=== PATIENT | female | born 1980 | race Caucasian/White ===

== ENCOUNTER → 2021-01-25 | Outpatient (CLI) | payer SELFPAY ==
[2021-01-25 14:43] LABS: Basophils # (A) 0.12 X 10*3/uL (0.00-0.10); Basophils % (A) 1.3 %; Eosinophils # (A) 0.23 X 10*3/uL (0.04-0.35); Eosinophils % (A) 2.4 %; HCT 39.9 % (37.2-46.3); Lymphocytes # (A) 1.97 X 10*3/uL (0.90-5.00); Lymphocytes % (A) 20.5 %; MCH 31.4 pg (27.0-32.0); MCHC 32.6 g/dL (32.0-37.0); MCV 96.4 fL (80.0-97.0); Mean Platelet Volume 10.1 fL (9.5-12.2); Monocytes # (A) 0.78 X 10*3/uL (0.20-1.00); Monocytes % (A) 8.1 %; Neutrophils # (A) 6.48 X 10*3/uL (1.80-7.70); Neutrophils % (A) 67.5 %; Platelet Count 394 X 10*3/uL (140-440); RBC 4.14 X 10*6/uL (4.10-5.20); RDW 12.6 % (11.5-14.5)
[2021-01-25 15:40] LABS: ALT 18 U/L (8-44); AST 27 U/L (13-35); Albumin/Globulin Ratio 1.64 (1.60-3.17); Alkaline Phosphatase 70 U/L (41-126); Bilirubin, Conjugated <0.20 mg/dL (0.20-0.40); Chol/HDL Ratio 4.04; Cholesterol 210 mg/dL (0-200); Globulin 2.8 g/dL (1.6-3.3); Glucose 96 mg/dL (70-110); Iron 84 ug/dL (50-170); LDL Cholesterol,Calculated 135.4 mg/dL (0.0-131.0); Total Bilirubin 0.3 mg/dL (0.3-1.2); Total Iron Binding Capacity 356 ug/dL (228-460); Total Protein 7.4 g/dL (6.2-8.2)
[2021-01-25 20:37] LABS: Hemoglobin A1C 5.5 % (4.0-6.0)
== END | disposition home or self-care (01) ==
LOC: LABWHC1 08:51
DX: D50.9 Iron deficiency anemia, unspecified (principal); Z79.899 Other long term (current) drug therapy
CPT/HCPCS: 36415; 80061; 80076; 82728; 82947; 83036; 83540; 83550; 84439; 84443; 85025

== ENCOUNTER 2021-11-27 08:19 | Inpatient (IN) | payer OTHER ==
[2021-11-27 08:25] LABS: Glucose,Whole Blood >600 mg/dL (75-99)
[2021-11-27] MEDS ORDERED: SODIUM CHLORIDE 0.9% 1,000 ML IV ONE ×3 (08:34→11:26)
--- NOTE | 2021-11-27 08:38 | ED ---
General Adult HPI - General Chief complaint: Altered Mental Status Stated complaint: altered mental status Time Seen by Provider: 11/27/21 08:20 Source: patient, EMS, RN notes reviewed, old records reviewed Mode of arrival: EMS Limitations: altered mental status - History of Present Illness Initial comments: 41-year-old female presenting for evaluation of altered mental status. Patient was found outside by paramedics after daughter had called. Uncertain how long she was outside her what the exact circumstances were. She is confused but able to answer some simple questions. She denies pain complaints time my evaluation. She denies headache. Patient was noted to have a significantly elevated blood glucose by paramedics and there was no reported history of diabetes at least at this time. - Related Data Home Medications Medication Instructions Recorded Confirmed ALPRAZolam [Xanax] 0.5 mg PO HS 11/27/21 11/27/21 ALPRAZolam [Xanax] 1 mg PO DAILY 11/27/21 11/27/21 ARIPiprazole [Abilify] 10 mg PO DAILY 11/27/21 11/27/21 Escitalopram [Lexapro] 40 mg PO DAILY 11/27/21 11/27/21 lamoTRIgine [LaMICtal] 100 mg PO DAILY 11/27/21 11/27/21 Allergies Allergy/AdvReac Type Severity Reaction Status Date / Time Penicillins Allergy Unknown Verified 11/27/21 10:25 Review of Systems ROS Statement: Those systems with pertinent positive or pertinent negative responses have been documented in the HPI. ROS Other: All systems not noted in ROS Statement are negative. Past Medical History Additional Past Medical History / Comment(s): bipolar, high functioning autism History of Any Multi-Drug Resistant Organisms: Unobtainable Past Surgical History: Unable to Obtain Past Psychological History: Unable to Obtain Smoking Status: Unknown if ever smoked Past Alcohol Use History: Unable to Obtain Past Drug Use History: Unable to Obtain General Exam Limitations: altered mental status General appearance: lethargic, in distress Head exam: Present: atraumatic, normocephalic Eye exam: Present: normal appearance, PERRL ENT exam: Present: mucous membranes dry Neck exam: Present: normal inspection. Absent: tenderness, meningismus Respiratory exam: Present: respiratory distress (Tachypneic with good air entry bilaterally) Cardiovascular Exam: Present: regular rate, normal rhythm GI/Abdominal exam: Present: soft. Absent: distended, tenderness, guarding, rebound Extremities exam: Present: normal inspection, normal capillary refill. Absent: pedal edema Neurological exam: Present: alert. Absent: oriented X3 (Answering simple questions but slow to respond), motor sensory deficit Skin exam: Present: pallor. Absent: warm (Cold to touch) Course Vital Signs 11/27/21 11/27/21 11/27/21 08:21 08:35 08:50 Temperature 93.5 F L Pulse Rate 90 96 92 Respiratory 32 H 40 H 40 H Rate Blood Pressure 87/61 95/61 O2 Sat by Pulse 100 100 98 Oximetry 11/27/21 11/27/21 11/27/21 09:23 10:00 10:27 Temperature Pulse Rate 113 H 109 H 112 H Respiratory 40 H 40 H 32 H Rate Blood Pressure 118/71 106/71 110/71 O2 Sat by Pulse 98 98 98 Oximetry 11/27/21 10:48 Temperature 96.9 F L Pulse Rate 113 H Respiratory 30 H Rate Blood Pressure 120/80 O2 Sat by Pulse 97 Oximetry EKG Findings - EKG Comments: EKG Findings:: Sinus tachycardia rate of 110 SC interval 162, QRS duration 88, QTC 412, PTT was in the precordial leads, no ST segment elevation. Medical Decision Making - Medical Decision Making 41-year-old female presenting with confusion after being found outside. Further history is obtained from the patient's mother and daughter who states she had a vomiting illness throughout the day yesterday. Patient has no prior history of diabetes. Initial sugars greater than 600. Workup is initiated. She's profoundly acidotic on venous gas with a pH of 6.95. She has an undetectable CO2 she is in a accommodation of lactic acidosis and diabetic ketoacidosis with H&H at bedtime and hyperosmolality with a osmolality of 367. IV fluid resuscitation was begun immediately. Laboratory studies will be repeated on a regular basis. She will be continued on insulin drip and will saline infusion. She is admitted to Dr. Carrion as noted was aware of the patient and will be admitted to the ICU, Dr. Tripathi is able to evaluate the patient in the emergency department Chest x-ray and CT brain are pending. - Lab Data Result diagrams: 11/27/21 09:38 11/27/21 09:38 Lab Results 05/10/1611/27/21 11/27/21 Range/Units 08:24 08:34 09:38 WBC 28.4 H (3.8-10.6) k/uL RBC 4.68 (3.80-5.40) m/uL Hgb 14.3 (11.4-16.0) gm/dL Hct 51.1 H (34.0-46.0) % MCV 109.2 H (80.0-100.0) fL MCH 30.7 (25.0-35.0) pg MCHC 28.1 L (31.0-37.0) g/dL RDW 12.3 (11.5-15.5) % Plt Count 268 (150-450) k/uL MPV 10.7 Neutrophils % 86 % Lymphocytes % 8 % Monocytes % 5 % Eosinophils % 0 % Basophils % 1 % Neutrophils # 24.5 H (1.3-7.7) k/uL Lymphocytes # 2.1 (1.0-4.8) k/uL Monocytes # 1.3 H (0-1.0) k/uL Eosinophils # 0.1 (0-0.7) k/uL Basophils # 0.2 (0-0.2) k/uL Hypochromasia Marked Macrocytosis Moderate PT (9.0-12.0) sec INR (<1.2) APTT (22.0-30.0) sec VBG pH 6.95 L* (7.31-7.41) VBG pCO2 12 L* (37-51) mmHg VBG HCO3 2 L* (24-28) mmol/L Sodium (137-145) mmol/L Potassium (3.5-5.1) mmol/L Chloride (98-107) mmol/L Carbon Dioxide (22-30) mmol/L Anion Gap mmol/L BUN (7-17) mg/dL Creatinine (0.52-1.04) mg/dL Est GFR (CKD-EPI)AfAm (>60 ml/min/1.73 sqM) Est GFR (CKD-EPI)NonAf (>60 ml/min/1.73 sqM) Glucose (74-99) mg/dL POC Glucose (mg/dL) >600 H (75-99) mg/dL POC Glu Stapler Machine ID Marcia, Gaston Osmolality (280-301) mosm/kg Plasma Lactic Acid Telly (0.7-2.0) mmol/L Calcium (8.4-10.2) mg/dL Magnesium (1.6-2.3) mg/dL Total Bilirubin (0.2-1.3) mg/dL AST (14-36) U/L ALT (4-34) U/L Alkaline Phosphatase (38-126) U/L Creatine Kinase (30-135) U/L Troponin I (0.000-0.034) ng/mL Total Protein (6.3-8.2) g/dL Albumin (3.5-5.0) g/dL Serum Alcohol mg/dL Acetone, Qual (Negative) 11/27/21 11/27/21 11/27/21 Range/Units 09:38 09:38 09:55 WBC (3.8-10.6) k/uL RBC (3.80-5.40) m/uL Hgb (11.4-16.0) gm/dL Hct (34.0-46.0) % MCV (80.0-100.0) fL MCH (25.0-35.0) pg MCHC (31.0-37.0) g/dL RDW (11.5-15.5) % Plt Count (150-450) k/uL MPV Neutrophils % % Lymphocytes % % Monocytes % % Eosinophils % % Basophils % % Neutrophils # (1.3-7.7) k/uL Lymphocytes # (1.0-4.8) k/uL Monocytes # (0-1.0) k/uL Eosinophils # (0-0.7) k/uL Basophils # (0-0.2) k/uL Hypochromasia Macrocytosis PT 10.8 (9.0-12.0) sec INR 1.0 (<1.2) APTT 23.9 (22.0-30.0) sec VBG pH (7.31-7.41) VBG pCO2 (37-51) mmHg VBG HCO3 (24-28) mmol/L Sodium 136 L (137-145) mmol/L Potassium 5.0 (3.5-5.1) mmol/L Chloride 95 L (98-107) mmol/L Carbon Dioxide <5 L* (22-30) mmol/L Anion Gap mmol/L BUN 26 H (7-17) mg/dL Creatinine 2.77 H (0.52-1.04) mg/dL Est GFR (CKD-EPI)AfAm 24 (>60 ml/min/1.73 sqM) Est GFR (CKD-EPI)NonAf 21 (>60 ml/min/1.73 sqM) Glucose 1131 H* (74-99) mg/dL POC Glucose (mg/dL) (75-99) mg/dL POC Glu Stapler Machine ID Osmolality (280-301) mosm/kg Plasma Lactic Acid Telly 5.8 H* (0.7-2.0) mmol/L Calcium 9.5 (8.4-10.2) mg/dL Magnesium 3.0 H (1.6-2.3) mg/dL Total Bilirubin 0.6 (0.2-1.3) mg/dL AST 28 (14-36) U/L ALT 20 (4-34) U/L Alkaline Phosphatase 143 H (38-126) U/L Creatine Kinase 26 L (30-135) U/L Troponin I (0.000-0.034) ng/mL Total Protein 8.3 H (6.3-8.2) g/dL Albumin 5.0 (3.5-5.0) g/dL Serum Alcohol <10 mg/dL Acetone, Qual Positive (Negative) 11/27/21 11/27/21 Range/Units 09:55 09:55 WBC (3.8-10.6) k/uL RBC (3.80-5.40) m/uL Hgb (11.4-16.0) gm/dL Hct (34.0-46.0) % MCV (80.0-100.0) fL MCH (25.0-35.0) pg MCHC (31.0-37.0) g/dL RDW (11.5-15.5) % Plt Count (150-450) k/uL MPV Neutrophils % % Lymphocytes % % Monocytes % % Eosinophils % % Basophils % % Neutrophils # (1.3-7.7) k/uL Lymphocytes # (1.0-4.8) k/uL Monocytes # (0-1.0) k/uL Eosinophils # (0-0.7) k/uL Basophils # (0-0.2) k/uL Hypochromasia Macrocytosis PT (9.0-12.0) sec INR (<1.2) APTT (22.0-30.0) sec VBG pH (7.31-7.41) VBG pCO2 (37-51) mmHg VBG HCO3 (24-28) mmol/L Sodium (137-145) mmol/L Potassium (3.5-5.1) mmol/L Chloride (98-107) mmol/L Carbon Dioxide (22-30) mmol/L Anion Gap mmol/L BUN (7-17) mg/dL Creatinine (0.52-1.04) mg/dL Est GFR (CKD-EPI)AfAm (>60 ml/min/1.73 sqM) Est GFR (CKD-EPI)NonAf (>60 ml/min/1.73 sqM) Glucose (74-99) mg/dL POC Glucose (mg/dL) (75-99) mg/dL POC Glu Stapler Machine ID Osmolality 367 H* (280-301) mosm/kg Plasma Lactic Acid Telly (0.7-2.0) mmol/L Calcium (8.4-10.2) mg/dL Magnesium (1.6-2.3) mg/dL Total Bilirubin (0.2-1.3) mg/dL AST (14-36) U/L ALT (4-34) U/L Alkaline Phosphatase (38-126) U/L Creatine Kinase (30-135) U/L Troponin I <0.012 (0.000-0.034) ng/mL Total Protein (6.3-8.2) g/dL Albumin (3.5-5.0) g/dL Serum Alcohol mg/dL Acetone, Qual (Negative) Critical Care Time Critical Care Time: Yes Total Critical Care Time: 35 Disposition Clinical Impression: Delirium due to general medical condition, Altered mental status, Hyperosmolar hyperglycemic state (HHS), DKA (diabetic ketoacidosis) Disposition: ADMITTED IP TO THIS HOSP Condition: Serious Is patient prescribed a controlled substance at d/c from ED?: No Time of Disposition: 10:58
[2021-11-27 09:58] LABS: ALT 20 U/L (4-34); AST 28 U/L (14-36); African American GFR (CKD) 24 (>60 ml/min/1.73 sqM); Alcohol <10 mg/dL; Alkaline Phosphatase 143 U/L (38-126); Blood Urea Nitrogen 26 mg/dL (7-17); Calcium 9.5 mg/dL (8.4-10.2); Chloride 95 mmol/L (98-107); Creatine Kinase 26 U/L (30-135); Non-African American GFR(CKD) 21 (>60 ml/min/1.73 sqM); Sodium 136 mmol/L (137-145); Total Bilirubin 0.6 mg/dL (0.2-1.3); Total Protein 8.3 g/dL (6.3-8.2)
[2021-11-27 10:12] LABS: Carbon Dioxide <5 mmol/L (22-30)
[2021-11-27 10:13] LABS: Glucose 1131 mg/dL (74-99)
[2021-11-27 10:14] LABS: VBG PH 6.95 (7.31-7.41)
[2021-11-27 10:27] LABS: Basophils # (A) 0.2 k/uL (0-0.2); Basophils % (A) 1 %; Eosinophils # (A) 0.1 k/uL (0-0.7); Eosinophils % (A) 0 %; HCT 51.1 % (34.0-46.0); HGB 14.3 gm/dL (11.4-16.0); Hypochromasia Marked; Lymphocytes # (A) 2.1 k/uL (1.0-4.8); Lymphocytes % (A) 8 %; MCH 30.7 pg (25.0-35.0); MCHC 28.1 g/dL (31.0-37.0); MCV 109.2 fL (80.0-100.0); Macrocytosis Moderate; Mean Platelet Volume 10.7; Monocytes # (A) 1.3 k/uL (0-1.0); Monocytes % (A) 5 %; Neutrophils # (A) 24.5 k/uL (1.3-7.7); Neutrophils % (A) 86 %; Platelet Count 268 k/uL (150-450); RBC 4.68 m/uL (3.80-5.40); RDW 12.3 % (11.5-15.5); WBC 28.4 k/uL (3.8-10.6)
[2021-11-27] MEDS ORDERED: D5-0.45% NACL WITH KCL 20MEQ/L 1,000 ML IV SCH (10:30)
[2021-11-27] MEDS: INSULIN REGULAR 100 UNIT in SODIUM CHLORIDE 0.9% 100 ML IV SCH ×3 (10:42→22:00)
[2021-11-27] MEDS: SODIUM CHLORIDE 0.9% 1,000 ML IV SCH ×4 (10:44→23:40)
[2021-11-27 10:52] LABS: Glucose,Whole Blood >600 mg/dL (75-99)
[2021-11-27 10:54] LABS: ABG Oxygen Saturation 97.3 % (94-97); ABG PO2 138 mmHg (83-108); Allen Test Performed? Yes
[2021-11-27 10:54] LABS: Partial Thromboplastin Time 23.9 sec (22.0-30.0); Prothrombin Time 10.8 sec (9.0-12.0)
[2021-11-27 10:56] LABS: ABG PCO2 <15 mmHg (35-45); ABG PH 6.93 (7.35-7.45)
--- NOTE | 2021-11-27 11:37 | CT ---
EXAMINATION TYPE: CT brain wo con DATE OF EXAM: 11/27/2021 COMPARISON: None HISTORY: Altered mental status. CT DLP: 1159.4 mGycm. Automated Exposure Control for Dose Reduction was Utilized. TECHNIQUE: CT scan of the head is performed without contrast. FINDINGS: There is limited exam due to artifact. Findings are suspicious for a area of low attenuat ion involving the right temporal lobe. No obvious acute hemorrhage or mass effect. No midline shift. Calvarium intact. Orbits are symmetric. Cerebellar tonsils low-lying in position. Sella turcica has a normal appearance . Sinuses are clear. Asymmetric fullness to the right cavernous sinus. Recommend follow-up MRI. IMPRESSION: 1. Exam is limited due to artifact however, there is a suggestion of an area of low attenuation invol ving the right temporal lobe. This may be artifactual although early ischemia or other etiologies in the differential diagnosis. Recommend MRI of the brain. Correlate for any history of seizure.
[2021-11-27] MEDS: HEPARIN SODIUM,PORCINE/PF 5,000 UNIT/0.5 ML SYRINGE SQ SCH ×2 (11:42→20:20)
[2021-11-27] MEDS: PANTOPRAZOLE 40 MG/10 ML VIAL IVP SCH (11:42)
[2021-11-27 11:52] LABS: Glucose,Whole Blood >600 mg/dL (75-99)
--- NOTE | 2021-11-27 11:53 | XR ---
EXAMINATION TYPE: XR chest 1V portable DATE OF EXAM: 11/27/2021 COMPARISON: NONE HISTORY: Altered mental status TECHNIQUE: Single frontal view of the chest is obtained. FINDINGS: There is patchy density present at the left costophrenic angle level possibly right, pleur al effusion, or pneumothorax seen. The cardiac silhouette size is within normal limits. There are o verlying leads. The osseous structures are intact. IMPRESSION: Correlate for pneumonia, follow-up recommended
--- NOTE | 2021-11-27 12:00 | P.CNPUL ---
History of Present Illness Consult date: 11/27/21 Requesting physician: Meghna Eugene Reason for consult: other (Acute diabetic ketoacidosis) Chief complaint: Altered mental status and vomiting History of present illness: This is a 41-year-old female with history of bipolar disorder, no previous documented history of diabetes. No previous medical illnesses except for bipolar disorder and generalized anxiety disorder, history of depression, geoff abreu was found on the ground by her daughter and paramedics were called. Upon arrival, the patient was on the ground, and confused. Patient could only answer very simple questions. And she has been complaining of vomiting for one day. No other symptoms. It is not clear how long has the patient was down on the ground. Patient was brought into the ER, she was noted to be confused, altered mental status, her initial workup revealed a blood sugar as high as 1131, patient was acidotic, she had a significantly elevated anion gap, she was metabolically acidotic, and she had positive ketones. Lactic acid was 5.8. ABG showed a pO2 of 138 pCO2 of less than 15 pH of 6.93 and bicarb was less than 5. CBC showed leukocytosis with WBC of 28.4. Hemoglobin 14.3. CT of the brain showed an area of low attenuation involving the temporal lobe/right, and the radiologist couldn't tell whether this is artifactual or suggestive of ischemic change. Hence he recommended MRI. Question and history of seizure, but the clinical history does not suggest any seizure history. According to her mom and to her daughter at bedside. As a matter of fact according to her family members, patient has never been diagnosed with diabetes the patient herself is a very poor historian. And she is fairly confused. Review of Systems ROS unobtainable: due to mental status Past Medical History Additional Past Medical History / Comment(s): bipolar, high functioning autism History of Any Multi-Drug Resistant Organisms: Unobtainable Past Surgical History: Unable to Obtain Past Psychological History: Unable to Obtain Smoking Status: Unknown if ever smoked Past Alcohol Use History: Unable to Obtain Past Drug Use History: Unable to Obtain Medications and Allergies Home Medications Medication Instructions Recorded Confirmed Type ALPRAZolam [Xanax] 0.5 mg PO HS 11/27/21 11/27/21 History ALPRAZolam [Xanax] 1 mg PO DAILY 11/27/21 11/27/21 History ARIPiprazole [Abilify] 10 mg PO DAILY 11/27/21 11/27/21 History Escitalopram [Lexapro] 40 mg PO DAILY 11/27/21 11/27/21 History lamoTRIgine [LaMICtal] 100 mg PO DAILY 11/27/21 11/27/21 History Allergies Allergy/AdvReac Type Severity Reaction Status Date / Time Penicillins Allergy Unknown Verified 11/27/21 10:25 Physical Exam Vitals: Vital Signs Temp Pulse Resp BP Pulse Ox 11/27/21 10:48 96.9 F L 113 H 30 H 120/80 97 11/27/21 10:27 112 H 32 H 110/71 98 11/27/21 10:00 109 H 40 H 106/71 98 11/27/21 09:23 113 H 40 H 118/71 98 11/27/21 08:50 92 40 H 95/61 98 11/27/21 08:35 96 40 H 100 11/27/21 08:21 93.5 F L 90 32 H 87/61 100 Intake and Output 11/26/21 11/27/21 11/27/21 22:59 06:59 14:59 Other: Weight 63.503 kg General appearance: Revealed a 41-year-old female, lethargic, confused, not in respiratory distress. Head exam: Atraumatic, normocephalic. Eye exam: PERRLA, EOMI, nonicteric, dry mucous membranes. ENT exam: Dry mucous membranes otherwise negative. Neck exam: Supple no neck masses no JVD no stridor. Respiratory exam: Symmetrical chest expansion clear throughout no crackles or rhonchi or wheezes Cardiovascular Exam: Normal S1 and S2, no S3 gallop. GI/Abdominal exam: Soft nontender no megaly no rebound no guarding. Extremities exam: No clubbing edema or cyanosis. Neurological exam: Arousable, answers very simple questions, confused, otherwise no gross focal deficit. Skin exam: Dry skin, cold to touch. Results - Laboratory Findings CBC and BMP: 11/27/21 09:38 11/27/21 09:38 ABG ABG pH 6.93 (7.35-7.45) L* 11/27/21 10:51 ABG pCO2 <15 mmHg (35-45) L* 11/27/21 10:51 ABG pO2 138 mmHg (83-108) H 11/27/21 10:51 ABG O2 Saturation 97.3 % (94-97) H 11/27/21 10:51 PT/INR, D-dimer PT 10.8 sec (9.0-12.0) 11/27/21 09:55 INR 1.0 (<1.2) 11/27/21 09:55 Abnormal lab findings: Abnormal Labs 11/27/21 11/27/21 11/27/21 08:24 08:34 09:38 WBC 28.4 H Hct 51.1 H MCV 109.2 H MCHC 28.1 L Neutrophils # 24.5 H Monocytes # 1.3 H ABG pH ABG pCO2 ABG pO2 ABG O2 Saturation VBG pH 6.95 L* VBG pCO2 12 L* VBG HCO3 2 L* Sodium Chloride Carbon Dioxide BUN Creatinine Glucose POC Glucose (mg/dL) >600 H Osmolality Plasma Lactic Acid Telly Magnesium Alkaline Phosphatase Creatine Kinase Total Protein 11/27/21 11/27/21 11/27/21 09:38 09:38 09:55 WBC Hct MCV MCHC Neutrophils # Monocytes # ABG pH ABG pCO2 ABG pO2 ABG O2 Saturation VBG pH VBG pCO2 VBG HCO3 Sodium 136 L Chloride 95 L Carbon Dioxide <5 L* BUN 26 H Creatinine 2.77 H Glucose 1131 H* POC Glucose (mg/dL) Osmolality 367 H* Plasma Lactic Acid Telly 5.8 H* Magnesium 3.0 H Alkaline Phosphatase 143 H Creatine Kinase 26 L Total Protein 8.3 H 11/27/21 11/27/21 10:41 10:51 WBC Hct MCV MCHC Neutrophils # Monocytes # ABG pH 6.93 L* ABG pCO2 <15 L* ABG pO2 138 H ABG O2 Saturation 97.3 H VBG pH VBG pCO2 VBG HCO3 Sodium Chloride Carbon Dioxide BUN Creatinine Glucose POC Glucose (mg/dL) >600 H Osmolality Plasma Lactic Acid Telly Magnesium Alkaline Phosphatase Creatine Kinase Total Protein - Diagnostic Findings Chest x-ray: image reviewed (Chest x-ray is suspicious for left lower lobe infiltrate/atelectasis) Additional studies: CT brain as noted earlier in HPI. Assessment and Plan Assessment: Impression: New onset diabetes with acute diabetic ketoacidosis Left lower lobe pneumonia, possible aspiration considering her clinical history. Abnormal CT of the brain, questionable artifact versus ischemic infarct in the right parietal lobe. Hence I'm recommending neurological evaluation. History of bipolar disorder. Anion gap metabolic acidosis secondary to acute DKA. Acute kidney injury secondary to DKA, suspect pre-renal azotemia. Left lower lobe pneumonia, community-acquired or could be related to aspiration. Leukocytosis secondary to above Recommendation: Admit the patient to the ICU. Continue treatment of DKA as per protocol. Close monitoring of her electrolytes and specially potassium as it may need significant replacement as we correct her DKA. Continue IV fluids and insulin drip. GI and DVT prophylaxis. Empiric antibiotics for presumptive left lower lobe pneumonia Neurological consultation for abnormal CT of the brain. Discussed her clinical situation with the family at bedside including mother and daughter. We will continue to follow. Time with Patient: Greater than 30
[2021-11-27 12:11] LABS: Glucose,Whole Blood >600 mg/dL (75-99)
[2021-11-27 12:46] LABS: Glucose,Whole Blood >600 mg/dL (75-99)
--- NOTE | 2021-11-27 13:19 | P.HPIM ---
History of Present Illness 41-year-old female came in altered mental status patient is unresponsive at this time unable to get any history from the patient patient that was found by the daughter in the driveway unresponsive. Patient is found to have highly elevated blood sugars of 11,000 with an anion gap of around 36. Patient is not a diabetic. Patient usually can drive although patient does have some hemorrhoidal issues including ADHD. Patient is subsequently admitted to ICU. Patient has lactic acid of around 5.8 chest x-ray was read as possibly of pneumonia because of which patient was started on Rocephin and maybe some aspiration. Unable to look at the X-ray images at this time, CT of the brain showed an area of low attenuation involving the temporal lobe on the right side probably artifact. REVIEW OF SYSTEMS: Unable to obtain due to her clinical condition PHYSICAL EXAMINATION: GENERAL: Drowsy CPAP response to painful stimuli not in any acute distress. Well developed, well nourished. HEENT: Pupils are round and equally reacting to light. EOMI. No scleral icterus. No conjunctival pallor. Normocephalic, atraumatic. No pharyngeal erythema. No thyromegaly. CARDIOVASCULAR: S1 and S2 present. No murmurs, rubs, or gallops. PULMONARY: Chest is clear to auscultation, no wheezing or crackles. ABDOMEN: Soft, nontender, nondistended, normoactive bowel sounds. No palpable organomegaly. MUSCULOSKELETAL: No joint swelling or deformity. EXTREMITIES: No cyanosis, clubbing, or pedal edema. NEUROLOGICAL: Unable to assess due to her clinical condition SKIN: No rashes. Assessment and plan -Altered mental status. Once encephalopathy secondary to highly elevated blood sugars. -New-onset type 2 diabetes mellitus with the diabetic ketoacidosis/hyperosmolar state patient is on 200 mL of normal saline and patient is on IV insulin which will be continued close monitoring of electrolytes. Patient is presently on DKA protocol -Findings of the artifact versus ischemic infarct. -Bipolar disorder -Anion gap metabolic acidosis secondary to DKA lactic acidosis and lactic acidosis secondary to severe dehydration next and have an acute renal failure related azotemia secondary to dehydration from a hyperosmolar state and hyperglycemic state. -Possibly of left lower lobe pneumonia may be aspiration continue with her pre sent antibiotics -Leukocytosis secondary to diabetic ketoacidosis as well as pneumonia. DVT prophylaxis: Subcutaneous heparin Past Medical History Additional Past Medical History / Comment(s): Recently complained of eyesight problem. History of Any Multi-Drug Resistant Organisms: None Reported Past Surgical History: Section, Orthopedic Surgery Additional Past Surgical History / Comment(s): L wrist ganglion cystectomy. Past Anesthesia/Blood Transfusion Reactions: No Reported Reaction Smoking Status: Current every day smoker - Past Family History Father Family Medical History: Vascular Disorder Additional Family Medical History / Comment(s): AAA, has pacemaker. Paternal greatgrandmother had diabetes. Mother Family Medical History: Cancer, Thyroid Disorder Additional Family Medical History / Comment(s): Grave's disease, breast cancer twice. Maternal grandmother had diabetes later in life. Medications and Allergies Home Medications Medication Instructions Recorded Confirmed Type ALPRAZolam [Xanax] 0.5 mg PO HS 11/27/21 11/27/21 History ALPRAZolam [Xanax] 1 mg PO DAILY 11/27/21 11/27/21 History ARIPiprazole [Abilify] 10 mg PO DAILY 11/27/21 11/27/21 History Escitalopram [Lexapro] 40 mg PO DAILY 11/27/21 11/27/21 History lamoTRIgine [LaMICtal] 100 mg PO DAILY 11/27/21 11/27/21 History Allergies Allergy/AdvReac Type Severity Reaction Status Date / Time Penicillins Allergy Unknown Verified 11/27/21 10:25 Physical Exam Vitals: Vital Signs Temp Pulse Resp BP Pulse Ox 11/27/21 12:11 125 H 42 H 124/84 97 11/27/21 11:00 131 H 28 H 126/65 98 11/27/21 10:48 96.9 F L 113 H 30 H 120/80 97 11/27/21 10:27 112 H 32 H 110/71 98 11/27/21 10:00 109 H 40 H 106/71 98 11/27/21 09:23 113 H 40 H 118/71 98 11/27/21 08:50 92 40 H 95/61 98 11/27/21 08:35 96 40 H 100 11/27/21 08:21 93.5 F L 90 32 H 87/61 100 Intake and Output 11/26/21 11/27/21 11/27/21 22:59 06:59 14:59 Intake Total 13.256 Balance 13.256 Intake: Intake, IV Titration 13.256 Amount Insulin Regular 100 unit 13.256 In Sodium Chloride 0.9% 100 ml @ 0.1 UNITS/KG/HR 6.414 mls/hr IV .[id number] [facility] Rx#:[id number] Other: Weight 63.503 kg Results CBC & Chem 7: 11/27/21 09:38 11/27/21 09:38 Labs: Abnormal Lab Results - Last 24 Hours (Table) 11/27/21 11/27/21 11/27/21 Range/Units 08:24 08:34 09:38 WBC 28.4 H (3.8-10.6) k/uL Hct 51.1 H (34.0-46.0) % MCV 109.2 H (80.0-100.0) fL MCHC 28.1 L (31.0-37.0) g/dL Neutrophils # 24.5 H (1.3-7.7) k/uL Monocytes # 1.3 H (0-1.0) k/uL ABG pH (7.35-7.45) ABG pCO2 (35-45) mmHg ABG pO2 (83-108) mmHg ABG O2 Saturation (94-97) % VBG pH 6.95 L* (7.31-7.41) VBG pCO2 12 L* (37-51) mmHg VBG HCO3 2 L* (24-28) mmol/L Sodium (137-145) mmol/L Chloride (98-107) mmol/L Carbon Dioxide (22-30) mmol/L BUN (7-17) mg/dL Creatinine (0.52-1.04) mg/dL Glucose (74-99) mg/dL POC Glucose (mg/dL) >600 H (75-99) mg/dL Osmolality (280-301) mosm/kg Plasma Lactic Acid Telly (0.7-2.0) mmol/L Magnesium (1.6-2.3) mg/dL Alkaline Phosphatase (38-126) U/L Creatine Kinase (30-135) U/L Total Protein (6.3-8.2) g/dL 11/27/21 11/27/21 11/27/21 Range/Units 09:38 09:38 09:55 WBC (3.8-10.6) k/uL Hct (34.0-46.0) % MCV (80.0-100.0) fL MCHC (31.0-37.0) g/dL Neutrophils # (1.3-7.7) k/uL Monocytes # (0-1.0) k/uL ABG pH (7.35-7.45) ABG pCO2 (35-45) mmHg ABG pO2 (83-108) mmHg ABG O2 Saturation (94-97) % VBG pH (7.31-7.41) VBG pCO2 (37-51) mmHg VBG HCO3 (24-28) mmol/L Sodium 136 L (137-145) mmol/L Chloride 95 L (98-107) mmol/L Carbon Dioxide <5 L* (22-30) mmol/L BUN 26 H (7-17) mg/dL Creatinine 2.77 H (0.52-1.04) mg/dL Glucose 1131 H* (74-99) mg/dL POC Glucose (mg/dL) (75-99) mg/dL Osmolality 367 H* (280-301) mosm/kg Plasma Lactic Acid Telly 5.8 H* (0.7-2.0) mmol/L Magnesium 3.0 H (1.6-2.3) mg/dL Alkaline Phosphatase 143 H (38-126) U/L Creatine Kinase 26 L (30-135) U/L Total Protein 8.3 H (6.3-8.2) g/dL 11/27/21 11/27/21 11/27/21 Range/Units 10:41 10:51 11:51 WBC (3.8-10.6) k/uL Hct (34.0-46.0) % MCV (80.0-100.0) fL MCHC (31.0-37.0) g/dL Neutrophils # (1.3-7.7) k/uL Monocytes # (0-1.0) k/uL ABG pH 6.93 L* (7.35-7.45) ABG pCO2 <15 L* (35-45) mmHg ABG pO2 138 H (83-108) mmHg ABG O2 Saturation 97.3 H (94-97) % VBG pH (7.31-7.41) VBG pCO2 (37-51) mmHg VBG HCO3 (24-28) mmol/L Sodium (137-145) mmol/L Chloride (98-107) mmol/L Carbon Dioxide (22-30) mmol/L BUN (7-17) mg/dL Creatinine (0.52-1.04) mg/dL Glucose (74-99) mg/dL POC Glucose (mg/dL) >600 H >600 H (75-99) mg/dL Osmolality (280-301) mosm/kg Plasma Lactic Acid Telly (0.7-2.0) mmol/L Magnesium (1.6-2.3) mg/dL Alkaline Phosphatase (38-126) U/L Creatine Kinase (30-135) U/L Total Protein (6.3-8.2) g/dL 11/27/21 11/27/21 Range/Units 12:09 12:44 WBC (3.8-10.6) k/uL Hct (34.0-46.0) % MCV (80.0-100.0) fL MCHC (31.0-37.0) g/dL Neutrophils # (1.3-7.7) k/uL Monocytes # (0-1.0) k/uL ABG pH (7.35-7.45) ABG pCO2 (35-45) mmHg ABG pO2 (83-108) mmHg ABG O2 Saturation (94-97) % VBG pH (7.31-7.41) VBG pCO2 (37-51) mmHg VBG HCO3 (24-28) mmol/L Sodium (137-145) mmol/L Chloride (98-107) mmol/L Carbon Dioxide (22-30) mmol/L BUN (7-17) mg/dL Creatinine (0.52-1.04) mg/dL Glucose (74-99) mg/dL POC Glucose (mg/dL) >600 H >600 H (75-99) mg/dL Osmolality (280-301) mosm/kg Plasma Lactic Acid Telly (0.7-2.0) mmol/L Magnesium (1.6-2.3) mg/dL Alkaline Phosphatase (38-126) U/L Creatine Kinase (30-135) U/L Total Protein (6.3-8.2) g/dL Thrombosis Risk Factor Assmnt - Choose All That Apply Any of the Below Risk Factors Present?: Yes Each Factor Represents 1 point: Medical pt on bed rest Other Risk Factors: Yes Each Risk Factor Represents 2 Points: Patient confined to bed Other congenital or acquired thrombophilia - If yes, enter type in comment: No Thrombosis Risk Factor Assessment Total Risk Factor Score: 3 Thrombosis Risk Factor Assessment Level: Moderate Risk
[2021-11-27 13:22] LABS: African American GFR (CKD) 31 (>60 ml/min/1.73 sqM); Blood Urea Nitrogen 25 mg/dL (7-17); Calcium 10.3 mg/dL (8.4-10.2); Chloride 113 mmol/L (98-107); Non-African American GFR(CKD) 27 (>60 ml/min/1.73 sqM); Phosphorus 3.8 mg/dL (2.5-4.5); Potassium 5.1 mmol/L (3.5-5.1); Sodium 148 mmol/L (137-145)
[2021-11-27 13:24] LABS: Carbon Dioxide <5 mmol/L (22-30)
[2021-11-27 13:38] LABS: Glucose,Whole Blood >600 mg/dL (75-99)
[2021-11-27 15:08] LABS: Glucose,Whole Blood 494 mg/dL (75-99)
[2021-11-27] MEDS: AZITHROMYCIN 500 MG in SODIUM CHLORIDE 0.9% 250 ML IVPB SCH (15:12)
[2021-11-27 15:59] LABS: Glucose,Whole Blood 527 mg/dL (75-99)
[2021-11-27 16:48] LABS: Amorphous Sediment,Urine Rare /hpf; Appearance,Urine Cloudy (Clear); Bacteria,Urine Occasional /hpf; Bilirubin,Urine Negative (Negative); Blood,Urine Moderate (Negative); Cellular Casts,Urine 6 /lpf (0); Color,Urine Light Yellow; Glucose,Urine (UA) 4+ (Negative); Granular Casts,Urine 16 /lpf (0); Hyaline Casts,Urine 1 /lpf (0-2); Leukocyte Esterase,Urine Negative (Negative); Mucus,Urine Rare /hpf; Nitrite,Urine Negative (Negative); PH, Urine 5.5 (5.0-8.0); Protein,Urine 1+ (Negative); RBC,Urine 3 /hpf (0-5); Specific Gravity,Urine 1.016 (1.001-1.035); Squamous Epithelial Cell,Urine 1 /hpf (0-4); Urobilinogen,Urine <2.0 mg/dL (<2.0); WBC,Urine 8 /hpf (0-5)
[2021-11-27 16:50] LABS: African American GFR (CKD) 35 (>60 ml/min/1.73 sqM); Blood Urea Nitrogen 27 mg/dL (7-17); Calcium 9.3 mg/dL (8.4-10.2); Chloride 117 mmol/L (98-107); Glucose 497 mg/dL (74-99); Non-African American GFR(CKD) 30 (>60 ml/min/1.73 sqM); Phosphorus 1.6 mg/dL (2.5-4.5); Potassium 3.8 mmol/L (3.5-5.1); Sodium 147 mmol/L (137-145)
[2021-11-27 16:52] LABS: Carbon Dioxide <5 mmol/L (22-30)
--- NOTE | 2021-11-27 16:53 | P.CNNES ---
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 Patient's mother was present at this time, who states that patient was having nausea vomiting continuously throughout the day yesterday. Last known well was 8:30 PM last time when she was in usual state of health although she was vomiting. This morning patient was found laying outside on the ground, at 7:20 AM. Unsure for how long she was laying outside. According to EMS flowsheet, when they arrived, found patient laying on the couch , altered and lethargic the GCS of 13. Daughter on location stated that her mother always transferred her to school. This morning when she couldn't find her mother she looked outside and saw her laying in the driveway. She noticed her mother was confused and slow to respond. She was able to get the patient to her feet and had to assist her to walk around inside. She does not know how long was she outside. No seizure history. When EMS evaluated, patient would open her eyes to some questions but did not know what is going on or what day it was. There was no facial droop and the patient was moving her extremities freely. The patient's extremities were "depression she was pale. Glucose was 405. Patient's daughter mentioned that patient was nauseated and vomited all day yesterday. EKG shows sinus tachycardia on the monitor. Patient was given a fluid bolus and oxygen was started at 3 later per minute. Patient became more alert and opening her eyes more frequently. She was still confused. Patient's blood pressure was 104/61 pulse rate 170 and respirations 16, saturation 97%. CT head revealed exam limited due to artifact however there is suggestion of an area of low attenuation involving the right temporal lobe. This may be artifactual although early ischemia or other etiologies in the differential diagnosis. Recommend MRI of the brain. I personally reviewed computed tomography scan of the head, and agree with the patient appears probably artifactual. EKG shows sinus tachycardia. Chest x-ray showed correlation for pneumonia, follow-up recommended. Patient's blood tests shows WBC 28.4 hemoglobin 14.3 elevated MCV 109.2, platelets 268. PT/PTT normal. VBG with pH 6.95, pCO2 12 and at C3 to. Sodium 136 potassium 5.0, BUN 26 creatinine 2.77. Glucose was 1131. Osmolality was elevated at 367/301. Lactic acid was 5.8. Hepatic panel normal. CPK normal. Troponin negative. Serum acetone was positive. Blood alcohol level negative. Patient's ABG showed pH of 6.93, pCO2 less than 15, pO2 138 saturation 97%. Patient had a previous EEG performed on 01/11/2015 for "rule out absence Seizures", Which Was Normal. Calcium 10.3. At present patient's mother has noticed that when she speaks, she is slurring her words. Patient has smoked 1 pack per day for 20 years. Denies any alcohol. No hypertension, no previous history of diabetes. Review of Systems Patient's mother states that she had no fever. She did test Covid home testing, that was negative yesterday. Patient has bipolar disorder under control. Also has high functioning autistic disorder that was diagnosed at age 29. ROS unobtainable: due to mental status Past Medical History Additional Past Medical History / Comment(s): Recently complained of eyesight problem. History of Any Multi-Drug Resistant Organisms: None Reported Past Surgical History: Section, Orthopedic Surgery Additional Past Surgical History / Comment(s): L wrist ganglion cystectomy. Past Anesthesia/Blood Transfusion Reactions: No Reported Reaction Smoking Status: Current every day smoker - Past Family History Father Family Medical History: Vascular Disorder Additional Family Medical History / Comment(s): AAA, has pacemaker. Paternal greatgrandmother had diabetes. Mother Family Medical History: Cancer, Thyroid Disorder Additional Family Medical History / Comment(s): Grave's disease, breast cancer twice. Maternal grandmother had diabetes later in life. Medications and Allergies Home Medications Medication Instructions Recorded Confirmed Type ALPRAZolam [Xanax] 0.5 mg PO HS 11/27/21 11/27/21 History ALPRAZolam [Xanax] 1 mg PO DAILY 11/27/21 11/27/21 History ARIPiprazole [Abilify] 10 mg PO DAILY 11/27/21 11/27/21 History Escitalopram [Lexapro] 40 mg PO DAILY 11/27/21 11/27/21 History lamoTRIgine [LaMICtal] 100 mg PO DAILY 11/27/21 11/27/21 History Allergies Allergy/AdvReac Type Severity Reaction Status Date / Time Penicillins Allergy Unknown Verified 11/27/21 10:25 Physical Examination - Vital Signs Vital Signs: Vital Signs Temp Pulse Resp BP Pulse Ox 11/27/21 13:00 97.6 F 133 H 25 H 125/106 98 11/27/21 12:11 125 H 42 H 124/84 97 11/27/21 11:00 131 H 28 H 126/65 98 11/27/21 10:48 96.9 F L 113 H 30 H 120/80 97 11/27/21 10:27 112 H 32 H 110/71 98 11/27/21 10:00 109 H 40 H 106/71 98 11/27/21 09:23 113 H 40 H 118/71 98 11/27/21 08:50 92 40 H 95/61 98 11/27/21 08:35 96 40 H 100 11/27/21 08:21 93.5 F L 90 32 H 87/61 100 Intake and Output 11/26/21 11/27/21 11/27/21 22:59 06:59 14:59 Intake Total 19.555 Balance 19.555 Intake: Intake, IV Titration 19.555 Amount Insulin Regular 100 unit 19.555 In Sodium Chloride 0.9% 100 ml @ 0.1 UNITS/KG/HR 6.414 mls/hr IV .[id number] [facility] Rx#:[id number] Other: Weight 63.503 kg Patient is a middle aged female, who is obviously encephalopathic, laying in the bed. Patient is minimally opening her eyes to calling her name. She then closes it right away. When asked about headache patient states "yes". Then states "not really". When she was asked again if she is headache, she nodded yes. She could not rate the headache on scale of 1-10. Limited speech was clear. Attention, concentration is severely limited and f und of knowledge cannot be assessed because of mentation. On cranial examination, pupils are equal, round and reacting to light, visual huntley could not be tested. Her extraocular muscles are intact with no nystagmus. Face is symmetric, she did not protrude her tongue. Lower cranial nerves could not be tested because of mental status. On muscle strength testing, patient dinkey engine firer/fireman is equal about 4+ bilaterally. She would not hold her arms up and would drop it down right away onto the bed. Yolanda ent began her feet to painful stimuli equally. She does move her legs spontaneously equally per nurse and mother's report. No obvious focal weakness. Deep tendon reflexes are 1 in the upper limbs, 2+ at the knees, 2 at ankles and plantars downgoing bilaterally. Sensory to touch cannot be assessed because of mentation. Sensory to painful similar was equal responses bilaterally in the feet. Cerebellar function cannot be tested because of mental status. Tone and bulk of muscles normal. Gait not tested. On general examination, there is no carotid bruit or murmur, S1-S2 audible. Abdomen is soft nontender. No organomegaly, bowel sounds present. Chest is clear. Peripheral pulses are present. No edema. Results - Laboratory Findings CBC and BMP: 11/27/21 09:38 11/27/21 13:06 Abnormal Lab Findings: Abnormal Labs 11/27/21 11/27/21 11/27/21 08:24 08:34 09:38 WBC 28.4 H Hct 51.1 H MCV 109.2 H MCHC 28.1 L Neutrophils # 24.5 H Monocytes # 1.3 H ABG pH ABG pCO2 ABG pO2 ABG O2 Saturation VBG pH 6.95 L* VBG pCO2 12 L* VBG HCO3 2 L* Sodium Chloride Carbon Dioxide BUN Creatinine Glucose POC Glucose (mg/dL) >600 H Osmolality Plasma Lactic Acid Telly Calcium Magnesium Alkaline Phosphatase Creatine Kinase Total Protein 11/27/21 11/27/21 11/27/21 09:38 09:38 09:55 WBC Hct MCV MCHC Neutrophils # Monocytes # ABG pH ABG pCO2 ABG pO2 ABG O2 Saturation VBG pH VBG pCO2 VBG HCO3 Sodium 136 L Chloride 95 L Carbon Dioxide <5 L* BUN 26 H Creatinine 2.77 H Glucose 1131 H* POC Glucose (mg/dL) Osmolality 367 H* Plasma Lactic Acid Telly 5.8 H* Calcium Magnesium 3.0 H Alkaline Phosphatase 143 H Creatine Kinase 26 L Total Protein 8.3 H 11/27/21 11/27/21 11/27/21 10:41 10:51 11:51 WBC Hct MCV MCHC Neutrophils # Monocytes # ABG pH 6.93 L* ABG pCO2 <15 L* ABG pO2 138 H ABG O2 Saturation 97.3 H VBG pH VBG pCO2 VBG HCO3 Sodium Chloride Carbon Dioxide BUN Creatinine Glucose POC Glucose (mg/dL) >600 H >600 H Osmolality Plasma Lactic Acid Telly Calcium Magnesium Alkaline Phosphatase Creatine Kinase Total Protein 11/27/21 11/27/21 11/27/21 12:09 12:44 13:06 WBC Hct MCV MCHC Neutrophils # Monocytes # ABG pH ABG pCO2 ABG pO2 ABG O2 Saturation VBG pH VBG pCO2 VBG HCO3 Sodium 148 H Chloride 113 H Carbon Dioxide <5 L* BUN 25 H Creatinine 2.24 H Glucose POC Glucose (mg/dL) >600 H >600 H Osmolality Plasma Lactic Acid Telly Calcium 10.3 H Magnesium Alkaline Phosphatase Creatine Kinase Total Protein 11/27/21 13:36 WBC Hct MCV MCHC Neutrophils # Monocytes # ABG pH ABG pCO2 ABG pO2 ABG O2 Saturation VBG pH VBG pCO2 VBG HCO3 Sodium Chloride Carbon Dioxide BUN Creatinine Glucose POC Glucose (mg/dL) >600 H Osmolality Plasma Lactic Acid Telly Calcium Magnesium Alkaline Phosphatase Creatine Kinase Total Protein Assessment and Plan Assessment: * Altered mental status, likely due to toxic metabolic encephalopathy. * Probable nonketotic hyperosmolar state versus DKA * Hypothermia on presentation (due to found laying down on the ground for unknown period of time). Now temperature is normal. * Acidosis, due to above * New-onset diabetes * Moderate renal insufficiency, uncertain new or old. Perhaps due to dehydration. * High functioning autistic disorder * Macrocytosis, rule out B12, folate deficiency. * Bipolar disorder Plan: * Patient's computed tomography scan of the head revealed questionable abnormality involving the right temporal lobe. It does look artifactual. However we will check MRI of the brain. * EEG to rule out any epileptiform activity. * Medical management as per IM/critical care. * Hemoglobin A1c. B12, folate levels. * Neurology will follow. Thank you for the consult.
[2021-11-27 17:01] LABS: Amphetamine Screen,Urine Not Detected (NotDetected); Barbiturate Screen,Urine Not Detected (NotDetected); Benzodiazepines Screen,Urine Detected (NotDetected); Cocaine Screen,Urine Not Detected (NotDetected); Methadone Screen, Urine Not Detected (NotDetected); Opiate Screen,Urine Not Detected (NotDetected); Oxycodone Screen, Urine Not Detected (NotDetected); Phencyclidine Screen,Urine Not Detected (NotDetected); Tricyclic Antidepressant,Urine Not Detected (NotDetected); Urn Cannabinoid Scrn Detected (NotDetected)
[2021-11-27 17:07] LABS: Glucose,Whole Blood 425 mg/dL (75-99)
[2021-11-27 17:09] LABS: Ketones,Urine 4+ (Negative)
[2021-11-27] MEDS ORDERED: Phosphorus Replacement Protoco 1 EACH MISC MISCELLANE PRN (17:41)
[2021-11-27] MEDS ORDERED: NALOXONE 0.4 MG/ML 1 ML VIAL IV PRN (17:45)
[2021-11-27 18:12] LABS: Glucose,Whole Blood 376 mg/dL (75-99)
[2021-11-27] MEDS: POTASSIUM PHOSPHATE 10 MMOL in SODIUM CHLORIDE 0.9% 250 ML IV SCH ×3 (18:22→22:06)
[2021-11-27 19:03] LABS: Glucose,Whole Blood 346 mg/dL (75-99)
[2021-11-27 20:17] LABS: Glucose,Whole Blood 291 mg/dL (75-99)
[2021-11-27] MEDS: D5-0.45% NACL WITH KCL 20MEQ/L 1,000 ML IV SCH ×3 (20:19→23:02)
[2021-11-27 21:09] LABS: Glucose,Whole Blood 288 mg/dL (75-99)
[2021-11-27 22:03] LABS: Glucose,Whole Blood 291 mg/dL (75-99)
[2021-11-27 22:35] LABS: Calcium 9.3 mg/dL (8.4-10.2); Phosphorus 1.1 mg/dL (2.5-4.5); Potassium 3.6 mmol/L (3.5-5.1)
[2021-11-27 23:02] LABS: Glucose,Whole Blood 243 mg/dL (75-99)
[2021-11-28 00:04] LABS: Glucose,Whole Blood 208 mg/dL (75-99)
[2021-11-28 01:01] LABS: Glucose,Whole Blood 190 mg/dL (75-99)
[2021-11-28] MEDS: INSULIN REGULAR 100 UNIT in SODIUM CHLORIDE 0.9% 100 ML IV SCH (01:10)
[2021-11-28 01:49] LABS: Calcium 9.1 mg/dL (8.4-10.2); Potassium 3.3 mmol/L (3.5-5.1)
[2021-11-28] MEDS ORDERED: Potassium Replacement Protocol 1 EACH MISC MISCELLANE PRN (01:52)
[2021-11-28 02:01] LABS: Glucose,Whole Blood 171 mg/dL (75-99)
[2021-11-28] MEDS: POTASSIUM CHLORIDE 10 MEQ in WATER FOR INJECTION 1 100ML.BAG IVPB SCH ×4 (02:29→08:17)
[2021-11-28] MEDS: D5-0.45% NACL WITH KCL 20MEQ/L 1,000 ML IV SCH ×3 (03:00→09:38)
[2021-11-28 03:05] LABS: Glucose,Whole Blood 114 mg/dL (75-99)
[2021-11-28 03:57] LABS: Glucose,Whole Blood 88 mg/dL (75-99)
[2021-11-28 04:38] LABS: Glucose,Whole Blood 91 mg/dL (75-99)
[2021-11-28 05:46] LABS: Glucose,Whole Blood 141 mg/dL (75-99)
[2021-11-28] MEDS: SODIUM CHLORIDE 0.9% 1,000 ML IV SCH ×2 (06:14→09:27)
[2021-11-28 06:49] LABS: Basophils % (A) 0 %; Eosinophils # (A) 0.1 k/uL (0-0.7); Eosinophils % (A) 1 %; HCT 36.6 % (34.0-46.0); HGB 11.6 gm/dL (11.4-16.0); Lymphocytes # (A) 0.9 k/uL (1.0-4.8); Lymphocytes % (A) 4 %; MCH 30.1 pg (25.0-35.0); MCHC 31.8 g/dL (31.0-37.0); Mean Platelet Volume 9.7; Monocytes # (A) 1.1 k/uL (0-1.0); Monocytes % (A) 4 %; Neutrophils # (A) 22.1 k/uL (1.3-7.7); Neutrophils % (A) 89 %; Platelet Count 305 k/uL (150-450); RBC 3.86 m/uL (3.80-5.40); RDW 12.4 % (11.5-15.5); WBC 24.7 k/uL (3.8-10.6)
[2021-11-28 06:53] LABS: Glucose,Whole Blood 169 mg/dL (75-99)
[2021-11-28 07:04] LABS: MCV 94.8 fL (80.0-100.0)
[2021-11-28 07:11] LABS: African American GFR (CKD) 48 (>60 ml/min/1.73 sqM); Anion Gap 12 mmol/L; Blood Urea Nitrogen 29 mg/dL (7-17); Calcium 9.1 mg/dL (8.4-10.2); Carbon Dioxide 12 mmol/L (22-30); Chloride 126 mmol/L (98-107); Glucose 127 mg/dL (74-99); Non-African American GFR(CKD) 42 (>60 ml/min/1.73 sqM); Phosphorus 1.2 mg/dL (2.5-4.5); Sodium 150 mmol/L (137-145)
[2021-11-28 07:59] LABS: Glucose,Whole Blood 129 mg/dL (75-99)
[2021-11-28] MEDS: PANTOPRAZOLE 40 MG/10 ML VIAL IVP SCH (08:28)
[2021-11-28] MEDS: HEPARIN SODIUM,PORCINE/PF 5,000 UNIT/0.5 ML SYRINGE SQ SCH ×2 (08:28→21:00)
--- NOTE | 2021-11-28 08:57 | XR ---
EXAMINATION TYPE: XR chest 1V DATE OF EXAM: 11/28/2021 COMPARISON: 11/27/2021 HISTORY: Altered mental status TECHNIQUE: Single frontal view of the chest is obtained. FINDINGS: Bilateral lower lobe infiltrate and small effusion. Heart size stable. No pneumothorax. Bi apical pleural thickening. Heart size stable. IMPRESSION: Bilateral infiltrate and small effusion stable correlate for pneumonia.
[2021-11-28] MEDS: AZITHROMYCIN 500 MG in SODIUM CHLORIDE 0.9% 250 ML IVPB SCH (09:16)
[2021-11-28 09:19] LABS: Glucose,Whole Blood 146 mg/dL (75-99)
--- NOTE | 2021-11-28 09:53 | P.PN ---
Subjective Progress Note Date: 11/28/21 Principal diagnosis: New onset diabetes mellitus This is a 41-year-old female with history of bipolar disorder, no previous documented history of diabetes. No previous medical illnesses except for bipolar disorder and generalized anxiety disorder, history of depression, patient was found on the ground by her daughter and paramedics were called. Upon arrival, the patient was on the ground, and confused. Patient could only answer very simple questions. And she has been complaining of vomiting for one day. No other symptoms. It is not clear how long has the patient was down on the ground. Patient was brought into the ER, she was noted to be confused, altered mental status, her initial workup revealed a blood sugar as high as 1131, patient was acidotic, she had a significantly elevated anion gap, she was metabolically acidotic, and she had positive ketones. Lactic acid was 5.8. ABG showed a pO2 of 138 pCO2 of less than 15 pH of 6.93 and bicarb was less than 5. CBC showed leukocytosis with WBC of 28.4. Hemoglobin 14.3. CT of the brain showed an area of low attenuation involving the temporal lobe/right, and the radiologist couldn't tell whether this is artifactual or suggestive of ischemic change. Hence he recommended MRI. Question and history of seizure, but the clinical history does not suggest any seizure history. According to her mom and to her daughter at bedside. As a matter of fact according to her family members, patient has never been diagnosed with diabetes the patient herself is a very poor historian. And she is fairly confused. The patient is seen today 11/28/2021 in follow-up in the intensive care unit. She is more awake and alert today. She is slow to respond but answering questions appropriately. She is maintaining good O2 saturations in the 90s on room air. Chest x-ray continues to show bilateral infiltrates and small effusions. She remains on ceftriaxone and azithromycin. Her blood glucose levels have improved. She is on D5 and half-normal saline with 20 mEq of potassium chloride at 150 MLS per hour. Insulin drip at 2.1 units per hour. Denies any nausea or vomiting currently. Remaining in normal sinus rhythm. White count 24.7. Hemoglobin 11.6. Sodium 150. Potassium 4.0. Chloride 126. Bicarb 12. Anion gap 12. BUN 29. Creatinine 1.55. Glucose 127. Objective - Vital Signs Vital signs: Vital Signs Temp 97.8 F 11/28/21 08:00 Pulse 80 11/28/21 09:00 Resp 24 11/28/21 09:00 BP 117/71 11/28/21 09:00 Pulse Ox 98 11/28/21 09:00 Intake & Output 11/27/21 11/28/21 11/28/21 18:59 06:59 18:59 Intake Total 6474.284 0793.615 629.293 Output Total 1320 515 125 Balance 643.873 2053.615 504.293 Weight 63.503 kg 72.3 kg Intake: IV 1760 2610 620 Azithromycin 500 mg In 250 250 Sodium Chloride 0.9% 250 ml @ 250 mls/hr IVPB DAILY [facility] Rx#:[id number] D5-0.45% NaCl with KCl 1650 300 20Meq/l 1,000 ml @ 150 mls/hr IV .[id number] [facility] Rx# :[id number] Potassium Chloride 10 meq 300 In Water For Injection 1 100ml.bag @ 100 mls/hr IVPB Q1HR [facility] Rx#: [id number] Potassium Phosphate 10 250 mmol In Sodium Chloride 0 .9% 250 ml @ 125 mls/hr IV Q2H [facility] Rx#:[id number] Sodium Chloride 0.9% 1, 1400 400 000 ml @ 200 mls/hr IV . Q5H [facility] Rx#:[id number] Sodium Chloride 0.9% 1000 60 10 20 ml @ 10 mls/hr IV [id number] 1 gm In 50 50 Sodium Chloride 0.9% 50 ml @ 100 mls/hr IVPB Q24HR [facility] Rx#:[id number] Intake, IV Titration 71.087 130.615 9.293 Amount Insulin Regular 100 unit 71.087 130.615 9.293 In Sodium Chloride 0.9% 100 ml @ 0.1 UNITS/KG/HR 6.414 mls/hr IV .[id number] [facility] Rx#:[id number] Output: Urine 1320 515 125 Other: Voiding Method Indwelling Catheter Indwelling Catheter - Exam GENERAL EXAM: Alert, slow to respond but appropriate 41-year-old female patient, on room air, comfortable in no apparent distress. HEAD: Normocephalic. EYES: Normal reaction of pupils, equal size. NOSE: Clear with pink turbinates. THROAT: No erythema or exudates. NECK: No masses, no JVD. CHEST: No chest wall deformity. LUNGS: Equal air entry with basilar crackles left greater than right. CVS: S1 and S2 normal with no audible murmur, regular rhythm. ABDOMEN: No hepatosplenomegaly, normal bowel sounds, no guarding or rigidity. SPINE: No scoliosis or deformity SKIN: No rashes CENTRAL NERVOUS SYSTEM: No focal deficits, tone is normal in all 4 extremities. EXTREMITIES: There is no peripheral edema. No clubbing, no cyanosis. Peripheral pulses are intact. - Labs CBC & Chem 7: 11/28/21 05:39 11/28/21 05:39 Labs: Abnormal Lab Results - Last 24 Hours (Table) 11/27/21 11/27/21 11/27/21 Range/Units 08:34 09:38 09:38 WBC 28.4 H (3.8-10.6) k/uL Hct 51.1 H (34.0-46.0) % MCV 109.2 H (80.0-100.0) fL MCHC 28.1 L (31.0-37.0) g/dL Neutrophils # 24.5 H (1.3-7.7) k/uL Lymphocytes # (1.0-4.8) k/uL Monocytes # 1.3 H (0-1.0) k/uL ABG pH (7.35-7.45) ABG pCO2 (35-45) mmHg ABG pO2 (83-108) mmHg ABG O2 Saturation (94-97) % VBG pH 6.95 L* (7.31-7.41) VBG pCO2 12 L* (37-51) mmHg VBG HCO3 2 L* (24-28) mmol/L Sodium 136 L (137-145) mmol/L Potassium (3.5-5.1) mmol/L Chloride 95 L (98-107) mmol/L Carbon Dioxide <5 L* (22-30) mmol/L BUN 26 H (7-17) mg/dL Creatinine 2.77 H (0.52-1.04) mg/dL Glucose 1131 H* (74-99) mg/dL POC Glucose (mg/dL) (75-99) mg/dL Hemoglobin A1c (0.0-6.0) % Osmolality (280-301) mosm/kg Plasma Lactic Acid Telly (0.7-2.0) mmol/L Calcium (8.4-10.2) mg/dL Phosphorus (2.5-4.5) mg/dL Magnesium 3.0 H (1.6-2.3) mg/dL Alkaline Phosphatase 143 H (38-126) U/L Creatine Kinase 26 L (30-135) U/L Total Protein 8.3 H (6.3-8.2) g/dL Vitamin B12 (200.0-944.0) pg/mL Urine Appearance (Clear) Urine Protein (Negative) Urine Glucose (UA) (Negative) Urine Ketones (Negative) Urine Blood (Negative) Urine WBC (0-5) /hpf Amorphous Sediment (None) /hpf Urine Bacteria (None) /hpf Urine Mucus (None) /hpf U Benzodiazepines Scrn (NotDetected) U Marijuana (THC) Screen (NotDetected) 11/27/21 11/27/21 11/27/21 Range/Units 09:38 09:55 10:41 WBC (3.8-10.6) k/uL Hct (34.0-46.0) % MCV (80.0-100.0) fL MCHC (31.0-37.0) g/dL Neutrophils # (1.3-7.7) k/uL Lymphocytes # (1.0-4.8) k/uL Monocytes # (0-1.0) k/uL ABG pH (7.35-7.45) ABG pCO2 (35-45) mmHg ABG pO2 (83-108) mmHg ABG O2 Saturation (94-97) % VBG pH (7.31-7.41) VBG pCO2 (37-51) mmHg VBG HCO3 (24-28) mmol/L Sodium (137-145) mmol/L Potassium (3.5-5.1) mmol/L Chloride (98-107) mmol/L Carbon Dioxide (22-30) mmol/L BUN (7-17) mg/dL Creatinine (0.52-1.04) mg/dL Glucose (74-99) mg/dL POC Glucose (mg/dL) >600 H (75-99) mg/dL Hemoglobin A1c (0.0-6.0) % Osmolality 367 H* (280-301) mosm/kg Plasma Lactic Acid Telly 5.8 H* (0.7-2.0) mmol/L Calcium (8.4-10.2) mg/dL Phosphorus (2.5-4.5) mg/dL Magnesium (1.6-2.3) mg/dL Alkaline Phosphatase (38-126) U/L Creatine Kinase (30-135) U/L Total Protein (6.3-8.2) g/dL Vitamin B12 (200.0-944.0) pg/mL Urine Appearance (Clear) Urine Protein (Negative) Urine Glucose (UA) (Negative) Urine Ketones (Negative) Urine Blood (Negative) Urine WBC (0-5) /hpf Amorphous Sediment (None) /hpf Urine Bacteria (None) /hpf Urine Mucus (None) /hpf U Benzodiazepines Scrn (NotDetected) U Marijuana (THC) Screen (NotDetected) 11/27/21 11/27/21 11/27/21 Range/Units 10:51 11:51 12:09 WBC (3.8-10.6) k/uL Hct (34.0-46.0) % MCV (80.0-100.0) fL MCHC (31.0-37.0) g/dL Neutrophils # (1.3-7.7) k/uL Lymphocytes # (1.0-4.8) k/uL Monocytes # (0-1.0) k/uL ABG pH 6.93 L* (7.35-7.45) ABG pCO2 <15 L* (35-45) mmHg ABG pO2 138 H (83-108) mmHg ABG O2 Saturation 97.3 H (94-97) % VBG pH (7.31-7.41) VBG pCO2 (37-51) mmHg VBG HCO3 (24-28) mmol/L Sodium (137-145) mmol/L Potassium (3.5-5.1) mmol/L Chloride (98-107) mmol/L Carbon Dioxide (22-30) mmol/L BUN (7-17) mg/dL Creatinine (0.52-1.04) mg/dL Glucose (74-99) mg/dL POC Glucose (mg/dL) >600 H >600 H (75-99) mg/dL Hemoglobin A1c (0.0-6.0) % Osmolality (280-301) mosm/kg Plasma Lactic Acid Telly (0.7-2.0) mmol/L Calcium (8.4-10.2) mg/dL Phosphorus (2.5-4.5) mg/dL Magnesium (1.6-2.3) mg/dL Alkaline Phosphatase (38-126) U/L Creatine Kinase (30-135) U/L Total Protein (6.3-8.2) g/dL Vitamin B12 (200.0-944.0) pg/mL Urine Appearance (Clear) Urine Protein (Negative) Urine Glucose (UA) (Negative) Urine Ketones (Negative) Urine Blood (Negative) Urine WBC (0-5) /hpf Amorphous Sediment (None) /hpf Urine Bacteria (None) /hpf Urine Mucus (None) /hpf U Benzodiazepines Scrn (NotDetected) U Marijuana (THC) Screen (NotDetected) 11/27/21 11/27/21 11/27/21 Range/Units 12:44 13:06 13:36 WBC (3.8-10.6) k/uL Hct (34.0-46.0) % MCV (80.0-100.0) fL MCHC (31.0-37.0) g/dL Neutrophils # (1.3-7.7) k/uL Lymphocytes # (1.0-4.8) k/uL Monocytes # (0-1.0) k/uL ABG pH (7.35-7.45) ABG pCO2 (35-45) mmHg ABG pO2 (83-108) mmHg ABG O2 Saturation (94-97) % VBG pH (7.31-7.41) VBG pCO2 (37-51) mmHg VBG HCO3 (24-28) mmol/L Sodium 148 H (137-145) mmol/L Potassium (3.5-5.1) mmol/L Chloride 113 H (98-107) mmol/L Carbon Dioxide <5 L* (22-30) mmol/L BUN 25 H (7-17) mg/dL Creatinine 2.24 H (0.52-1.04) mg/dL Glucose (74-99) mg/dL POC Glucose (mg/dL) >600 H >600 H (75-99) mg/dL Hemoglobin A1c (0.0-6.0) % Osmolality (280-301) mosm/kg Plasma Lactic Acid Telly (0.7-2.0) mmol/L Calcium 10.3 H (8.4-10.2) mg/dL Phosphorus (2.5-4.5) mg/dL Magnesium (1.6-2.3) mg/dL Alkaline Phosphatase (38-126) U/L Creatine Kinase (30-135) U/L Total Protein (6.3-8.2) g/dL Vitamin B12 (200.0-944.0) pg/mL Urine Appearance (Clear) Urine Protein (Negative) Urine Glucose (UA) (Negative) Urine Ketones (Negative) Urine Blood (Negative) Urine WBC (0-5) /hpf Amorphous Sediment (None) /hpf Urine Bacteria (None) /hpf Urine Mucus (None) /hpf U Benzodiazepines Scrn (NotDetected) U Marijuana (THC) Screen (NotDetected) 11/27/21 11/27/21 11/27/21 Range/Units 14:00 15:06 15:56 WBC (3.8-10.6) k/uL Hct (34.0-46.0) % MCV (80.0-100.0) fL MCHC (31.0-37.0) g/dL Neutrophils # (1.3-7.7) k/uL Lymphocytes # (1.0-4.8) k/uL Monocytes # (0-1.0) k/uL ABG pH (7.35-7.45) ABG pCO2 (35-45) mmHg ABG pO2 (83-108) mmHg ABG O2 Saturation (94-97) % VBG pH (7.31-7.41) VBG pCO2 (37-51) mmHg VBG HCO3 (24-28) mmol/L Sodium (137-145) mmol/L Potassium (3.5-5.1) mmol/L Chloride (98-107) mmol/L Carbon Dioxide (22-30) mmol/L BUN (7-17) mg/dL Creatinine (0.52-1.04) mg/dL Glucose (74-99) mg/dL POC Glucose (mg/dL) 494 H 527 H (75-99) mg/dL Hemoglobin A1c (0.0-6.0) % Osmolality (280-301) mosm/kg Plasma Lactic Acid Telly 2.6 H* (0.7-2.0) mmol/L Calcium (8.4-10.2) mg/dL Phosphorus (2.5-4.5) mg/dL Magnesium (1.6-2.3) mg/dL Alkaline Phosphatase (38-126) U/L Creatine Kinase (30-135) U/L Total Protein (6.3-8.2) g/dL Vitamin B12 (200.0-944.0) pg/mL Urine Appearance (Clear) Urine Protein (Negative) Urine Glucose (UA) (Negative) Urine Ketones (Negative) Urine Blood (Negative) Urine WBC (0-5) /hpf Amorphous Sediment (None) /hpf Urine Bacteria (None) /hpf Urine Mucus (None) /hpf U Benzodiazepines Scrn (NotDetected) U Marijuana (THC) Screen (NotDetected) 11/27/21 11/27/21 11/27/21 Range/Units 16:08 16:08 16:24 WBC (3.8-10.6) k/uL Hct (34.0-46.0) % MCV (80.0-100.0) fL MCHC (31.0-37.0) g/dL Neutrophils # (1.3-7.7) k/uL Lymphocytes # (1.0-4.8) k/uL Monocytes # (0-1.0) k/uL ABG pH (7.35-7.45) ABG pCO2 (35-45) mmHg ABG pO2 (83-108) mmHg ABG O2 Saturation (94-97) % VBG pH (7.31-7.41) VBG pCO2 (37-51) mmHg VBG HCO3 (24-28) mmol/L Sodium 147 H (137-145) mmol/L Potassium (3.5-5.1) mmol/L Chloride 117 H (98-107) mmol/L Carbon Dioxide <5 L* (22-30) mmol/L BUN 27 H (7-17) mg/dL Creatinine 2.02 H (0.52-1.04) mg/dL Glucose 497 H (74-99) mg/dL POC Glucose (mg/dL) (75-99) mg/dL Hemoglobin A1c 13.7 H (0.0-6.0) % Osmolality (280-301) mosm/kg Plasma Lactic Acid Telly (0.7-2.0) mmol/L Calcium (8.4-10.2) mg/dL Phosphorus 1.6 L (2.5-4.5) mg/dL Magnesium (1.6-2.3) mg/dL Alkaline Phosphatase (38-126) U/L Creatine Kinase (30-135) U/L Total Protein (6.3-8.2) g/dL Vitamin B12 >2000.0 H (200.0-944.0) pg/mL Urine Appearance (Clear) Urine Protein (Negative) Urine Glucose (UA) (Negative) Urine Ketones (Negative) Urine Blood (Negative) Urine WBC (0-5) /hpf Amorphous Sediment (None) /hpf Urine Bacteria (None) /hpf Urine Mucus (None) /hpf U Benzodiazepines Scrn (NotDetected) U Marijuana (THC) Screen (NotDetected) 11/27/21 11/27/21 11/27/21 Range/Units 16:24 16:29 17:04 WBC (3.8-10.6) k/uL Hct (34.0-46.0) % MCV (80.0-100.0) fL MCHC (31.0-37.0) g/dL Neutrophils # (1.3-7.7) k/uL Lymphocytes # (1.0-4.8) k/uL Monocytes # (0-1.0) k/uL ABG pH (7.35-7.45) ABG pCO2 (35-45) mmHg ABG pO2 (83-108) mmHg ABG O2 Saturation (94-97) % VBG pH (7.31-7.41) VBG pCO2 (37-51) mmHg VBG HCO3 (24-28) mmol/L Sodium (137-145) mmol/L Potassium (3.5-5.1) mmol/L Chloride (98-107) mmol/L Carbon Dioxide (22-30) mmol/L BUN (7-17) mg/dL Creatinine (0.52-1.04) mg/dL Glucose (74-99) mg/dL POC Glucose (mg/dL) 425 H (75-99) mg/dL Hemoglobin A1c (0.0-6.0) % Osmolality (280-301) mosm/kg Plasma Lactic Acid Telly 2.3 H* (0.7-2.0) mmol/L Calcium (8.4-10.2) mg/dL Phosphorus (2.5-4.5) mg/dL Magnesium (1.6-2.3) mg/dL Alkaline Phosphatase (38-126) U/L Creatine Kinase (30-135) U/L Total Protein (6.3-8.2) g/dL Vitamin B12 (200.0-944.0) pg/mL Urine Appearance Cloudy H (Clear) Urine Protein 1+ H (Negative) Urine Glucose (UA) 4+ H (Negative) Urine Ketones 4+ H (Negative) Urine Blood Moderate H (Negative) Urine WBC 8 H (0-5) /hpf Amorphous Sediment Rare H (None) /hpf Urine Bacteria Occasional H (None) /hpf Urine Mucus Rare H (None) /hpf U Benzodiazepines Scrn Detected H (NotDetected) U Marijuana (THC) Screen Detected H (NotDetected) 11/27/21 11/27/21 11/27/21 Range/Units 18:10 19:00 20:15 WBC (3.8-10.6) k/uL Hct (34.0-46.0) % MCV (80.0-100.0) fL MCHC (31.0-37.0) g/dL Neutrophils # (1.3-7.7) k/uL Lymphocytes # (1.0-4.8) k/uL Monocytes # (0-1.0) k/uL ABG pH (7.35-7.45) ABG pCO2 (35-45) mmHg ABG pO2 (83-108) mmHg ABG O2 Saturation (94-97) % VBG pH (7.31-7.41) VBG pCO2 (37-51) mmHg VBG HCO3 (24-28) mmol/L Sodium (137-145) mmol/L Potassium (3.5-5.1) mmol/L Chloride (98-107) mmol/L Carbon Dioxide (22-30) mmol/L BUN (7-17) mg/dL Creatinine (0.52-1.04) mg/dL Glucose (74-99) mg/dL POC Glucose (mg/dL) 376 H 346 H 291 H (75-99) mg/dL Hemoglobin A1c (0.0-6.0) % Osmolality (280-301) mosm/kg Plasma Lactic Acid Telly (0.7-2.0) mmol/L Calcium (8.4-10.2) mg/dL Phosphorus (2.5-4.5) mg/dL Magnesium (1.6-2.3) mg/dL Alkaline Phosphatase (38-126) U/L Creatine Kinase (30-135) U/L Total Protein (6.3-8.2) g/dL Vitamin B12 (200.0-944.0) pg/mL Urine Appearance (Clear) Urine Protein (Negative) Urine Glucose (UA) (Negative) Urine Ketones (Negative) Urine Blood (Negative) Urine WBC (0-5) /hpf Amorphous Sediment (None) /hpf Urine Bacteria (None) /hpf Urine Mucus (None) /hpf U Benzodiazepines Scrn (NotDetected) U Marijuana (THC) Screen (NotDetected) 11/27/21 11/27/21 11/27/21 Range/Units 20:56 21:07 22:01 WBC (3.8-10.6) k/uL Hct (34.0-46.0) % MCV (80.0-100.0) fL MCHC (31.0-37.0) g/dL Neutrophils # (1.3-7.7) k/uL Lymphocytes # (1.0-4.8) k/uL Monocytes # (0-1.0) k/uL ABG pH (7.35-7.45) ABG pCO2 (35-45) mmHg ABG pO2 (83-108) mmHg ABG O2 Saturation (94-97) % VBG pH (7.31-7.41) VBG pCO2 (37-51) mmHg VBG HCO3 (24-28) mmol/L Sodium 147 H (137-145) mmol/L Potassium (3.5-5.1) mmol/L Chloride 122 H (98-107) mmol/L Carbon Dioxide 12 L (22-30) mmol/L BUN 29 H (7-17) mg/dL Creatinine 1.56 H (0.52-1.04) mg/dL Glucose 255 H (74-99) mg/dL POC Glucose (mg/dL) 288 H 291 H (75-99) mg/dL Hemoglobin A1c (0.0-6.0) % Osmolality (280-301) mosm/kg Plasma Lactic Acid Telly (0.7-2.0) mmol/L Calcium (8.4-10.2) mg/dL Phosphorus 1.1 L (2.5-4.5) mg/dL Magnesium (1.6-2.3) mg/dL Alkaline Phosphatase (38-126) U/L Creatine Kinase (30-135) U/L Total Protein (6.3-8.2) g/dL Vitamin B12 (200.0-944.0) pg/mL Urine Appearance (Clear) Urine Protein (Negative) Urine Glucose (UA) (Negative) Urine Ketones (Negative) Urine Blood (Negative) Urine WBC (0-5) /hpf Amorphous Sediment (None) /hpf Urine Bacteria (None) /hpf Urine Mucus (None) /hpf U Benzodiazepines Scrn (NotDetected) U Marijuana (THC) Screen (NotDetected) 11/27/21 11/28/21 11/28/21 Range/Units 23:01 00:02 01:00 WBC (3.8-10.6) k/uL Hct (34.0-46.0) % MCV (80.0-100.0) fL MCHC (31.0-37.0) g/dL Neutrophils # (1.3-7.7) k/uL Lymphocytes # (1.0-4.8) k/uL Monocytes # (0-1.0) k/uL ABG pH (7.35-7.45) ABG pCO2 (35-45) mmHg ABG pO2 (83-108) mmHg ABG O2 Saturation (94-97) % VBG pH (7.31-7.41) VBG pCO2 (37-51) mmHg VBG HCO3 (24-28) mmol/L Sodium (137-145) mmol/L Potassium (3.5-5.1) mmol/L Chloride (98-107) mmol/L Carbon Dioxide (22-30) mmol/L BUN (7-17) mg/dL Creatinine (0.52-1.04) mg/dL Glucose (74-99) mg/dL POC Glucose (mg/dL) 243 H 208 H 190 H (75-99) mg/dL Hemoglobin A1c (0.0-6.0) % Osmolality (280-301) mosm/kg Plasma Lactic Acid Telly (0.7-2.0) mmol/L Calcium (8.4-10.2) mg/dL Phosphorus (2.5-4.5) mg/dL Magnesium (1.6-2.3) mg/dL Alkaline Phosphatase (38-126) U/L Creatine Kinase (30-135) U/L Total Protein (6.3-8.2) g/dL Vitamin B12 (200.0-944.0) pg/mL Urine Appearance (Clear) Urine Protein (Negative) Urine Glucose (UA) (Negative) Urine Ketones (Negative) Urine Blood (Negative) Urine WBC (0-5) /hpf Amorphous Sediment (None) /hpf Urine Bacteria (None) /hpf Urine Mucus (None) /hpf U Benzodiazepines Scrn (NotDetected) U Marijuana (THC) Screen (NotDetected) 11/28/21 11/28/21 11/28/21 Range/Units 01:09 01:59 03:03 WBC (3.8-10.6) k/uL Hct (34.0-46.0) % MCV (80.0-100.0) fL MCHC (31.0-37.0) g/dL Neutrophils # (1.3-7.7) k/uL Lymphocytes # (1.0-4.8) k/uL Monocytes # (0-1.0) k/uL ABG pH (7.35-7.45) ABG pCO2 (35-45) mmHg ABG pO2 (83-108) mmHg ABG O2 Saturation (94-97) % VBG pH (7.31-7.41) VBG pCO2 (37-51) mmHg VBG HCO3 (24-28) mmol/L Sodium 147 H (137-145) mmol/L Potassium 3.3 L (3.5-5.1) mmol/L Chloride 124 H (98-107) mmol/L Carbon Dioxide 16 L (22-30) mmol/L BUN 30 H (7-17) mg/dL Creatinine 1.55 H (0.52-1.04) mg/dL Glucose 181 H (74-99) mg/dL POC Glucose (mg/dL) 171 H 114 H (75-99) mg/dL Hemoglobin A1c (0.0-6.0) % Osmolality (280-301) mosm/kg Plasma Lactic Acid Telly (0.7-2.0) mmol/L Calcium (8.4-10.2) mg/dL Phosphorus (2.5-4.5) mg/dL Magnesium (1.6-2.3) mg/dL Alkaline Phosphatase (38-126) U/L Creatine Kinase (30-135) U/L Total Protein (6.3-8.2) g/dL Vitamin B12 (200.0-944.0) pg/mL Urine Appearance (Clear) Urine Protein (Negative) Urine Glucose (UA) (Negative) Urine Ketones (Negative) Urine Blood (Negative) Urine WBC (0-5) /hpf Amorphous Sediment (None) /hpf Urine Bacteria (None) /hpf Urine Mucus (None) /hpf U Benzodiazepines Scrn (NotDetected) U Marijuana (THC) Screen (NotDetected) 11/28/21 11/28/21 11/28/21 Range/Units 05:39 05:39 05:44 WBC 24.7 H (3.8-10.6) k/uL Hct (34.0-46.0) % MCV (80.0-100.0) fL MCHC (31.0-37.0) g/dL Neutrophils # 22.1 H (1.3-7.7) k/uL Lymphocytes # 0.9 L (1.0-4.8) k/uL Monocytes # 1.1 H (0-1.0) k/uL ABG pH (7.35-7.45) ABG pCO2 (35-45) mmHg ABG pO2 (83-108) mmHg ABG O2 Saturation (94-97) % VBG pH (7.31-7.41) VBG pCO2 (37-51) mmHg VBG HCO3 (24-28) mmol/L Sodium 150 H (137-145) mmol/L Potassium (3.5-5.1) mmol/L Chloride 126 H (98-107) mmol/L Carbon Dioxide 12 L (22-30) mmol/L BUN 29 H (7-17) mg/dL Creatinine 1.55 H (0.52-1.04) mg/dL Glucose 127 H (74-99) mg/dL POC Glucose (mg/dL) 141 H (75-99) mg/dL Hemoglobin A1c (0.0-6.0) % Osmolality (280-301) mosm/kg Plasma Lactic Acid Telly (0.7-2.0) mmol/L Calcium (8.4-10.2) mg/dL Phosphorus 1.2 L (2.5-4.5) mg/dL Magnesium (1.6-2.3) mg/dL Alkaline Phosphatase (38-126) U/L Creatine Kinase (30-135) U/L Total Protein (6.3-8.2) g/dL Vitamin B12 (200.0-944.0) pg/mL Urine Appearance (Clear) Urine Protein (Negative) Urine Glucose (UA) (Negative) Urine Ketones (Negative) Urine Blood (Negative) Urine WBC (0-5) /hpf Amorphous Sediment (None) /hpf Urine Bacteria (None) /hpf Urine Mucus (None) /hpf U Benzodiazepines Scrn (NotDetected) U Marijuana (THC) Screen (NotDetected) 11/28/21 11/28/21 11/28/21 Range/Units 06:51 07:58 09:18 WBC (3.8-10.6) k/uL Hct (34.0-46.0) % MCV (80.0-100.0) fL MCHC (31.0-37.0) g/dL Neutrophils # (1.3-7.7) k/uL Lymphocytes # (1.0-4.8) k/uL Monocytes # (0-1.0) k/uL ABG pH (7.35-7.45) ABG pCO2 (35-45) mmHg ABG pO2 (83-108) mmHg ABG O2 Saturation (94-97) % VBG pH (7.31-7.41) VBG pCO2 (37-51) mmHg VBG HCO3 (24-28) mmol/L Sodium (137-145) mmol/L Potassium (3.5-5.1) mmol/L Chloride (98-107) mmol/L Carbon Dioxide (22-30) mmol/L BUN (7-17) mg/dL Creatinine (0.52-1.04) mg/dL Glucose (74-99) mg/dL POC Glucose (mg/dL) 169 H 129 H 146 H (75-99) mg/dL Hemoglobin A1c (0.0-6.0) % Osmolality (280-301) mosm/kg Plasma Lactic Acid Telly (0.7-2.0) mmol/L Calcium (8.4-10.2) mg/dL Phosphorus (2.5-4.5) mg/dL Magnesium (1.6-2.3) mg/dL Alkaline Phosphatase (38-126) U/L Creatine Kinase (30-135) U/L Total Protein (6.3-8.2) g/dL Vitamin B12 (200.0-944.0) pg/mL Urine Appearance (Clear) Urine Protein (Negative) Urine Glucose (UA) (Negative) Urine Ketones (Negative) Urine Blood (Negative) Urine WBC (0-5) /hpf Amorphous Sediment (None) /hpf Urine Bacteria (None) /hpf Urine Mucus (None) /hpf U Benzodiazepines Scrn (NotDetected) U Marijuana (THC) Screen (NotDetected) Assessment and Plan Assessment: 1 New onset diabetes with acute diabetic ketoacidosis. Recovered 2 Left lower lobe pneumonia, possible aspiration considering her clinical history. [address] of the brain, questionable artifact versus ischemic infarct in the right parietal lobe. 4 History of bipolar disorder. 5 Anion gap metabolic acidosis secondary to acute DKA. 6 Acute kidney injury secondary to DKA, suspect pre-renal azotemia. 7 Leukocytosis secondary to pneumonia Plan: The patient was seen and evaluated Improved mentally today compared to yesterday Glucose levels have improved Continue with the DKA protocol Advanced to clear liquid diet today Continue to monitor her closely here in the ICU We will continue to follow I have personally seen and examined the patient, performed the documentation and the assessment and plan as written. Number of minutes spent on the visit: 10.
[2021-11-28 10:24] LABS: Calcium 9.1 mg/dL (8.4-10.2)
[2021-11-28] MEDS: POTASSIUM PHOSPHATE 10 MMOL in SODIUM CHLORIDE 0.9% 250 ML IV SCH ×3 (10:24→17:37)
[2021-11-28 10:26] LABS: Potassium 5.5 mmol/L (3.5-5.1)
[2021-11-28] MEDS: SODIUM CHLORIDE 0.45% 1,000 ML IV SCH (11:05)
[2021-11-28 11:12] LABS: Chol/HDL Ratio 4.81 Ratio; LDL Cholesterol,Calculated 119.5 mg/dL (0.0-131.0)
[2021-11-28] MEDS: ONDANSETRON 4 MG/2 ML VIAL IVP PRN ×2 (11:12→16:51)
[2021-11-28 12:54] LABS: Glucose,Whole Blood 234 mg/dL (75-99)
[2021-11-28] MEDS: INSULIN ASPART (NovoLOG) 100 UNIT/ML VIAL SQ SCH ×3 (12:55→21:00)
--- NOTE | 2021-11-28 14:39 | EEG ---
ELECTROENCEPHALOGRAM REPORT DATE OF SERVICE: 11/28/2021. PREAMBLE: This is a 41-year-old female with altered mental status. EEG FINDINGS: This is a 21-channel digital EEG recorded with video competent, utilizing 10/20 international system with referential and bipolar montages. Background consists of moderately well developed but not very well regulated mixed frequencies of 6 hertz theta intermixed with moderate to high amplitude of 1 to 2 hertz delta activity seen in bihemispheric region. Background does not seem to be reactive to eye opening or closing. Hyperventilation and photic stimulation were not performed. Different stages of sleep were not seen. No focal or generalized epileptiform activity was seen. IMPRESSION: This is an abnormal EEG due to background slowing of moderate degree. This is suggestive of generalized cerebral dysfunction as can be seen with toxic metabolic encephalopathy or related to diffuse structural brain abnormality. Clinical correlation is recommended. No epileptiform activity was seen. MMODL / IJN: [id number] / MTDD
--- NOTE | 2021-11-28 14:48 | MR ---
EXAMINATION TYPE: MR brain wo con DATE OF EXAM: 11/28/2021 2:12 PM COMPARISON: CT brain of 11/27/2021 and prior MRI of the brain 03/13/2015 HISTORY: AMS, slurred speech, abnormal CT head Multiplanar and multispin-echo imaging of the brain was performed . The ventricles, basal cisterns and sulci overlying the cerebral convexities are within normal limits. There is no evidence for midline shift or mass effect. Acute intracranial hemorrhage or extra-axial collection is not evident. The brain parenchyma reveals no abnormal increased signal. No acute edema is identified. The paranasal sinuses and mastoid air cells are well-aerated. IMPRESSION: Unremarkable MRI of the brain.
[2021-11-28 16:46] LABS: Glucose,Whole Blood 296 mg/dL (75-99)
[2021-11-28 20:28] LABS: Glucose,Whole Blood 265 mg/dL (75-99)
--- NOTE | 2021-11-28 20:45 | P.PN ---
Subjective 41-year-old female came in altered mental status patient is unresponsive at this time unable to get any history from the patient patient that was found by the daughter in the driveway unresponsive. Patient is found to have highly elevated blood sugars of 11,000 with an anion gap of around 36. Patient is not a diabetic. Patient usually can drive although patient does have some hemorrhoidal issues including ADHD. Patient is subsequently admitted to ICU. Patient has lactic acid of around 5.8 chest x-ray was read as possibly of pneumonia because of which patient was started on Rocephin and maybe some aspiration. Unable to look at the X-ray images at this time, CT of the brain showed an area of low attenuation involving the temporal lobe on the right side probably artifact. Subjective: Resume the care of the patient today 11/28/2021 Patient remains in the ICU confused. Father at bedside. She is awake and alert, she does not follow most of the simple commands. She could not tell the place except partially but she is disoriented to person and time. She looks encephalopathic. However there is no localization or asymmetry. She moves extremities equally. Cranial nerves are grossly intact. She's been followed closely by neurology service. EEG today she is negative for epileptiform discharges showing severe toxic encephalopathy. MRI of the brain is negative. Chest x-ray showing bilateral pneumonia and patient currently covered with Zithromax and ceftriaxone and follow-up by pulmonary service closely. Her DKA is improving and switched to insulin sliding scale and diabetic diet Objective - Vital Signs Vital signs: Vital Signs Temp 97.8 F 11/28/21 08:00 Pulse 77 11/28/21 11:00 Resp 25 H 11/28/21 11:00 BP 121/64 11/28/21 11:00 Pulse Ox 98 11/28/21 11:00 Intake & Output 11/27/21 11/28/21 11/28/21 18:59 06:59 18:59 Intake Total 7929.576 2965.615 632.693 Output Total 1320 515 125 Balance 571.268 4166.615 507.693 Weight 63.503 kg 72.3 kg Intake: IV 1760 2610 620 Azithromycin 500 mg In 250 250 Sodium Chloride 0.9% 250 ml @ 250 mls/hr IVPB DAILY [facility] Rx#:[id number] D5-0.45% NaCl with KCl 1650 300 20Meq/l 1,000 ml @ 150 mls/hr IV .Q6H40M [facility] Rx# :[id number] Potassium Chloride 10 meq 300 In Water For Injection 1 100ml.bag @ 100 mls/hr IVPB Q1HR [facility] Rx#: [id number] Potassium Phosphate 10 250 mmol In Sodium Chloride 0 .9% 250 ml @ 125 mls/hr IV Q2H [facility] Rx#:[id number] Sodium Chloride 0.9% 1, 1400 400 000 ml @ 200 mls/hr IV . Q5H [facility] Rx#:[id number] Sodium Chloride 0.9% 1000 60 10 20 ml @ 10 mls/hr IV cefTRIAXone 1 gm In 50 50 Sodium Chloride 0.9% 50 ml @ 100 mls/hr IVPB Q24HR [facility] Rx#:[id number] Intake, IV Titration 71.087 130.615 12.693 Amount Insulin Regular 100 unit 71.087 130.615 12.693 In Sodium Chloride 0.9% 100 ml @ 0.1 UNITS/KG/HR 6.414 mls/hr IV .[id number] [facility] Rx#:[id number] Output: Urine 1320 515 125 Other: Voiding Method Indwelling Catheter Indwelling Catheter - Exam -GENERAL: The patient is alert and oriented x [address], not in any acute distress. Well developed, well nourished. HEENT: Pupils are round and equally reacting to light. EOMI. No scleral icterus. No conjunctival pallor. Normocephalic, atraumatic. No pharyngeal erythema. No thyromegaly. CARDIOVASCULAR: S1 and S2 present. No murmurs, rubs, or gallops. PULMONARY: Chest is clear to auscultation, no wheezing or crackles. ABDOMEN: Soft, nontender, nondistended, normoactive bowel sounds. No palpable organomegaly. MUSCULOSKELETAL: No joint swelling or deformity. EXTREMITIES: No cyanosis, clubbing, or pedal edema. NEUROLOGICAL: Gross neurological examination did not reveal any focal deficits. SKIN: No rashes. no petechiae. - Labs CBC & Chem 7: 11/28/21 05:39 11/28/21 14:56 Labs: Abnormal Lab Results - Last 24 Hours (Table) 11/27/21 11/27/21 11/27/21 Range/Units 11:51 12:09 12:44 WBC (3.8-10.6) k/uL Neutrophils # (1.3-7.7) k/uL Lymphocytes # (1.0-4.8) k/uL Monocytes # (0-1.0) k/uL Sodium (137-145) mmol/L Potassium (3.5-5.1) mmol/L Chloride (98-107) mmol/L Carbon Dioxide (22-30) mmol/L BUN (7-17) mg/dL Creatinine (0.52-1.04) mg/dL Glucose (74-99) mg/dL POC Glucose (mg/dL) >600 H >600 H >600 H (75-99) mg/dL Hemoglobin A1c (0.0-6.0) % Plasma Lactic Acid Telly (0.7-2.0) mmol/L Calcium (8.4-10.2) mg/dL Phosphorus (2.5-4.5) mg/dL HDL Cholesterol (40.00-60.00) mg/dL Vitamin B12 (200.0-944.0) pg/mL Urine Appearance (Clear) Urine Protein (Negative) Urine Glucose (UA) (Negative) Urine Ketones (Negative) Urine Blood (Negative) Urine WBC (0-5) /hpf Amorphous Sediment (None) /hpf Urine Bacteria (None) /hpf Urine Mucus (None) /hpf U Benzodiazepines Scrn (NotDetected) U Marijuana (THC) Screen (NotDetected) 11/27/21 11/27/21 11/27/21 Range/Units 13:06 13:36 14:00 WBC (3.8-10.6) k/uL Neutrophils # (1.3-7.7) k/uL Lymphocytes # (1.0-4.8) k/uL Monocytes # (0-1.0) k/uL Sodium 148 H (137-145) mmol/L Potassium (3.5-5.1) mmol/L Chloride 113 H (98-107) mmol/L Carbon Dioxide <5 L* (22-30) mmol/L BUN 25 H (7-17) mg/dL Creatinine 2.24 H (0.52-1.04) mg/dL Glucose (74-99) mg/dL POC Glucose (mg/dL) >600 H (75-99) mg/dL Hemoglobin A1c (0.0-6.0) % Plasma Lactic Acid Telly 2.6 H* (0.7-2.0) mmol/L Calcium 10.3 H (8.4-10.2) mg/dL Phosphorus (2.5-4.5) mg/dL HDL Cholesterol (40.00-60.00) mg/dL Vitamin B12 (200.0-944.0) pg/mL Urine Appearance (Clear) Urine Protein (Negative) Urine Glucose (UA) (Negative) Urine Ketones (Negative) Urine Blood (Negative) Urine WBC (0-5) /hpf Amorphous Sediment (None) /hpf Urine Bacteria (None) /hpf Urine Mucus (None) /hpf U Benzodiazepines Scrn (NotDetected) U Marijuana (THC) Screen (NotDetected) 11/27/21 11/27/21 11/27/21 Range/Units 15:06 15:56 16:08 WBC (3.8-10.6) k/uL Neutrophils # (1.3-7.7) k/uL Lymphocytes # (1.0-4.8) k/uL Monocytes # (0-1.0) k/uL Sodium (137-145) mmol/L Potassium (3.5-5.1) mmol/L Chloride (98-107) mmol/L Carbon Dioxide (22-30) mmol/L BUN (7-17) mg/dL Creatinine (0.52-1.04) mg/dL Glucose (74-99) mg/dL POC Glucose (mg/dL) 494 H 527 H (75-99) mg/dL Hemoglobin A1c 13.7 H (0.0-6.0) % Plasma Lactic Acid Telly (0.7-2.0) mmol/L Calcium (8.4-10.2) mg/dL Phosphorus (2.5-4.5) mg/dL HDL Cholesterol (40.00-60.00) mg/dL Vitamin B12 (200.0-944.0) pg/mL Urine Appearance (Clear) Urine Protein (Negative) Urine Glucose (UA) (Negative) Urine Ketones (Negative) Urine Blood (Negative) Urine WBC (0-5) /hpf Amorphous Sediment (None) /hpf Urine Bacteria (None) /hpf Urine Mucus (None) /hpf U Benzodiazepines Scrn (NotDetected) U Marijuana (THC) Screen (NotDetected) 11/27/21 11/27/21 11/27/21 Range/Units 16:08 16:24 16:24 WBC (3.8-10.6) k/uL Neutrophils # (1.3-7.7) k/uL Lymphocytes # (1.0-4.8) k/uL Monocytes # (0-1.0) k/uL Sodium 147 H (137-145) mmol/L Potassium (3.5-5.1) mmol/L Chloride 117 H (98-107) mmol/L Carbon Dioxide <5 L* (22-30) mmol/L BUN 27 H (7-17) mg/dL Creatinine 2.02 H (0.52-1.04) mg/dL Glucose 497 H (74-99) mg/dL POC Glucose (mg/dL) (75-99) mg/dL Hemoglobin A1c (0.0-6.0) % Plasma Lactic Acid Telly 2.3 H* (0.7-2.0) mmol/L Calcium (8.4-10.2) mg/dL Phosphorus 1.6 L (2.5-4.5) mg/dL HDL Cholesterol (40.00-60.00) mg/dL Vitamin B12 >2000.0 H (200.0-944.0) pg/mL Urine Appearance (Clear) Urine Protein (Negative) Urine Glucose (UA) (Negative) Urine Ketones (Negative) Urine Blood (Negative) Urine WBC (0-5) /hpf Amorphous Sediment (None) /hpf Urine Bacteria (None) /hpf Urine Mucus (None) /hpf U Benzodiazepines Scrn (NotDetected) U Marijuana (THC) Screen (NotDetected) 11/27/21 11/27/21 11/27/21 Range/Units 16:29 17:04 18:10 WBC (3.8-10.6) k/uL Neutrophils # (1.3-7.7) k/uL Lymphocytes # (1.0-4.8) k/uL Monocytes # (0-1.0) k/uL Sodium (137-145) mmol/L Potassium (3.5-5.1) mmol/L Chloride (98-107) mmol/L Carbon Dioxide (22-30) mmol/L BUN (7-17) mg/dL Creatinine (0.52-1.04) mg/dL Glucose (74-99) mg/dL POC Glucose (mg/dL) 425 H 376 H (75-99) mg/dL Hemoglobin A1c (0.0-6.0) % Plasma Lactic Acid Telly (0.7-2.0) mmol/L Calcium (8.4-10.2) mg/dL Phosphorus (2.5-4.5) mg/dL HDL Cholesterol (40.00-60.00) mg/dL Vitamin B12 (200.0-944.0) pg/mL Urine Appearance Cloudy H (Clear) Urine Protein 1+ H (Negative) Urine Glucose (UA) 4+ H (Negative) Urine Ketones 4+ H (Negative) Urine Blood Moderate H (Negative) Urine WBC 8 H (0-5) /hpf Amorphous Sediment Rare H (None) /hpf Urine Bacteria Occasional H (None) /hpf Urine Mucus Rare H (None) /hpf U Benzodiazepines Scrn Detected H (NotDetected) U Marijuana (THC) Screen Detected H (NotDetected) 11/27/21 11/27/21 11/27/21 Range/Units 19:00 20:15 20:56 WBC (3.8-10.6) k/uL Neutrophils # (1.3-7.7) k/uL Lymphocytes # (1.0-4.8) k/uL Monocytes # (0-1.0) k/uL Sodium 147 H (137-145) mmol/L Potassium (3.5-5.1) mmol/L Chloride 122 H (98-107) mmol/L Carbon Dioxide 12 L (22-30) mmol/L BUN 29 H (7-17) mg/dL Creatinine 1.56 H (0.52-1.04) mg/dL Glucose 255 H (74-99) mg/dL POC Glucose (mg/dL) 346 H 291 H (75-99) mg/dL Hemoglobin A1c (0.0-6.0) % Plasma Lactic Acid Telly (0.7-2.0) mmol/L Calcium (8.4-10.2) mg/dL Phosphorus 1.1 L (2.5-4.5) mg/dL HDL Cholesterol (40.00-60.00) mg/dL Vitamin B12 (200.0-944.0) pg/mL Urine Appearance (Clear) Urine Protein (Negative) Urine Glucose (UA) (Negative) Urine Ketones (Negative) Urine Blood (Negative) Urine WBC (0-5) /hpf Amorphous Sediment (None) /hpf Urine Bacteria (None) /hpf Urine Mucus (None) /hpf U Benzodiazepines Scrn (NotDetected) U Marijuana (THC) Screen (NotDetected) 11/27/21 11/27/21 11/27/21 Range/Units 21:07 22:01 23:01 WBC (3.8-10.6) k/uL Neutrophils # (1.3-7.7) k/uL Lymphocytes # (1.0-4.8) k/uL Monocytes # (0-1.0) k/uL Sodium (137-145) mmol/L Potassium (3.5-5.1) mmol/L Chloride (98-107) mmol/L Carbon Dioxide (22-30) mmol/L BUN (7-17) mg/dL Creatinine (0.52-1.04) mg/dL Glucose (74-99) mg/dL POC Glucose (mg/dL) 288 H 291 H 243 H (75-99) mg/dL Hemoglobin A1c (0.0-6.0) % Plasma Lactic Acid Telly (0.7-2.0) mmol/L Calcium (8.4-10.2) mg/dL Phosphorus (2.5-4.5) mg/dL HDL Cholesterol (40.00-60.00) mg/dL Vitamin B12 (200.0-944.0) pg/mL Urine Appearance (Clear) Urine Protein (Negative) Urine Glucose (UA) (Negative) Urine Ketones (Negative) Urine Blood (Negative) Urine WBC (0-5) /hpf Amorphous Sediment (None) /hpf Urine Bacteria (None) /hpf Urine Mucus (None) /hpf U Benzodiazepines Scrn (NotDetected) U Marijuana (THC) Screen (NotDetected) 11/28/21 11/28/21 11/28/21 Range/Units 00:02 01:00 01:09 WBC (3.8-10.6) k/uL Neutrophils # (1.3-7.7) k/uL Lymphocytes # (1.0-4.8) k/uL Monocytes # (0-1.0) k/uL Sodium 147 H (137-145) mmol/L Potassium 3.3 L (3.5-5.1) mmol/L Chloride 124 H (98-107) mmol/L Carbon Dioxide 16 L (22-30) mmol/L BUN 30 H (7-17) mg/dL Creatinine 1.55 H (0.52-1.04) mg/dL Glucose 181 H (74-99) mg/dL POC Glucose (mg/dL) 208 H 190 H (75-99) mg/dL Hemoglobin A1c (0.0-6.0) % Plasma Lactic Acid Telly (0.7-2.0) mmol/L Calcium (8.4-10.2) mg/dL Phosphorus (2.5-4.5) mg/dL HDL Cholesterol (40.00-60.00) mg/dL Vitamin B12 (200.0-944.0) pg/mL Urine Appearance (Clear) Urine Protein (Negative) Urine Glucose (UA) (Negative) Urine Ketones (Negative) Urine Blood (Negative) Urine WBC (0-5) /hpf Amorphous Sediment (None) /hpf Urine Bacteria (None) /hpf Urine Mucus (None) /hpf U Benzodiazepines Scrn (NotDetected) U Marijuana (THC) Screen (NotDetected) 11/28/21 11/28/21 11/28/21 Range/Units 01:59 03:03 05:39 WBC 24.7 H (3.8-10.6) k/uL Neutrophils # 22.1 H (1.3-7.7) k/uL Lymphocytes # 0.9 L (1.0-4.8) k/uL Monocytes # 1.1 H (0-1.0) k/uL Sodium (137-145) mmol/L Potassium (3.5-5.1) mmol/L Chloride (98-107) mmol/L Carbon Dioxide (22-30) mmol/L BUN (7-17) mg/dL Creatinine (0.52-1.04) mg/dL Glucose (74-99) mg/dL POC Glucose (mg/dL) 171 H 114 H (75-99) mg/dL Hemoglobin A1c (0.0-6.0) % Plasma Lactic Acid Telly (0.7-2.0) mmol/L Calcium (8.4-10.2) mg/dL Phosphorus (2.5-4.5) mg/dL HDL Cholesterol (40.00-60.00) mg/dL Vitamin B12 (200.0-944.0) pg/mL Urine Appearance (Clear) Urine Protein (Negative) Urine Glucose (UA) (Negative) Urine Ketones (Negative) Urine Blood (Negative) Urine WBC (0-5) /hpf Amorphous Sediment (None) /hpf Urine Bacteria (None) /hpf Urine Mucus (None) /hpf U Benzodiazepines Scrn (NotDetected) U Marijuana (THC) Screen (NotDetected) 11/28/21 11/28/21 11/28/21 Range/Units 05:39 05:44 06:51 WBC (3.8-10.6) k/uL Neutrophils # (1.3-7.7) k/uL Lymphocytes # (1.0-4.8) k/uL Monocytes # (0-1.0) k/uL Sodium 150 H (137-145) mmol/L Potassium (3.5-5.1) mmol/L Chloride 126 H (98-107) mmol/L Carbon Dioxide 12 L (22-30) mmol/L BUN 29 H (7-17) mg/dL Creatinine 1.55 H (0.52-1.04) mg/dL Glucose 127 H (74-99) mg/dL POC Glucose (mg/dL) 141 H 169 H (75-99) mg/dL Hemoglobin A1c (0.0-6.0) % Plasma Lactic Acid Telly (0.7-2.0) mmol/L Calcium (8.4-10.2) mg/dL Phosphorus 1.2 L (2.5-4.5) mg/dL HDL Cholesterol 38.50 L (40.00-60.00) mg/dL Vitamin B12 (200.0-944.0) pg/mL Urine Appearance (Clear) Urine Protein (Negative) Urine Glucose (UA) (Negative) Urine Ketones (Negative) Urine Blood (Negative) Urine WBC (0-5) /hpf Amorphous Sediment (None) /hpf Urine Bacteria (None) /hpf Urine Mucus (None) /hpf U Benzodiazepines Scrn (NotDetected) U Marijuana (THC) Screen (NotDetected) 11/28/21 11/28/2122 Range/Units 07:58 09:18 09:51 WBC (3.8-10.6) k/uL Neutrophils # (1.3-7.7) k/uL Lymphocytes # (1.0-4.8) k/uL Monocytes # (0-1.0) k/uL Sodium 148 H (137-145) mmol/L Potassium 5.5 H (3.5-5.1) mmol/L Chloride 126 H (98-107) mmol/L Carbon Dioxide 13 L (22-30) mmol/L BUN 28 H (7-17) mg/dL Creatinine 1.58 H (0.52-1.04) mg/dL Glucose 145 H (74-99) mg/dL POC Glucose (mg/dL) 129 H 146 H (75-99) mg/dL Hemoglobin A1c (0.0-6.0) % Plasma Lactic Acid Telly (0.7-2.0) mmol/L Calcium (8.4-10.2) mg/dL Phosphorus (2.5-4.5) mg/dL HDL Cholesterol (40.00-60.00) mg/dL Vitamin B12 (200.0-944.0) pg/mL Urine Appearance (Clear) Urine Protein (Negative) Urine Glucose (UA) (Negative) Urine Ketones (Negative) Urine Blood (Negative) Urine WBC (0-5) /hpf Amorphous Sediment (None) /hpf Urine Bacteria (None) /hpf Urine Mucus (None) /hpf U Benzodiazepines Scrn (NotDetected) U Marijuana (THC) Screen (NotDetected) Assessment and Plan Assessment: - Altered mental status. Secondary to toxic/metabolic encephalopathy. Neurologist office on the case - New-onset type 2 diabetes mellitus with the diabetic ketoacidosis/resolved. Continue with insulin sliding scale and diabetic diet - Bilateral pneumonia, community-acquired. Continue with ceftriaxone and Zithromax. Pulmonary consult. - ARPIT on CKD. Creatinine improving - History of bipolar, follow-up as an outpatient ion next and have an acute renal failure related azotemia secondary to dehy dration from a hyperosmolar state and hyperglycemic state. DVT prophylaxis: Subcutaneous heparin GI prophylaxis: Protonix Prognosis guarded
[2021-11-28 21:13] LABS: Phosphorus 3.1 mg/dL (2.5-4.5); Potassium 4.1 mmol/L (3.5-5.1)
[2021-11-29] MEDS: SODIUM CHLORIDE 0.45% 1,000 ML IV SCH ×2 (01:34→08:13)
[2021-11-29 01:40] LABS: Glucose,Whole Blood 337 mg/dL (75-99)
[2021-11-29] MEDS: INSULIN ASPART (NovoLOG) 100 UNIT/ML VIAL SQ SCH ×5 (01:42→21:42)
[2021-11-29 06:30] LABS: Glucose,Whole Blood 225 mg/dL (75-99)
[2021-11-29] MEDS: ONDANSETRON 4 MG/2 ML VIAL IVP PRN (07:15)
[2021-11-29] MEDS: AZITHROMYCIN 500 MG in SODIUM CHLORIDE 0.9% 250 ML IVPB SCH (08:12)
[2021-11-29] MEDS: HEPARIN SODIUM,PORCINE/PF 5,000 UNIT/0.5 ML SYRINGE SQ SCH ×2 (08:13→21:42)
[2021-11-29] MEDS: PANTOPRAZOLE 40 MG/10 ML VIAL IVP SCH (08:13)
[2021-11-29 08:17] LABS: Basophils % (A) 0 %; Eosinophils % (A) 0 %; HCT 36.5 % (34.0-46.0); HGB 11.2 gm/dL (11.4-16.0); Lymphocytes # (A) 1.5 k/uL (1.0-4.8); Lymphocytes % (A) 9 %; MCH 30.1 pg (25.0-35.0); MCHC 30.8 g/dL (31.0-37.0); MCV 97.9 fL (80.0-100.0); Mean Platelet Volume 9.7; Monocytes # (A) 0.6 k/uL (0-1.0); Monocytes % (A) 4 %; Neutrophils # (A) 14.2 k/uL (1.3-7.7); Neutrophils % (A) 86 %; Platelet Count 265 k/uL (150-450); RBC 3.73 m/uL (3.80-5.40); RDW 12.9 % (11.5-15.5); WBC 16.6 k/uL (3.8-10.6)
[2021-11-29 08:31] LABS: Calcium 9.1 mg/dL (8.4-10.2); Phosphorus 3.8 mg/dL (2.5-4.5); Potassium 3.6 mmol/L (3.5-5.1)
[2021-11-29] MEDS ORDERED: DEXTROSE 5% IN WATER 1,000 ML IV ONE (08:41)
--- NOTE | 2021-11-29 08:49 | P.PN ---
Subjective Progress Note Date: 11/28/21 Patient was seen for a follow-up. Patient's mother was also present today. Patient is fully alert and awake. Patient's mother believes that she is slightly forgetful, sometimes stops speaking middle of the sentence. I think it is still related to mild residual encephalopathy. Hopefully it will improve with time. Patient smiling, very appropriate. Objective - Vital Signs Vital signs: Vital Signs Temp 98.6 F 11/29/21 08:00 Pulse 73 11/29/21 08:00 Resp 18 11/29/21 08:00 BP 126/66 11/29/21 08:00 Pulse Ox 97 11/29/21 08:00 Intake & Output 11/28/21 11/29/21 11/29/21 18:59 06:59 18:59 Intake Total 2124.326 975 375 Output Total 865 935 Balance 1259.326 40 375 Weight 72.3 kg 75.6 kg Intake: IV 1270 300 Azithromycin 500 mg In 250 250 Sodium Chloride 0.9% 250 ml @ 250 mls/hr IVPB DAILY [facility] Rx#:[id number] D5-0.45% NaCl with KCl 450 20Meq/l 1,000 ml @ 150 mls/hr IV .Q6H40M [facility] Rx# :[id number] Potassium Phosphate 10 500 mmol In Sodium Chloride 0 .9% 250 ml @ 125 mls/hr IV Q2H [facility] Rx#:[id number] Sodium Chloride 0.9% 1000 20 ml @ 10 mls/hr IV cefTRIAXone 1 gm In 50 50 Sodium Chloride 0.9% 50 ml @ 100 mls/hr IVPB Q24HR [facility] Rx#:[id number] Intake, IV Titration 614.326 975 75 Amount Insulin Regular 100 unit 14.326 In Sodium Chloride 0.9% 100 ml @ 0.1 UNITS/KG/HR 6.414 mls/hr IV .[id number] [facility] Rx#:[id number] Sodium Chloride 0.45% 1, 600 975 75 000 ml @ 75 mls/hr IV . [id number] [facility] Rx#:[id number] Oral 240 Output: Urine 815 935 Emesis 50 Other: Voiding Method Indwelling Catheter Indwelling Catheter - Exam Patient is alert and awake. Speech and language functions are normal. Patient can name and repeat. She is fully oriented, knows it is May and the year is 2021 and that she is in [facility]. Speech and leg which functions are normal. Visual huntley are full, face is symmetric and tongue protrudes the midline. Muscle strength appears fairly normal. No ataxia. - Labs CBC & Chem 7: 11/29/21 06:54 11/29/21 06:54 Labs: Abnormal Lab Results - Last 24 Hours (Table) 11/28/21 11/28/21 11/28/21 Range/Units 05:39 09:18 09:51 WBC (3.8-10.6) k/uL RBC (3.80-5.40) m/uL Hgb (11.4-16.0) gm/dL MCHC (31.0-37.0) g/dL Neutrophils # (1.3-7.7) k/uL Sodium 148 H (137-145) mmol/L Potassium 5.5 H (3.5-5.1) mmol/L Chloride 126 H (98-107) mmol/L Carbon Dioxide 13 L (22-30) mmol/L BUN 28 H (7-17) mg/dL Creatinine 1.58 H (0.52-1.04) mg/dL Glucose 145 H (74-99) mg/dL POC Glucose (mg/dL) 146 H (75-99) mg/dL HDL Cholesterol 38.50 L (40.00-60.00) mg/dL 11/28/21 11/28/21 11/28/21 Range/Units 12:52 16:44 20:26 WBC (3.8-10.6) k/uL RBC (3.80-5.40) m/uL Hgb (11.4-16.0) gm/dL MCHC (31.0-37.0) g/dL Neutrophils # (1.3-7.7) k/uL Sodium (137-145) mmol/L Potassium (3.5-5.1) mmol/L Chloride (98-107) mmol/L Carbon Dioxide (22-30) mmol/L BUN (7-17) mg/dL Creatinine (0.52-1.04) mg/dL Glucose (74-99) mg/dL POC Glucose (mg/dL) 234 H 296 H 265 H (75-99) mg/dL HDL Cholesterol (40.00-60.00) mg/dL 11/28/21 11/29/21 11/29/21 Range/Units 20:37 01:38 06:28 WBC (3.8-10.6) k/uL RBC (3.80-5.40) m/uL Hgb (11.4-16.0) gm/dL MCHC (31.0-37.0) g/dL Neutrophils # (1.3-7.7) k/uL Sodium 146 H (137-145) mmol/L Potassium (3.5-5.1) mmol/L Chloride 122 H (98-107) mmol/L Carbon Dioxide 13 L (22-30) mmol/L BUN 22 H (7-17) mg/dL Creatinine 1.51 H (0.52-1.04) mg/dL Glucose 249 H (74-99) mg/dL POC Glucose (mg/dL) 337 H 225 H (75-99) mg/dL HDL Cholesterol (40.00-60.00) mg/dL 11/29/21 11/29/21 Range/Units 06:54 06:54 WBC 16.6 H (3.8-10.6) k/uL RBC 3.73 L (3.80-5.40) m/uL Hgb 11.2 L (11.4-16.0) gm/dL MCHC 30.8 L (31.0-37.0) g/dL Neutrophils # 14.2 H (1.3-7.7) k/uL Sodium 150 H (137-145) mmol/L Potassium (3.5-5.1) mmol/L Chloride 123 H (98-107) mmol/L Carbon Dioxide 12 L (22-30) mmol/L BUN 19 H (7-17) mg/dL Creatinine 1.40 H (0.52-1.04) mg/dL Glucose 213 H (74-99) mg/dL POC Glucose (mg/dL) (75-99) mg/dL HDL Cholesterol (40.00-60.00) mg/dL Microbiology - Last 24 Hours (Table) 11/27/21 14:00 Blood Culture - Preliminary Blood No Growth after 24 hours 11/27/21 14:18 Blood Culture - Preliminary Blood No Growth after 24 hours Assessment and Plan Assessment: * Altered mental status, likely due to toxic metabolic encephalopathy. * Probable nonketotic hyperosmolar * Hypothermia on presentation (due to found laying down on the ground for unknown period of time). Now temperature is normal. * Acidosis, due to above * New-onset diabetes * Moderate renal insufficiency, uncertain new or old. Perhaps due to dehydration. * High functioning autistic disorder * Macrocytosis, rule out B12, folate deficiency. * Bipolar disorder Plan: * MRI of the brain without contrast is normal. No acute process. I personally reviewed MRI and agree with the findings. No acute process. * EEG revealed background slowing of at least moderate degree. This is suggestive of generalized cerebral dysfunction as can be seen with toxic metabolic encephalopathy or due to diffuse structural brain abnormality. Clinical correlation recommended. No epileptiform activity was seen. * Medical management as per IM/critical care. Renal functions improving. * Hemoglobin A1c 13.7. IM to address diabetes management. * B12 >2000, folate 18.10. * Lipid panel with cholesterol 185, LDL 119, HDL 38, triglycerides 135. Lipids are fairly well controlled. * Patient's mentation has remarkably improved. No other neurological workup indicated. Neurology will follow sporadically.
[2021-11-29] MEDS ORDERED: INSULIN DETEMIR (LEVEMIR) 100 UNIT/ML SYR SQ SCH (09:00)
[2021-11-29] MEDS: POTASSIUM CHLORIDE 10 MEQ in WATER FOR INJECTION 1 100ML.BAG IVPB SCH ×2 (09:05→12:14)
[2021-11-29 10:22] LABS: Albumin 3.1 g/dL (3.5-5.0); Total Bilirubin 0.5 mg/dL (0.2-1.3); Total Protein 6.1 g/dL (6.3-8.2)
--- NOTE | 2021-11-29 10:26 | P.PN ---
Subjective Progress Note Date: 11/29/21 Principal diagnosis: Acute diabetic ketoacidosis and left lower lobe pneumonia with acute toxic metabolic encephalopathy This is a 41-year-old female with history of bipolar disorder, no previous documented history of diabetes. No previous medical illnesses except for bipolar disorder and generalized anxiety disorder, history of depression, patient was found on the ground by her daughter and paramedics were called. Upon arrival, the patient was on the ground, and confused. Patient could only answer very simple questions. And she has been complaining of vomiting for one day. No other symptoms. It is not clear how long has the patient was down on the ground. Patient was brought into the ER, she was noted to be confused, altered mental status, her initial workup revealed a blood sugar as high as 1131, patient was acidotic, she had a significantly elevated anion gap, she was metabolically acidotic, and she had positive ketones. Lactic acid was 5.8. ABG showed a pO2 of 138 pCO2 of less than 15 pH of 6.93 and bicarb was less than 5. CBC showed leukocytosis with WBC of 28.4. Hemoglobin 14.3. CT of the brain showed an area of low attenuation involving the temporal lobe/right, and the radiologist couldn't tell whether this is artifactual or suggestive of ischemic change. Hence he recommended MRI. Question and history of seizure, but the clinical history does not suggest any seizure history. According to her mom and to her daughter at bedside. As a matter of fact according to her family members, patient has never been diagnosed with diabetes the patient herself is a very poor historian. And she is fairly confused. The patient is seen today 11/28/2021 in follow-up in the intensive care unit. She is more awake and alert today. She is slow to respond but answering questions appropriately. She is maintaining good O2 saturations in the 90s on room air. Chest x-ray continues to show bilateral infiltrates and small effusions. She remains on ceftriaxone and azithromycin. Her blood glucose levels have improved. She is on D5 and half-normal saline with 20 mEq of potassium chloride at 150 MLS per hour. Insulin drip at 2.1 units per hour. Denies any nausea or vomiting currently. Remaining in normal sinus rhythm. White count 24.7. Hemoglobin 11.6. Sodium 150. Potassium 4.0. Chloride 126. Bicarb 12. Anion gap 12. BUN 29. Creatinine 1.55. Glucose 127. Patient was reevaluated today on 11/29/2021, patient is doing much better, she is on room air, she is hemodynamically stable, still a bit slow and weak, sodium remains elevated at 150, her IV fluid was changed to D5W today. She is off the insulin drip, and she is now on sliding scale. She is also receiving Levemir insulin once daily. WBC count remains a bit elevated at 16.6 hemoglobin is 11.2 electrolytes are noted with sodium of 150 chloride is 123 bicarb is 12 and anion gap of 15. BUN is 19 and creatinine is down to 1.40, blood sugar is 213 today. It was 249 yesterday Objective - Vital Signs Vital signs: Vital Signs Temp 98.6 F 11/29/21 08:00 Pulse 85 11/29/21 09:00 Resp 16 11/29/21 09:00 BP 127/72 11/29/21 09:00 Pulse Ox 97 11/29/21 08:00 Intake & Output 11/28/21 11/29/21 11/29/21 18:59 06:59 18:59 Intake Total 2124.326 975 625 Output Total 865 935 Balance 1259.326 40 625 Weight 72.3 kg 75.6 kg Intake: IV 1270 300 Azithromycin 500 mg In 250 250 Sodium Chloride 0.9% 250 ml @ 250 mls/hr IVPB DAILY [facility] Rx#:[id number] D5-0.45% NaCl with KCl 450 20Meq/l 1,000 ml @ 150 mls/hr IV .[id number] [facility] Rx# :[id number] Potassium Phosphate 10 500 mmol In Sodium Chloride 0 .9% 250 ml @ 125 mls/hr IV Q2H [facility] Rx#:[id number] Sodium Chloride 0.9% 1000 20 ml @ 10 mls/hr IV cefTRIAXone 1 gm In 50 50 Sodium Chloride 0.9% 50 ml @ 100 mls/hr IVPB Q24HR [facility] Rx#:[id number] Intake, IV Titration 614.326 975 325 Amount Dextrose 5% in Water 1, 150 000 ml @ 75 mls/hr IV . [id number] [facility] Rx#:[id number] Insulin Regular 100 unit 14.326 In Sodium Chloride 0.9% 100 ml @ 0.1 UNITS/KG/HR 6.414 mls/hr IV .[id number] [facility] Rx#:[id number] Potassium Chloride 10 meq 100 In Water For Injection 1 100ml.bag @ 100 mls/hr IVPB Q1H [facility] Rx#: [id number] Sodium Chloride 0.45% 1, 600 975 75 000 ml @ 75 mls/hr IV . [id number] [facility] Rx#:[id number] Oral 240 Output: Urine 815 935 Emesis 50 Other: Voiding Method Indwelling Catheter Indwelling Catheter - Exam General appearance: Revealed a 41-year-old female, in no form of respiratory distress, remains slow and slightly confused. But improved compared to the last 2 days. Head exam: Atraumatic, normocephalic. Eye exam: PERRLA, EOMI, nonicteric, dry mucous membranes. ENT exam: Dry mucous membranes otherwise negative. Neck exam: Supple no neck masses no JVD no stridor. Respiratory exam: Symmetrical chest expansion clear throughout no crackles or rhonchi or wheezes Cardiovascular Exam: Normal S1 and S2, no S3 gallop. GI/Abdominal exam: Soft nontender no megaly no rebound no guarding. Extremities exam: No clubbing edema or cyanosis. Neurological exam: Awake, minimal confusion is noted, slightly sloping Skin exam: No rashes. - Labs CBC & Chem 7: 11/29/21 06:54 11/29/21 06:54 Labs: Abnormal Lab Results - Last 24 Hours (Table) 11/28/21 11/28/21 11/28/21 Range/Units 05:39 09:51 12:52 WBC (3.8-10.6) k/uL RBC (3.80-5.40) m/uL Hgb (11.4-16.0) gm/dL MCHC (31.0-37.0) g/dL Neutrophils # (1.3-7.7) k/uL Sodium 148 H (137-145) mmol/L Potassium 5.5 H (3.5-5.1) mmol/L Chloride 126 H (98-107) mmol/L Carbon Dioxide 13 L (22-30) mmol/L BUN 28 H (7-17) mg/dL Creatinine 1.58 H (0.52-1.04) mg/dL Glucose 145 H (74-99) mg/dL POC Glucose (mg/dL) 234 H (75-99) mg/dL HDL Cholesterol 38.50 L (40.00-60.00) mg/dL 11/28/21 11/28/21 11/28/21 Range/Units 16:44 20:26 20:37 WBC (3.8-10.6) k/uL RBC (3.80-5.40) m/uL Hgb (11.4-16.0) gm/dL MCHC (31.0-37.0) g/dL Neutrophils # (1.3-7.7) k/uL Sodium 146 H (137-145) mmol/L Potassium (3.5-5.1) mmol/L Chloride 122 H (98-107) mmol/L Carbon Dioxide 13 L (22-30) mmol/L BUN 22 H (7-17) mg/dL Creatinine 1.51 H (0.52-1.04) mg/dL Glucose 249 H (74-99) mg/dL POC Glucose (mg/dL) 296 H 265 H (75-99) mg/dL HDL Cholesterol (40.00-60.00) mg/dL 11/29/21 11/29/21 11/29/21 Range/Units 01:38 06:28 06:54 WBC 16.6 H (3.8-10.6) k/uL RBC 3.73 L (3.80-5.40) m/uL Hgb 11.2 L (11.4-16.0) gm/dL MCHC 30.8 L (31.0-37.0) g/dL Neutrophils # 14.2 H (1.3-7.7) k/uL Sodium (137-145) mmol/L Potassium (3.5-5.1) mmol/L Chloride (98-107) mmol/L Carbon Dioxide (22-30) mmol/L BUN (7-17) mg/dL Creatinine (0.52-1.04) mg/dL Glucose (74-99) mg/dL POC Glucose (mg/dL) 337 H 225 H (75-99) mg/dL HDL Cholesterol (40.00-60.00) mg/dL 11/29/21 Range/Units 06:54 WBC (3.8-10.6) k/uL RBC (3.80-5.40) m/uL Hgb (11.4-16.0) gm/dL MCHC (31.0-37.0) g/dL Neutrophils # (1.3-7.7) k/uL Sodium 150 H (137-145) mmol/L Potassium (3.5-5.1) mmol/L Chloride 123 H (98-107) mmol/L Carbon Dioxide 12 L (22-30) mmol/L BUN 19 H (7-17) mg/dL Creatinine 1.40 H (0.52-1.04) mg/dL Glucose 213 H (74-99) mg/dL POC Glucose (mg/dL) (75-99) mg/dL HDL Cholesterol (40.00-60.00) mg/dL Microbiology - Last 24 Hours (Table) 11/27/21 14:00 Blood Culture - Preliminary Blood No Growth after 24 hours 11/27/21 14:18 Blood Culture - Preliminary Blood No Growth after 24 hours Assessment and Plan Assessment: Impression: New onset diabetes with acute diabetic ketoacidosis Left lower lobe pneumonia, likely community-acquired. Possible aspiration. Abnormal CT of the brain, questionable artifact versus ischemic infarct in the right parietal lobe. MRI is unremarkable. History of bipolar disorder. Will ask psychiatry to evaluate and address her psychiatric medications Anion gap metabolic acidosis secondary to acute DKA. Improved. Acute kidney injury secondary to DKA, suspect pre-renal azotemia. Improving with hydration since admission. Left lower lobe pneumonia, community-acquired or could be related to aspiration. Leukocytosis secondary to above Acute toxic metabolic encephalopathy Recommendation: Transfer patient out of the ICU to a regular medical floor. Agree with sliding scale coverage. Continue IV fluid at D5W today. And correct her hypernatremia. Patient apparently has free water deficit. GI and DVT prophylaxis. Continue antibiotics for left lower lobe pneumonia We will continue to follow. Time with Patient: Less than 30
--- NOTE | 2021-11-29 11:36 | CDI ---
Documentation Clarification Form Date: 11/29/2021 11:24:34 AM From: Quynh Obrien CCS, CCDS Admit Date: 11/27/2021 10:17:00 AM Patient Name: Eduardo Jones Visit Number: [id number] Discharge Date: ATTENTION: The Clinical Documentation Specialists (CDI) and [facility] Coding Staff appreciate your assistance in clarifying documentation. Please respond to the clarification below the line at the bottom and electronically sign. The CDI & [facility] Coding staff will review the response and follow-up if needed. Please note: Queries are made part of the Legal Health Record. If you have any questions, please contact the author of this message via ITS. Dr. Kaleb Santacruz. Sheet: ARPIT on CKD is documented in the Attending Physician Progress Note on 11/28 without further specificity or staging of CKD. Additional clarification regarding the stage of CKD is requested. History/Risk Factors per the 11/27 ED Note: Bipolar, High functioning Autism. Clinical Indicators: Presented to the ED on 11/27 via EMS with Altered mental status, found outside by her daughter who called paramedics. Patient had significantly elevated blood glucose with no reported history of Diabetes. Admit with Delirium due to general medical condition, Altered mental status, Hyperosmolar Hyperglycemic state, DKA. LAB: BUN: 11/27: 26, 25, 27, 29. 11/28: 30, 29, 28, 22. 11/29: 19 Creatinine: 11/27: 2.77, 2.24, 2.02, 1.56. 11/28: 1.55, 1.55, 1.58, 1.51. 11/29: 1.40 GFR: 11/27: 21, 27, 30, 41. 11/27: 42, 41, 43. 11/29: 47 No Historical GFR recorded. Treatment 11/27: Admit to ICU, Blood cultures, O2 2Lnc, IV Na Cl 1,000 mls @ 999 mls/hr q1H x3; IV Insulin 100 units 101 mls @ 6.414 mls/hr q15H, Heparin 5,000 units sq q12H, IV Protonix 40 mg Daily, IV Rocephin n50 mls @ 100 mls/hr q24H, IV Azithromycin 250 mls @ 250 mls/hr Daily, IV Kcl/Dextrose/Na Cl 1,000 mls @ 150 mls/hr q6H Nephrology is not consulted. Please clarify the stage of the CKD, if known: [ ] CKD Stage 3 (GFR 30-59) [ ] CKD Stage 3a (GFR 45-59) [ ] CKD Stage 3b (GFR 30-44) [ ] CKD Stage 4 (GFR 15-29) [ ] CKD ruled out [ ] Other, please specify [ ] Unable to determine (Template Last revised: August 2020) acute kidney injury , improving ,needs follow up to see if any chronic kidney disease MTDD
[2021-11-29 11:59] LABS: Glucose,Whole Blood 229 mg/dL (75-99)
[2021-11-29] MEDS ORDERED: lamoTRIgine 100 MG TAB PO STA (13:24)
--- NOTE | 2021-11-29 13:35 | P.CN ---
Psychiatric Consult - . Consult date: 11/29/21 Consult:: 11/29/21 13:34 IDENTIFYING DATA: This patient is a , unemployed, 41-year-old female with significant history of bipolar disorder and autism spectrum disorder who presented to the hospital on 11/27/2021 for altered mental status. HISTORY OF PRESENT ILLNESS: The patient presented to the hospital 11/27/2021, biting to the hospital by paramedics after being found in an altered state. Patient was noted to have significantly elevated blood glucose by paramedics despite the patient having no significant history of diabetes. Initial sugars were noted to be greater than 600. The patient was subsequently admitted to the ICU for management of diabetic ketoacidosis. Psychiatry has been consulted for evaluation and management of the patient's psychiatric medications. Currently present at the patient's bedside is her mother Quynh. The patient is agreeable to having her mother present during the psychiatric interview. Currently, the patient is not reporting any significant issues regarding her mood. She is not reporting any suicidal or homicidal ideation, intention, and/or plan. She is not reporting any significant symptoms of depression or any manic or hypomanic symptoms. She reports at baseline she has some difficulty with sleep however is not reporting that it has been pathologic. She does state that she has been having an increased appetite over the past few days prior to this episode of hyperglycemia. The patient does request that she have some of her medications decreased as she felt like she was experiencing some side effects of blurry vision and sedation with how much psychotropic medication she has been taking. In regards to psychotic symptoms, the patient is not reporting any auditory or visual hallucinations. She is denying any paranoia or other delusions. The patient reports that she has been adherent with her medications and follows up with Dr. Larsen in the outpatient setting. She reports no acute stressors or issues at home. PAST PSYCHIATRIC HISTORY: Patient has a history of bipolar disorder and high functioning autism. The patient's home medication regimen includes Lexapro 40 mg by mouth daily, Lamictal 100 mg by mouth daily, Abilify 10 mg by mouth daily, and Xanax 1 mg in the morning and 0.5 mg at bedtime. Patient denies any previous psychiatric hospitalizations. Patient is open with Dr. Larsen. Patient denies any history of suicide attempts in the past. PAST MEDICAL HISTORY: Additional Past Medical History / Comment(s): Recently complained of eyesight problem. History of Any Multi-Drug Resistant Organisms: None Reported Past Surgical History: Section, Orthopedic Surgery Additional Past Surgical History / Comment(s): L wrist ganglion cystectomy. Past Anesthesia/Blood Transfusion Reactions: No Reported Reaction Smoking Status: Current every day smoker ALLERGIES: Penicillin CHEMICAL DEPENDENCY HISTORY: Patient reports that she smokes one pack per day of tobacco. She states that she smokes approximately 2 g per day of marijuana. She denies any illicit drug use. She reports no alcohol use. FAMILY PSYCHIATRIC/SUBSTANCE USE HISTORY: No reported family psychiatric history. SOCIAL HISTORY: Patient was born and raised in [place], [place]. She currently lives with her daughter Marcus who is 15 years old. She is . She reports no history of legal issues. She reports no history, baptism affiliation, or any history of incarceration. MENTAL STATUS EXAM: General Appearance: Patient appears to be stated age is alert, pleasant, and cooperative. Patient appears to have fair hygiene and grooming wearing hospital gown with fair eye contact. Behavior: Patient is calmly lying in bed without any agitated behavior. Speech: Patient's speech is fluent and nonpressured. Mood/Affect: Patient reports their mood is "feeling better", affect is congruent and somewhat constricted. Suicidality/Homicidality: Patient denies having any suicidal or homicidal ideation intent or plan. Perceptions: Patient denies any visual hallucinations and denies any auditory hallucinations Though content/process: There is no evidence of any delusional thought content and thought process is linear and goal-directed. Memory and concentration: AOX3, grossly intact for the purposes of this session. Can spell "WORLD" backwards Judgment and insight: Fair IMPRESSIONS: New-onset diabetes with acute diabetic ketoacidosis Bipolar disorder Autism spectrum disorder Cannabis use Nicotine dependence PLAN: -Continue your medical management. -Patient counselled on substance use and abuse. Recommended abstaining from nicotine and cannabis. -At this time patient DOES NOT meet criteria for inpatient psychiatric admission. Currently, the patient is not presenting with any imminent risk of harm to self or others. She has not engaged in any prior attempts at suicide. She has numerous protective factors including supportive family and to deter children. -Would recommend the following medication changes/additions: We will restart her home medications with Lexapro 20 mg daily as 40 mg is above the FDA recommended dose for depression. We will continue Lamictal 100 mg by mouth daily for bipolar disorder We will continue Xanax 0.5 mg by mouth twice a day when necessary for anxiety Recommend continuing to hold Abilify as this medication has known side effect of hyperglycemia and may have contributed as well as to binge eating. -Recommend outpatient follow-up with her psychiatric provider. -Psychiatry will sign off at this point, please contact with any questions. 11/29/21 13:34
[2021-11-29] MEDS: ALPRAZolam 0.5 MG TAB PO PRN (16:06)
[2021-11-29 16:13] LABS: Glucose,Whole Blood 298 mg/dL (75-99)
[2021-11-29 20:56] LABS: Glucose,Whole Blood 291 mg/dL (75-99)
--- NOTE | 2021-11-29 22:38 | P.PN ---
Subjective 41-year-old female came in altered mental status patient is unresponsive at this time unable to get any history from the patient patient that was found by the daughter in the driveway unresponsive. Patient is found to have highly elevated blood sugars of 11,000 with an anion gap of around 36. Patient is not a diabetic. Patient usually can drive although patient does have some hemorrhoidal issues including ADHD. Patient is subsequently admitted to ICU. Patient has lactic acid of around 5.8 chest x-ray was read as possibly of pneumonia because of which patient was started on Rocephin and maybe some aspiration. Unable to look at the X-ray images at this time, CT of the brain showed an area of low attenuation involving the temporal lobe on the right side probably artifact. Subjective: Resume the care of the patient today 11/28/2021 Patient remains in the ICU confused. Father at bedside. She is awake and alert, she does not follow most of the simple commands. She could not tell the place except partially but she is disoriented to person and time. She looks encephalopathic. However there is no localization or asymmetry. She moves extremities equally. Cranial nerves are grossly intact. She's been followed closely by neurology service. EEG today she is negative for epileptiform discharges showing severe toxic encephalopathy. MRI of the brain is negative. Chest x-ray showing bilateral pneumonia and patient currently covered with Zithromax and ceftriaxone and follow-up by pulmonary service closely. Her DKA is improving and switched to insulin sliding scale and diabetic diet 11/29/2021 Patient today is more awake and, she is oriented today to time, place and person. She denies significant coughing or dyspnea. No chest pain. She is hemodynamically stable. Sodium today increased to 150, creatinine at baseline at 1.4. She remains on Zithromax and ceftriaxone for pneumonia. Her DKA resolved and switched to insulin sliding scale. Also she started on Levemir 8 units from tomorrow but also she is on D5 W because of her hypernatremia. Patient encouraged to eat and drink more. Psychiatric team will evaluate the patient for her bipolar disease. Objective - Vital Signs Vital signs: Vital Signs Temp 98.6 F 11/29/21 08:00 Pulse 85 11/29/21 09:00 Resp 16 11/29/21 09:00 BP 127/72 11/29/21 09:00 Pulse Ox 97 11/29/21 08:00 Intake & Output 11/28/21 11/29/21 11/29/21 18:59 06:59 18:59 Intake Total 2124.326 975 625 Output Total 865 935 Balance 1259.326 40 625 Weight 72.3 kg 75.6 kg Intake: IV 1270 300 Azithromycin 500 mg In 250 250 Sodium Chloride 0.9% 250 ml @ 250 mls/hr IVPB DAILY [facility] Rx#:[id number] D5-0.45% NaCl with KCl 450 20Meq/l 1,000 ml @ 150 mls/hr IV .[id number] [facility] Rx# :[id number] Potassium Phosphate 10 500 mmol In Sodium Chloride 0 .9% 250 ml @ 125 mls/hr IV Q2H [facility] Rx#:[id number] Sodium Chloride 0.9% 1000 20 ml @ 10 mls/hr IV cefTRIAXone 1 gm In 50 50 Sodium Chloride 0.9% 50 ml @ 100 mls/hr IVPB Q24HR [facility] Rx#:[id number] Intake, IV Titration 614.326 975 325 Amount Dextrose 5% in Water 1, 150 000 ml @ 75 mls/hr IV . [id number] [facility] Rx#:[id number] Insulin Regular 100 unit 14.326 In Sodium Chloride 0.9% 100 ml @ 0.1 UNITS/KG/HR 6.414 mls/hr IV .[id number] [facility] Rx#:[id number] Potassium Chloride 10 meq 100 In Water For Injection 1 100ml.bag @ 100 mls/hr IVPB Q1H [facility] Rx#: [id number] Sodium Chloride 0.45% 1, 600 975 75 000 ml @ 75 mls/hr IV . [id number] [facility] Rx#:[id number] Oral 240 Output: Urine 815 935 Emesis 50 Other: Voiding Method Indwelling Catheter Indwelling Catheter - Exam -GENERAL: The patient is alert and oriented x 3 , not in any acute distress. Well developed, well nourished. HEENT: Pupils are round and equally reacting to light. EOMI. No scleral icterus. No conjunctival pallor. Normocephalic, atraumatic. No pharyngeal erythema. No thyromegaly. CARDIOVASCULAR: S1 and S2 present. No murmurs, rubs, or gallops. PULMONARY: Chest is clear to auscultation, no wheezing or crackles. ABDOMEN: Soft, nontender, nondistended, normoactive bowel sounds. No palpable organomegaly. MUSCULOSKELETAL: No joint swelling or deformity. EXTREMITIES: No cyanosis, clubbing, or pedal edema. NEUROLOGICAL: Gross neurological examination did not reveal any focal deficits. SKIN: No rashes. no petechiae. - Labs CBC & Chem 7: 11/29/21 06:54 11/29/21 06:54 Labs: Abnormal Lab Results - Last 24 Hours (Table) 11/28/21 11/28/21 11/28/21 Range/Units 05:39 12:52 16:44 WBC (3.8-10.6) k/uL RBC (3.80-5.40) m/uL Hgb (11.4-16.0) gm/dL MCHC (31.0-37.0) g/dL Neutrophils # (1.3-7.7) k/uL Sodium (137-145) mmol/L Chloride (98-107) mmol/L Carbon Dioxide (22-30) mmol/L BUN (7-17) mg/dL Creatinine (0.52-1.04) mg/dL Glucose (74-99) mg/dL POC Glucose (mg/dL) 234 H 296 H (75-99) mg/dL Hemoglobin A1c (0.0-6.0) % Total Protein (6.3-8.2) g/dL Albumin (3.5-5.0) g/dL HDL Cholesterol 38.50 L (40.00-60.00) mg/dL 11/28/21 11/28/21 11/29/21 Range/Units 20:26 20:37 01:38 WBC (3.8-10.6) k/uL RBC (3.80-5.40) m/uL Hgb (11.4-16.0) gm/dL MCHC (31.0-37.0) g/dL Neutrophils # (1.3-7.7) k/uL Sodium 146 H (137-145) mmol/L Chloride 122 H (98-107) mmol/L Carbon Dioxide 13 L (22-30) mmol/L BUN 22 H (7-17) mg/dL Creatinine 1.51 H (0.52-1.04) mg/dL Glucose 249 H (74-99) mg/dL POC Glucose (mg/dL) 265 H 337 H (75-99) mg/dL Hemoglobin A1c (0.0-6.0) % Total Protein (6.3-8.2) g/dL Albumin (3.5-5.0) g/dL HDL Cholesterol (40.00-60.00) mg/dL 11/29/21 11/29/21 11/29/21 Range/Units 06:28 06:54 06:54 WBC 16.6 H (3.8-10.6) k/uL RBC 3.73 L (3.80-5.40) m/uL Hgb 11.2 L (11.4-16.0) gm/dL MCHC 30.8 L (31.0-37.0) g/dL Neutrophils # 14.2 H (1.3-7.7) k/uL Sodium (137-145) mmol/L Chloride (98-107) mmol/L Carbon Dioxide (22-30) mmol/L BUN (7-17) mg/dL Creatinine (0.52-1.04) mg/dL Glucose (74-99) mg/dL POC Glucose (mg/dL) 225 H (75-99) mg/dL Hemoglobin A1c 13.8 H (0.0-6.0) % Total Protein (6.3-8.2) g/dL Albumin (3.5-5.0) g/dL HDL Cholesterol (40.00-60.00) mg/dL 11/29/21 Range/Units 06:54 WBC (3.8-10.6) k/uL RBC (3.80-5.40) m/uL Hgb (11.4-16.0) gm/dL MCHC (31.0-37.0) g/dL Neutrophils # (1.3-7.7) k/uL Sodium 150 H (137-145) mmol/L Chloride 123 H (98-107) mmol/L Carbon Dioxide 12 L (22-30) mmol/L BUN 19 H (7-17) mg/dL Creatinine 1.40 H (0.52-1.04) mg/dL Glucose 213 H (74-99) mg/dL POC Glucose (mg/dL) (75-99) mg/dL Hemoglobin A1c (0.0-6.0) % Total Protein 6.1 L (6.3-8.2) g/dL Albumin 3.1 L (3.5-5.0) g/dL HDL Cholesterol (40.00-60.00) mg/dL Microbiology - Last 24 Hours (Table) 11/27/21 14:00 Blood Culture - Preliminary Blood No Growth after 24 hours 11/27/21 14:18 Blood Culture - Preliminary Blood No Growth after 24 hours Assessment and Plan Assessment: - Altered mental status. Secondary to toxic/metabolic encephalopathy. Neurologist service on the case. Improved significantly - New-onset type 2 diabetes mellitus with the diabetic ketoacidosis/resolved. Continue with insulin sliding scale and diabetic diet. Also started on the femur and 2 minutes but please note patient also on D5W at 75 mL/h - Hypernatremia, started on D5W. Follow-up sodium level - Bilateral pneumonia, community-acquired. Continue with ceftriaxone and Zithromax. Pulmonary consult. - ARPIT on CKD. Creatinine improving - History of bipolar, psychiatry consult DVT prophylaxis: Subcutaneous heparin GI prophylaxis: Protonix Prognosis fair
--- NOTE | 2021-11-29 23:06 | P.PN ---
Subjective Progress Note Date: 11/29/21 Patient was seen for a follow-up. Patient's mother was also present today. Patient is fully alert and awake. Patient's mother believes that she is almost back to baseline. Objective - Vital Signs Vital signs: Vital Signs Temp 97.9 F 11/29/21 16:00 Pulse 68 11/29/21 16:00 Resp 18 11/29/21 16:00 BP 126/76 11/29/21 16:00 Pulse Ox 95 11/29/21 16:00 Intake & Output 11/28/21 11/29/21 11/29/21 18:59 06:59 18:59 Intake Total 2124.833 779 2361 Output Total 865 935 0 Balance 1259.455 40 8680 Weight 72.3 kg 75.6 kg Intake: IV 1270 300 Azithromycin 500 mg In 250 250 Sodium Chloride 0.9% 250 ml @ 250 mls/hr IVPB DAILY [facility] Rx#:[id number] D5-0.45% NaCl with KCl 450 20Meq/l 1,000 ml @ 150 mls/hr IV .[id number] [facility] Rx# :[id number] Potassium Phosphate 10 500 mmol In Sodium Chloride 0 .9% 250 ml @ 125 mls/hr IV Q2H [facility] Rx#:[id number] Sodium Chloride 0.9% 1000 20 ml @ 10 mls/hr IV cefTRIAXone 1 gm In 50 50 Sodium Chloride 0.9% 50 ml @ 100 mls/hr IVPB Q24HR [facility] Rx#:[id number] Intake, IV Titration 614.703 567 3948 Amount Dextrose 5% in Water 1, 750 000 ml @ 75 mls/hr IV . [id number] [facility] Rx#:[id number] Insulin Regular 100 unit 14.326 In Sodium Chloride 0.9% 100 ml @ 0.1 UNITS/KG/HR 6.414 mls/hr IV .[id number] [facility] Rx#:[id number] Potassium Chloride 10 meq 200 In Water For Injection 1 100ml.bag @ 100 mls/hr IVPB Q1H [facility] Rx#: [id number] Sodium Chloride 0.45% 1, 600 975 75 000 ml @ 75 mls/hr IV . [id number] [facility] Rx#:[id number] Oral 240 240 Output: Urine 815 935 Post Void Residual 0 Emesis 50 Other: Voiding Method Indwelling Catheter Indwelling Catheter Toilet # Voids 1 - Exam Patient is alert and awake. Speech and language functions are normal. Patient can name and repeat. She is fully oriented, knows it is November and the year is 2021 and that she is in [facility]. Speech and l language functions are normal. Visual huntley are full, face is symmetric and tongue protrudes the midline. Muscle strength appears fairly normal. No ataxia. - Labs CBC & Chem 7: 11/29/21 06:54 11/29/21 06:54 Labs: Abnormal Lab Results - Last 24 Hours (Table) 11/28/21 11/28/21 11/29/21 Range/Units 20:26 20:37 01:38 WBC (3.8-10.6) k/uL RBC (3.80-5.40) m/uL Hgb (11.4-16.0) gm/dL MCHC (31.0-37.0) g/dL Neutrophils # (1.3-7.7) k/uL Sodium 146 H (137-145) mmol/L Chloride 122 H (98-107) mmol/L Carbon Dioxide 13 L (22-30) mmol/L BUN 22 H (7-17) mg/dL Creatinine 1.51 H (0.52-1.04) mg/dL Glucose 249 H (74-99) mg/dL POC Glucose (mg/dL) 265 H 337 H (75-99) mg/dL Hemoglobin A1c (0.0-6.0) % Total Protein (6.3-8.2) g/dL Albumin (3.5-5.0) g/dL 11/29/21 11/29/21 11/29/21 Range/Units 06:28 06:54 06:54 WBC 16.6 H (3.8-10.6) k/uL RBC 3.73 L (3.80-5.40) m/uL Hgb 11.2 L (11.4-16.0) gm/dL MCHC 30.8 L (31.0-37.0) g/dL Neutrophils # 14.2 H (1.3-7.7) k/uL Sodium (137-145) mmol/L Chloride (98-107) mmol/L Carbon Dioxide (22-30) mmol/L BUN (7-17) mg/dL Creatinine (0.52-1.04) mg/dL Glucose (74-99) mg/dL POC Glucose (mg/dL) 225 H (75-99) mg/dL Hemoglobin A1c 13.8 H (0.0-6.0) % Total Protein (6.3-8.2) g/dL Albumin (3.5-5.0) g/dL 11/29/21 11/29/21 11/29/21 Range/Units 06:54 11:57 16:11 WBC (3.8-10.6) k/uL RBC (3.80-5.40) m/uL Hgb (11.4-16.0) gm/dL MCHC (31.0-37.0) g/dL Neutrophils # (1.3-7.7) k/uL Sodium 150 H (137-145) mmol/L Chloride 123 H (98-107) mmol/L Carbon Dioxide 12 L (22-30) mmol/L BUN 19 H (7-17) mg/dL Creatinine 1.40 H (0.52-1.04) mg/dL Glucose 213 H (74-99) mg/dL POC Glucose (mg/dL) 229 H 298 H (75-99) mg/dL Hemoglobin A1c (0.0-6.0) % Total Protein 6.1 L (6.3-8.2) g/dL Albumin 3.1 L (3.5-5.0) g/dL Microbiology - Last 24 Hours (Table) 11/27/21 14:00 Blood Culture - Preliminary Blood No Growth after 48 hours 11/27/21 14:18 Blood Culture - Preliminary Blood No Growth after 48 hours Assessment and Plan Assessment: * Altered mental status, likely due to toxic metabolic encephalopathy. * Probable nonketotic hyperosmolar state versus DKA. * Hypothermia on presentation (due to found laying down on the ground for unknown period of time). Now temperature is normal. * Acidosis, due to above * New-onset diabetes * Moderate renal insufficiency, uncertain new or old. Perhaps due to dehydration. * High functioning autistic disorder * Macrocytosis, no evidence of B12 or folate deficiency. * Bipolar disorder Plan: * MRI of the brain without contrast is normal. No acute process. I personally reviewed MRI and agree with the findings. No acute process. * EEG revealed background slowing of at least moderate degree. This is suggestive of generalized cerebral dysfunction as can be seen with toxic metabolic encephalopathy or due to diffuse structural brain abnormality. Clinical correlation recommended. No epileptiform activity was seen. * Medical management as per IM/critical care. Renal functions improving. * Hemoglobin A1c 13.7. IM to address diabetes management. * B12 >2000, folate 18.10. * Lipid panel with cholesterol 185, LDL 119, HDL 38, triglycerides 135. Lipids are fairly well controlled. * Patient's mentation is almost back to baseline. No other neurological workup indicated. Neurology will follow sporadically.
[2021-11-30 02:24] LABS: Glucose,Whole Blood 296 mg/dL (75-99)
[2021-11-30] MEDS: INSULIN ASPART (NovoLOG) 100 UNIT/ML VIAL SQ SCH ×5 (02:30→21:42)
[2021-11-30] MEDS ORDERED: INSULIN DETEMIR (LEVEMIR) 100 UNIT/ML SYR SQ SCH (07:00)
[2021-11-30 07:06] LABS: Glucose,Whole Blood 222 mg/dL (75-99)
[2021-11-30] MEDS: PANTOPRAZOLE 40 MG/10 ML VIAL IVP SCH (07:41)
[2021-11-30] MEDS: HEPARIN SODIUM,PORCINE/PF 5,000 UNIT/0.5 ML SYRINGE SQ SCH ×2 (08:30→21:42)
[2021-11-30] MEDS: ESCITALOPRAM 20 MG TAB PO SCH (08:31)
[2021-11-30] MEDS: lamoTRIgine 100 MG TAB PO SCH (08:31)
[2021-11-30] MEDS: ALPRAZolam 0.5 MG TAB PO PRN ×2 (08:44→21:42)
[2021-11-30 10:58] LABS: Basophils % (A) 0 %; Eosinophils # (A) 0.1 k/uL (0-0.7); Eosinophils % (A) 1 %; HCT 31.8 % (34.0-46.0); HGB 10.5 gm/dL (11.4-16.0); Lymphocytes # (A) 1.3 k/uL (1.0-4.8); Lymphocytes % (A) 11 %; MCH 31.2 pg (25.0-35.0); MCHC 33.1 g/dL (31.0-37.0); MCV 94.4 fL (80.0-100.0); Mean Platelet Volume 10.4; Monocytes # (A) 0.3 k/uL (0-1.0); Monocytes % (A) 3 %; Neutrophils # (A) 9.8 k/uL (1.3-7.7); Neutrophils % (A) 84 %; Platelet Count 241 k/uL (150-450); RBC 3.37 m/uL (3.80-5.40); RDW 13.4 % (11.5-15.5); WBC 11.6 k/uL (3.8-10.6)
[2021-11-30 11:13] LABS: Glucose,Whole Blood 246 mg/dL (75-99)
[2021-11-30 11:30] LABS: African American GFR (CKD) 76 (>60 ml/min/1.73 sqM); Anion Gap 9 mmol/L; Blood Urea Nitrogen 14 mg/dL (7-17); Calcium 8.8 mg/dL (8.4-10.2); Carbon Dioxide 20 mmol/L (22-30); Chloride 116 mmol/L (98-107); Glucose 267 mg/dL (74-99); Non-African American GFR(CKD) 66 (>60 ml/min/1.73 sqM); Potassium 3.2 mmol/L (3.5-5.1); Sodium 145 mmol/L (137-145)
[2021-11-30 11:38] VITALS: BMI 24.6
[2021-11-30] MEDS: POTASSIUM CHLORIDE ER 20 MEQ TAB.ER PO SCH ×2 (12:11→13:28)
--- NOTE | 2021-11-30 14:32 | P.PN ---
Subjective Progress Note Date: 11/30/21 Principal diagnosis: Left lower lobe pneumonia, acute diabetic ketoacidosis This is a 41-year-old female with history of bipolar disorder, no previous documented history of diabetes. No previous medical illnesses except for bipolar disorder and generalized anxiety disorder, history of depression, patient was found on the ground by her daughter and paramedics were called. Upo n arrival, the patient was on the ground, and confused. Patient could only answer very simple questions. And she has been complaining of vomiting for one day. No other symptoms. It is not clear how long has the patient was down on the ground. Patient was brought into the ER, she was noted to be confused, altered mental status, her initial workup revealed a blood sugar as high as 1131, patient was acidotic, she had a significantly elevated anion gap, she was metabolically acidotic, and she had positive ketones. Lactic acid was 5.8. ABG showed a pO2 of 138 pCO2 of less than 15 pH of 6.93 and bicarb was less than 5. CBC showed leukocytosis with WBC of 28.4. Hemoglobin 14.3. CT of the brain showed an area of low attenuation involving the temporal lobe/right, and the radiologist couldn't tell whether this is artifactual or suggestive of ischemic change. Hence he recommended MRI. Question and history of seizure, but the clinical history does not suggest any seizure history. According to her mom and to her daughter at bedside. As a matter of fact according to her family member s, patient has never been diagnosed with diabetes the patient herself is a very poor historian. And she is fairly confused. The patient is seen today 11/28/2021 in follow-up in the intensive care unit. She is more awake and alert today. She is slow to respond but answering questions appropriately. She is maintaining good O2 saturations in the 90s on room air. Chest x-ray continues to show bilateral infiltrates and small effusions. She remains on ceftriaxone and azithromycin. Her blood glucose levels have improved. She is on D5 and half-normal saline with 20 mEq of potassium chloride at 150 MLS per hour. Insulin drip at 2.1 units per hour. Denies any nausea or vomiting currently. Remaining in normal sinus rhythm. White count 24.7. Hemoglobin 11.6. Sodium 150. Potassium 4.0. Chloride 126. Bicarb 12. Anion gap 12. BUN 29. Creatinine 1.55. Glucose 127. Patient was reevaluated today on 11/29/2021, patient is doing much better, she is on room air, she is hemodynamically stable, still a bit slow and weak, sodium remains elevated at 150, her IV fluid was changed to D5W today. She is off the insulin drip, and she is now on sliding scale. She is also receiving Levemir insulin once daily. WBC count remains a bit elevated at 16.6 hemoglobin is 11.2 electrolytes are noted with sodium of 150 chloride is 123 bicarb is 12 and anion gap of 15. BUN is 19 and creatinine is down to 1.40, blood sugar is 213 today. It was 249 yesterday On 11/30/2021 patient seen in follow-up on medical surgical floor. She is awake, and alert, she is still a bit slow to respond, but she is more interactive, she is responding to questions appropriately. Does not appear to be in any acute distress, she denies any shortness of breath, no cough, room air pulse ox is 96-99%, vital signs are stable, low-grade fever this morning, with a temp of 99.6F. Afebrile over the last 24 hours. His labs have been reviewed, white blood cell count is improving and is down to 11.6, hemoglobin is 10.5, sodium is 145, potassium 3.2, chloride is 116, CO2 is up to 20, BUN is 14 creatinine is 1.07. Patient's blood cultures have shown no growth, patient remains on Rocephin for possibility of left lower lobe pneumonia. She has been transitioned to Levemir insulin 15 units in the morning, and sliding-scale and mealtime NovoLog. Follow-up chest x-ray for today is pending. No nausea or vomiting, she has been tolerating regular diet. Patient had a MRI of the brain which was unremarkable. Objective - Vital Signs Vital signs: Vital Signs Temp 99.6 F 11/30/21 08:00 Pulse 72 11/30/21 08:00 Resp 18 11/30/21 08:00 BP 129/76 11/30/21 08:00 Pulse Ox 96 11/30/21 08:00 Intake & Output 11/29/21 11/30/21 11/30/21 18:59 06:59 18:59 Intake Total 1565 Output Total 0 Balance 1565 Weight 75.6 kg Intake: IV 300 Azithromycin 500 mg In 250 Sodium Chloride 0.9% 250 ml @ 250 mls/hr IVPB DAILY [facility] Rx#:[id number] cefTRIAXone 1 gm In 50 Sodium Chloride 0.9% 50 ml @ 100 mls/hr IVPB Q24HR [facility] Rx#:[id number] Intake, IV Titration 1025 Amount Dextrose 5% in Water 1, 750 000 ml @ 75 mls/hr IV . [id number] [facility] Rx#:[id number] Potassium Chloride 10 meq 200 In Water For Injection 1 100ml.bag @ 100 mls/hr IVPB Q1H [facility] Rx#: [id number] Sodium Chloride 0.45% 1, 75 000 ml @ 75 mls/hr IV . [id number] [facility] Rx#:[id number] Oral 240 Output: Post Void Residual 0 Other: Voiding Method Toilet Toilet # Voids 1 - Exam GENERAL EXAM: Alert, very pleasant, 41-year-old white female, resting in bed, breathing comfortably, oriented 3, slightly slow to respond, however responds appropriately. comfortable in no apparent distress. HEAD: Normocephalic/atraumatic. EYES: Normal reaction of pupils, equal size. Conjunctiva pink, sclera white. NOSE: Clear with pink turbinates. THROAT: No erythema or exudates. NECK: No masses, no JVD, no thyroid enlargement, no adenopathy. CHEST: No chest wall deformity. Symmetrical expansion. LUNGS: Equal air entry with no crackles, wheeze, rhonchi or dullness. CVS: Regular rate and rhythm, normal S1 and S2, no gallops, no murmurs, no rubs ABDOMEN: Soft, nontender. No hepatosplenomegaly, normal bowel sounds, no guarding or rigidity. EXTREMITIES: No clubbing, no edema, no cyanosis, 2+ pulses and upper and lower extremities. MUSCULOSKELETAL: Muscle strength and tone normal. SPINE: No scoliosis or deformity SKIN: No rashes CENTRAL NERVOUS SYSTEM: Alert and oriented -3. No focal deficits, tone is normal in all 4 extremities. PSYCHIATRIC: Alert and oriented -3. Appropriate affect. Intact judgment and insight. - Labs CBC & Chem 7: 11/30/21 10:05 11/30/21 10:05 Labs: Abnormal Lab Results - Last 24 Hours (Table) 11/29/21 11/29/21 11/30/21 Range/Units 16:11 20:55 02:20 WBC (3.8-10.6) k/uL RBC (3.80-5.40) m/uL Hgb (11.4-16.0) gm/dL Hct (34.0-46.0) % Neutrophils # (1.3-7.7) k/uL Potassium (3.5-5.1) mmol/L Chloride (98-107) mmol/L Carbon Dioxide (22-30) mmol/L Creatinine (0.52-1.04) mg/dL Glucose (74-99) mg/dL POC Glucose (mg/dL) 298 H 291 H 296 H (75-99) mg/dL 11/30/21 11/30/21 11/30/21 Range/Units 07:04 10:05 10:05 WBC 11.6 H (3.8-10.6) k/uL RBC 3.37 L (3.80-5.40) m/uL Hgb 10.5 L (11.4-16.0) gm/dL Hct 31.8 L (34.0-46.0) % Neutrophils # 9.8 H (1.3-7.7) k/uL Potassium 3.2 L (3.5-5.1) mmol/L Chloride 116 H (98-107) mmol/L Carbon Dioxide 20 L (22-30) mmol/L Creatinine 1.07 H (0.52-1.04) mg/dL Glucose 267 H (74-99) mg/dL POC Glucose (mg/dL) 222 H (75-99) mg/dL 11/30/21 Range/Units 11:11 WBC (3.8-10.6) k/uL RBC (3.80-5.40) m/uL Hgb (11.4-16.0) gm/dL Hct (34.0-46.0) % Neutrophils # (1.3-7.7) k/uL Potassium (3.5-5.1) mmol/L Chloride (98-107) mmol/L Carbon Dioxide (22-30) mmol/L Creatinine (0.52-1.04) mg/dL Glucose (74-99) mg/dL POC Glucose (mg/dL) 246 H (75-99) mg/dL Microbiology - Last 24 Hours (Table) 11/27/21 14:00 Blood Culture - Preliminary Blood No Growth after 48 hours 11/27/21 14:18 Blood Culture - Preliminary Blood No Growth after 48 hours Assessment and Plan Plan: Assessment: #1. New-onset diabetes with acute diabetic ketoacidosis #2. Left lower lobe pneumonia, likely community-acquired, versus aspiration related #3. Abnormal CT of the brain, with questionable artifact versus ischemic infarct in the right parietal lobe, MRI was unremarkable #4. History of bipolar disorder #5. Benign gap metabolic acidosis secondary to DKA, improved #6. Acute kidney injury secondary to DKA, suspect prerenal azotemia, improving with hydration #7. Leukocytosis, related to left lower lobe pneumonia, community-acquired, versus aspiration related, improving #8. Acute toxic metabolic encephalopathy, improving Plan: Clinically patient is improving No worsening shortness of breath, vital signs are stable, leukocytosis continues to improve Continue current antibiotics We'll obtain follow-up chest x-ray today Continue GI and DVT prophylaxis Continue Levemir and subcutaneous NovoLog Increase activity as tolerated Chest x-ray findings are improving and patient remains stable she may go considered for discharge once cleared by medicine I have personally seen and examined the patient, performed the documentation and the assessment and plan as written. Number of minutes spent on the visit: [10] Time with Patient: Less than 30
--- NOTE | 2021-11-30 14:55 | XR ---
EXAMINATION TYPE: XR chest 1V portable DATE OF EXAM: 11/30/2021 COMPARISON: Chest x-ray 11/28/2021 HISTORY: Left lower lobe pneumonia TECHNIQUE: Single frontal view of the chest is obtained. FINDINGS: Bilateral airspace disease shows a similar appearance. No evident pneumothorax or pleural effusion. Cardiomediastinal silhouette is stable. IMPRESSION: Bilateral pneumonia
--- NOTE | 2021-11-30 16:31 | P.PN ---
Subjective Progress Note Date: 11/30/21 Patient was seen for a follow-up. Patient laying comfortably in the bed. Patient denies any problems with memory, balance or gait. She feels back to baseline. No new neurological concerns. Objective - Vital Signs Vital signs: Vital Signs Temp 98.8 F 11/30/21 14:00 Pulse 78 11/30/21 14:00 Resp 18 11/30/21 14:00 BP 115/75 11/30/21 14:00 Pulse Ox 98 11/30/21 14:00 Intake & Output 11/29/21 11/30/21 11/30/21 18:59 06:59 18:59 Intake Total 1565 Output Total 0 Balance 1565 Weight 75.6 kg Intake: IV 300 Azithromycin 500 mg In 250 Sodium Chloride 0.9% 250 ml @ 250 mls/hr IVPB DAILY [facility] Rx#:[id number] cefTRIAXone 1 gm In 50 Sodium Chloride 0.9% 50 ml @ 100 mls/hr IVPB Q24HR [facility] Rx#:[id number] Intake, IV Titration 1025 Amount Dextrose 5% in Water 1, 750 000 ml @ 75 mls/hr IV . [id number] [facility] Rx#:[id number] Potassium Chloride 10 meq 200 In Water For Injection 1 100ml.bag @ 100 mls/hr IVPB Q1H [facility] Rx#: [id number] Sodium Chloride 0.45% 1, 75 000 ml @ 75 mls/hr IV . [id number] [facility] Rx#:[id number] Oral 240 Output: Post Void Residual 0 Other: Voiding Method Toilet Toilet # Voids 1 - Exam Patient is alert and awake. Speech and language functions are normal. Patient can name and repeat. She is fully oriented, knows it is November and the year is 2021 and that she is in [facility]. Speech and l language functions are normal. Visual huntley are full, face is symmetric and tongue protrudes the midline. Muscle strength appears fairly normal. No ataxia. - Labs CBC & Chem 7: 11/30/21 10:05 11/30/21 10:05 Labs: Abnormal Lab Results - Last 24 Hours (Table) 11/29/21 11/30/21 11/30/21 Range/Units 20:55 02:20 07:04 WBC (3.8-10.6) k/uL RBC (3.80-5.40) m/uL Hgb (11.4-16.0) gm/dL Hct (34.0-46.0) % Neutrophils # (1.3-7.7) k/uL Potassium (3.5-5.1) mmol/L Chloride (98-107) mmol/L Carbon Dioxide (22-30) mmol/L Creatinine (0.52-1.04) mg/dL Glucose (74-99) mg/dL POC Glucose (mg/dL) 291 H 296 H 222 H (75-99) mg/dL 11/30/21 11/30/21 11/30/21 Range/Units 10:05 10:05 11:11 WBC 11.6 H (3.8-10.6) k/uL RBC 3.37 L (3.80-5.40) m/uL Hgb 10.5 L (11.4-16.0) gm/dL Hct 31.8 L (34.0-46.0) % Neutrophils # 9.8 H (1.3-7.7) k/uL Potassium 3.2 L (3.5-5.1) mmol/L Chloride 116 H (98-107) mmol/L Carbon Dioxide 20 L (22-30) mmol/L Creatinine 1.07 H (0.52-1.04) mg/dL Glucose 267 H (74-99) mg/dL POC Glucose (mg/dL) 246 H (75-99) mg/dL Microbiology - Last 24 Hours (Table) 11/27/21 14:00 Blood Culture - Preliminary Blood No Growth after 48 hours 11/27/21 14:18 Blood Culture - Preliminary Blood No Growth after 48 hours Assessment and Plan Assessment: * Altered mental status, likely due to toxic metabolic encephalopathy. Now r esolved. * Probable nonketotic hyperosmolar state versus DKA. * Hypothermia on presentation (due to found laying down on the ground for unknown period of time). Now temperature is normal. * Acidosis, due to above * New-onset diabetes * Moderate renal insufficiency, uncertain new or old. Perhaps due to dehydration. * High functioning autistic disorder * Macrocytosis, no evidence of B12 or folate deficiency. * Bipolar disorder Plan: * MRI of the brain without contrast is normal. No acute process. I personally reviewed MRI and agree with the findings. No acute process. * EEG revealed background slowing of at least moderate degree. This is suggestive of generalized cerebral dysfunction as can be seen with toxic metabolic encephalopathy or due to diffuse structural brain abnormality. Clinical correlation recommended. No epileptiform activity was seen. * Medical management as per IM/critical care. Renal functions improving. * Hemoglobin A1c 13.7. IM to address diabetes management. * B12 >2000, folate 18.10. * Lipid panel with cholesterol 185, LDL 119, HDL 38, triglycerides 135. Lipids are fairly well controlled. * Patient's mentation is almost back to baseline. No other neurological workup indicated. Neurology will sign off. Please reconsult if any other concerns.
[2021-11-30 17:07] LABS: Glucose,Whole Blood 268 mg/dL (75-99)
[2021-11-30 20:13] LABS: Glucose,Whole Blood 254 mg/dL (75-99)
[2021-11-30 21:35] LABS: Glucose,Whole Blood 228 mg/dL (75-99)
[2021-12-01 02:05] LABS: Glucose,Whole Blood 188 mg/dL (75-99)
[2021-12-01] MEDS: INSULIN ASPART (NovoLOG) 100 UNIT/ML VIAL SQ SCH ×5 (02:28→20:50)
[2021-12-01 06:58] LABS: Glucose,Whole Blood 242 mg/dL (75-99)
[2021-12-01 08:26] LABS: African American GFR (CKD) >90 (>60 ml/min/1.73 sqM); Anion Gap 10 mmol/L; Blood Urea Nitrogen 14 mg/dL (7-17); Calcium 8.7 mg/dL (8.4-10.2); Carbon Dioxide 18 mmol/L (22-30); Chloride 118 mmol/L (98-107); Glucose 280 mg/dL (74-99); Non-African American GFR(CKD) 78 (>60 ml/min/1.73 sqM); Potassium 3.8 mmol/L (3.5-5.1); Sodium 146 mmol/L (137-145)
[2021-12-01] MEDS: lamoTRIgine 100 MG TAB PO SCH (09:29)
[2021-12-01] MEDS: ESCITALOPRAM 20 MG TAB PO SCH (09:29)
[2021-12-01] MEDS: INSULIN DETEMIR (LEVEMIR) 100 UNIT/ML SYR SQ SCH (09:29)
[2021-12-01] MEDS: HEPARIN SODIUM,PORCINE/PF 5,000 UNIT/0.5 ML SYRINGE SQ SCH ×2 (09:29→20:50)
[2021-12-01] MEDS: ALPRAZolam 0.5 MG TAB PO PRN ×2 (09:30→21:01)
[2021-12-01] MEDS: PANTOPRAZOLE 40 MG/10 ML VIAL IVP SCH (10:08)
[2021-12-01 12:00] LABS: Glucose,Whole Blood 274 mg/dL (75-99)
[2021-12-01 16:48] LABS: Glucose,Whole Blood 169 mg/dL (75-99)
[2021-12-01 20:41] LABS: Glucose,Whole Blood 137 mg/dL (75-99)
--- NOTE | 2021-12-01 21:18 | P.PN ---
Subjective Progress Note Date: 11/30/21 41-year-old female came in altered mental status patient is unresponsive at this time unable to get any history from the patient patient that was found by the daughter in the driveway unresponsive. Patient is found to have highly elevated blood sugars of 11,000 with an anion gap of around 36. Patient is not a diabetic. Patient usually can drive although patient does have some hemorrhoidal issues including ADHD. Patient is subsequently admitted to ICU. Patient has lactic acid of around 5.8 chest x-ray was read as possibly of pneumonia because of which patient was started on Rocephin and maybe some aspiration. Unable to look at the X-ray images at this time, CT of the brain showed an area of low attenuation involving the temporal lobe on the right side probably artifact. Objective - Vital Signs Vital signs: Vital Signs Temp 99.6 F 11/30/21 08:00 Pulse 72 11/30/21 08:00 Resp 18 11/30/21 08:00 BP 129/76 11/30/21 08:00 Pulse Ox 96 11/30/21 08:00 Intake & Output 11/29/21 11/30/21 11/30/21 18:59 06:59 18:59 Intake Total 1565 Output Total 0 Balance 1565 Weight 75.6 kg Intake: IV 300 Azithromycin 500 mg In 250 Sodium Chloride 0.9% 250 ml @ 250 mls/hr IVPB DAILY [facility] Rx#:[id number] cefTRIAXone 1 gm In 50 Sodium Chloride 0.9% 50 ml @ 100 mls/hr IVPB Q24HR [facility] Rx#:[id number] Intake, IV Titration 1025 Amount Dextrose 5% in Water 1, 750 000 ml @ 75 mls/hr IV . [id number] [facility] Rx#:[id number] Potassium Chloride 10 meq 200 In Water For Injection 1 100ml.bag @ 100 mls/hr IVPB Q1H [facility] Rx#: [id number] Sodium Chloride 0.45% 1, 75 000 ml @ 75 mls/hr IV . [id number] [facility] Rx#:[id number] Oral 240 Output: Post Void Residual 0 Other: Voiding Method Toilet Toilet # Voids 1 - Exam -GENERAL: The patient is alert and oriented x 3 , not in any acute distress. Well developed, well nourished. HEENT: Pupils are round and equally reacting to light. EOMI. No scleral icterus. No conjunctival pallor. Normocephalic, atraumatic. No pharyngeal erythema. No thyromegaly. CARDIOVASCULAR: S1 and S2 present. No murmurs, rubs, or gallops. PULMONARY: Chest is clear to auscultation, no wheezing or crackles. ABDOMEN: Soft, nontender, nondistended, normoactive bowel sounds. No palpable organomegaly. MUSCULOSKELETAL: No joint swelling or deformity. EXTREMITIES: No cyanosis, clubbing, or pedal edema. NEUROLOGICAL: Gross neurological examination did not reveal any focal deficits. SKIN: No rashes. no petechiae. - Labs CBC & Chem 7: 11/30/21 10:05 12/01/21 07:43 Labs: Abnormal Lab Results - Last 24 Hours (Table) 11/29/21 11/29/21 11/30/21 Range/Units 16:11 20:55 02:20 WBC (3.8-10.6) k/uL RBC (3.80-5.40) m/uL Hgb (11.4-16.0) gm/dL Hct (34.0-46.0) % Neutrophils # (1.3-7.7) k/uL Potassium (3.5-5.1) mmol/L Chloride (98-107) mmol/L Carbon Dioxide (22-30) mmol/L Creatinine (0.52-1.04) mg/dL Glucose (74-99) mg/dL POC Glucose (mg/dL) 298 H 291 H 296 H (75-99) mg/dL 11/30/21 11/30/21 11/30/21 Range/Units 07:04 10:05 10:05 WBC 11.6 H (3.8-10.6) k/uL RBC 3.37 L (3.80-5.40) m/uL Hgb 10.5 L (11.4-16.0) gm/dL Hct 31.8 L (34.0-46.0) % Neutrophils # 9.8 H (1.3-7.7) k/uL Potassium 3.2 L (3.5-5.1) mmol/L Chloride 116 H (98-107) mmol/L Carbon Dioxide 20 L (22-30) mmol/L Creatinine 1.07 H (0.52-1.04) mg/dL Glucose 267 H (74-99) mg/dL POC Glucose (mg/dL) 222 H (75-99) mg/dL 11/30/21 Range/Units 11:11 WBC (3.8-10.6) k/uL RBC (3.80-5.40) m/uL Hgb (11.4-16.0) gm/dL Hct (34.0-46.0) % Neutrophils # (1.3-7.7) k/uL Potassium (3.5-5.1) mmol/L Chloride (98-107) mmol/L Carbon Dioxide (22-30) mmol/L Creatinine (0.52-1.04) mg/dL Glucose (74-99) mg/dL POC Glucose (mg/dL) 246 H (75-99) mg/dL Microbiology - Last 24 Hours (Table) 11/27/21 14:00 Blood Culture - Preliminary Blood No Growth after 48 hours 11/27/21 14:18 Blood Culture - Preliminary Blood No Growth after 48 hours Assessment and Plan Assessment: - Altered mental status. Secondary to toxic/metabolic encephalopathy. Neurologist service on the case. Improved significantly - New-onset type 2 diabetes mellitus with the diabetic ketoacidosis/resolved. Continue with insulin sliding scale and diabetic diet. Also started on the femur and 2 minutes but please note patient also on D5W at 75 mL/h - Hypernatremia, started on D5W. Follow-up sodium level - Bilateral pneumonia, community-acquired. Continue with ceftriaxone and Zithromax. Pulmonary consult. - ARPIT on CKD. Creatinine improving - History of bipolar, psychiatry consult DVT prophylaxis: Subcutaneous heparin GI prophylaxis: Protonix Prognosis fair
--- NOTE | 2021-12-01 21:23 | P.PN ---
Subjective Progress Note Date: 12/01/21 Principal diagnosis: Altered mental status/Secondary to toxic/metabolic encephalopathy New-onset type 2 diabetes mellitus with the diabetic ketoacidosis Hypernatremia Bilateral pneumonia, community-acquired ARPIT on CKD 41-year-old female came in altered mental status patient is unresponsive at this time unable to get any history from the patient patient that was found by the daughter in the driveway unresponsive. Patient is found to have highly elevated blood sugars of 11,000 with an anion gap of around 36. Patient is not a diabetic. Patient usually can drive although patient does have some hemorrhoidal issues including ADHD. Patient is subsequently admitted to ICU. Patient has lactic acid of around 5.8 chest x-ray was read as possibly of p neumonia because of which patient was started on Rocephin and maybe some aspiration. Unable to look at the X-ray images at this time, CT of the brain showed an area of low attenuation involving the temporal lobe on the right side probably artifact. 12/01/2021 Patient is seen and evaluated with family members at bedside; patient continues to report for appetite with some abdominal discomfort Vital signs are reviewed and stable; blood sugar remains elevated above 250; La ntus increased up to 15 units every morning; we will continue to monitor Accu- Cheks every before meals and at bedtime with insulin sliding scale and continue to make further adjustments in insulin Remains on ceftriaxone and Zithromax for community-acquired pneumonia Possible discharge in next 24-48 hours if remains Objective - Vital Signs Vital signs: Vital Signs Temp 98.7 F 12/01/21 07:29 Pulse 57 L 12/01/21 07:29 Resp 17 12/01/21 07:29 BP 138/86 12/01/21 07:29 Pulse Ox 98 12/01/21 07:29 Intake & Output 11/30/21 12/01/21 12/01/21 18:59 06:59 18:59 Intake Total 1080 Balance 1080 Weight 75.6 kg 75.6 kg Intake: Oral 1080 Other: Voiding Method Toilet # Voids 4 1 - Exam -GENERAL: The patient is alert and oriented x 3 , not in any acute distress. Well developed, well nourished. HEENT: Pupils are round and equally reacting to light. EOMI. No scleral icterus. No conjunctival pallor. Normocephalic, atraumatic. No pharyngeal erythema. No thyromegaly. CARDIOVASCULAR: S1 and S2 present. No murmurs, rubs, or gallops. PULMONARY: Chest is clear to auscultation, no wheezing or crackles. ABDOMEN: Soft, nontender, nondistended, normoactive bowel sounds. No palpable organomegaly. MUSCULOSKELETAL: No joint swelling or deformity. EXTREMITIES: No cyanosis, clubbing, or pedal edema. NEUROLOGICAL: Gross neurological examination did not reveal any focal deficits. SKIN: No rashes. no petechiae. - Labs CBC & Chem 7: 11/30/21 10:05 12/01/21 07:43 Labs: Abnormal Lab Results - Last 24 Hours (Table) 11/30/21 11/30/21 11/30/21 Range/Units 17:06 20:11 21:34 Sodium (137-145) mmol/L Chloride (98-107) mmol/L Carbon Dioxide (22-30) mmol/L Glucose (74-99) mg/dL POC Glucose (mg/dL) 268 H 254 H 228 H (75-99) mg/dL 12/01/21 12/01/21 12/01/21 Range/Units 02:03 06:56 07:43 Sodium 146 H (137-145) mmol/L Chloride 118 H (98-107) mmol/L Carbon Dioxide 18 L (22-30) mmol/L Glucose 280 H (74-99) mg/dL POC Glucose (mg/dL) 188 H 242 H (75-99) mg/dL 12/01/21 Range/Units 11:58 Sodium (137-145) mmol/L Chloride (98-107) mmol/L Carbon Dioxide (22-30) mmol/L Glucose (74-99) mg/dL POC Glucose (mg/dL) 274 H (75-99) mg/dL Microbiology - Last 24 Hours (Table) 11/27/21 14:00 Blood Culture - Preliminary Blood No Growth after 72 hours 11/27/21 14:18 Blood Culture - Preliminary Blood No Growth after 72 hours Assessment and Plan Assessment: - Altered mental status. Secondary to toxic/metabolic encephalopathy. Neurologist service on the case. Improved significantly - New-onset type 2 diabetes mellitus with the diabetic ketoacidosis/resolved. Continue with insulin sliding scale and diabetic diet. Also started on the femur and 2 minutes but please note patient also on D5W at 75 mL/h - Hypernatremia, started on D5W. Follow-up sodium level - Bilateral pneumonia, community-acquired. Continue with ceftriaxone and Zithromax. Pulmonary consult. - ARPIT on CKD. Creatinine improving - History of bipolar, psychiatry consult DVT prophylaxis: Subcutaneous heparin GI prophylaxis: Protonix Prognosis fair
[2021-12-02 01:30] LABS: Glucose,Whole Blood 162 mg/dL (75-99)
[2021-12-02] MEDS: INSULIN ASPART (NovoLOG) 100 UNIT/ML VIAL SQ SCH ×5 (02:17→20:20)
[2021-12-02 06:47] LABS: Glucose,Whole Blood 203 mg/dL (75-99)
[2021-12-02 07:25] VITALS: RESP 17
[2021-12-02] MEDS: PANTOPRAZOLE 40 MG/10 ML VIAL IVP SCH (07:43)
[2021-12-02] MEDS: HEPARIN SODIUM,PORCINE/PF 5,000 UNIT/0.5 ML SYRINGE SQ SCH ×2 (08:34→20:55)
[2021-12-02] MEDS: INSULIN DETEMIR (LEVEMIR) 100 UNIT/ML SYR SQ SCH (08:35)
[2021-12-02] MEDS: lamoTRIgine 100 MG TAB PO SCH (08:36)
[2021-12-02] MEDS: ESCITALOPRAM 20 MG TAB PO SCH (08:36)
[2021-12-02] MEDS: ALPRAZolam 0.5 MG TAB PO PRN ×2 (08:38→22:06)
[2021-12-02 11:15] LABS: Glucose,Whole Blood 310 mg/dL (75-99)
[2021-12-02 17:00] LABS: Glucose,Whole Blood 143 mg/dL (75-99)
--- NOTE | 2021-12-02 17:58 | P.PN ---
Subjective Progress Note Date: 12/02/21 Principal diagnosis: Altered mental status/Secondary to toxic/metabolic encephalopathy New-onset type 2 diabetes mellitus with the diabetic ketoacidosis Hypernatremia Bilateral pneumonia, community-acquired ARPIT on CKD 41-year-old female came in altered mental status patient is unresponsive at this time unable to get any history from the patient patient that was found by the daughter in the driveway unresponsive. Patient is found to have highly elevated blood sugars of 11,000 with an anion gap of around 36. Patient is not a diabetic. Patient usually can drive although patient does have some hemorrhoidal issues including ADHD. Patient is subsequently admitted to ICU. Patient has lactic acid of around 5.8 chest x-ray was read as possibly of p neumonia because of which patient was started on Rocephin and maybe some aspiration. Unable to look at the X-ray images at this time, CT of the brain showed an area of low attenuation involving the temporal lobe on the right side probably artifact. 12/01/2021 Patient is seen and evaluated with family members at bedside; patient continues to report for appetite with some abdominal discomfort Vital signs are reviewed and stable; blood sugar remains elevated above 250; La ntus increased up to 15 units every morning; we will continue to monitor Accu- Cheks every before meals and at bedtime with insulin sliding scale and continue to make further adjustments in insulin Remains on ceftriaxone and Zithromax for community-acquired pneumonia Possible discharge in next 24-48 hours if remains 12/02/2021 Patient is seen and evaluated in room at bedside; planned discharge this morning; however patient reports continuous poor oral intake Labs and blood glucose levels reviewed and remained stable on Lantus 15 units subcu every morning; this was discussed with patient with recommendations for discharge on Lantus and follow-up with primary care physician for further adjustment; patient however reports extreme anxiety and requesting diabetic We will hold discharge for another 24 hours Objective - Vital Signs Vital signs: Vital Signs Temp 98.3 F 12/02/21 14:00 Pulse 67 12/02/21 14:00 Resp 17 12/02/21 14:00 BP 128/81 12/02/21 14:00 Pulse Ox 98 12/02/21 14:00 Intake & Output 12/01/21 12/02/21 12/02/21 18:59 06:59 18:59 Weight 75.6 kg Other: # Voids 4 1 5 # Bowel Movements 1 - Exam -GENERAL: The patient is alert and oriented x 3 , not in any acute distress. Well developed, well nourished. HEENT: Pupils are round and equally reacting to light. EOMI. No scleral icterus. No conjunctival pallor. Normocephalic, atraumatic. No pharyngeal erythema. No thyromegaly. CARDIOVASCULAR: S1 and S2 present. No murmurs, rubs, or gallops. PULMONARY: Chest is clear to auscultation, no wheezing or crackles. ABDOMEN: Soft, nontender, nondistended, normoactive bowel sounds. No palpable organomegaly. MUSCULOSKELETAL: No joint swelling or deformity. EXTREMITIES: No cyanosis, clubbing, or pedal edema. NEUROLOGICAL: Gross neurological examination did not reveal any focal deficits. SKIN: No rashes. no petechiae. - Labs CBC & Chem 7: 11/30/21 10:05 12/01/21 07:43 Labs: Abnormal Lab Results - Last 24 Hours (Table) 12/01/21 12/02/21 12/02/21 Range/Units 20:40 01:28 06:46 POC Glucose (mg/dL) 137 H 162 H 203 H (75-99) mg/dL 12/02/21 12/02/21 Range/Units 11:13 16:59 POC Glucose (mg/dL) 310 H 143 H (75-99) mg/dL Microbiology - Last 24 Hours (Table) 11/27/21 14:00 Blood Culture - Preliminary Blood No Growth after 120 hours 11/27/21 14:18 Blood Culture - Preliminary Blood No Growth after 120 hours Assessment and Plan Assessment: - Altered mental status. Secondary to toxic/metabolic encephalopathy. Sin rologist service on the case. Improved significantly - New-onset type 2 diabetes mellitus with the diabetic ketoacidosis/resolved. Continue with insulin sliding scale and diabetic diet. Also started on the femur and 2 minutes but please note patient also on D5W at 75 mL/h - Hypernatremia, started on D5W. Follow-up sodium level - Bilateral pneumonia, community-acquired. Continue with ceftriaxone and Zithromax. Pulmonary consult. - ARPIT on CKD. Creatinine improving - History of bipolar, psychiatry consult DVT prophylaxis: Subcutaneous heparin GI prophylaxis: Protonix Prognosis fair
[2021-12-02 20:15] LABS: Glucose,Whole Blood 255 mg/dL (75-99)
[2021-12-03 02:02] LABS: Glucose,Whole Blood 120 mg/dL (75-99)
[2021-12-03] MEDS: INSULIN ASPART (NovoLOG) 100 UNIT/ML VIAL SQ SCH ×2 (02:04→08:28)
[2021-12-03 02:21] VITALS: TEMP 98.1
[2021-12-03 06:41] LABS: Glucose,Whole Blood 160 mg/dL (75-99)
[2021-12-03 07:37] VITALS: BP 132/79; PULSE 50
[2021-12-03] MEDS: PANTOPRAZOLE 40 MG/10 ML VIAL IVP SCH (08:27)
[2021-12-03] MEDS: HEPARIN SODIUM,PORCINE/PF 5,000 UNIT/0.5 ML SYRINGE SQ SCH (08:27)
[2021-12-03] MEDS: ESCITALOPRAM 20 MG TAB PO SCH (08:28)
[2021-12-03] MEDS: lamoTRIgine 100 MG TAB PO SCH (08:28)
[2021-12-03] MEDS: INSULIN DETEMIR (LEVEMIR) 100 UNIT/ML SYR SQ SCH (08:28)
[2021-12-03] MEDS: ALPRAZolam 0.5 MG TAB PO PRN (08:38)
[2021-12-03 11:23] LABS: Glucose,Whole Blood 244 mg/dL (75-99)
--- NOTE | 2021-12-04 10:04 | P.DS ---
Providers Date of admission: 11/27/21 10:17 Attending physician: Meghna Eugene Consults: 11/27/21 10:21 Consult Physician Routine Consulting Provider: Franca Tripathi Consult Reason/Comments: DKA Do you want consulting provider notified?: Already Contacted 11/27/21 11:45 Consult Physician Routine Consulting Provider: Kin Morataya Consult Reason/Comments: abnomal ct brain altered mental status Do you want consulting provider notified?: Yes 11/29/21 10:08 Consult Physician Routine Consulting Provider: Niles Bernard Consult Reason/Comments: bipolar meds Do you want consulting provider notified?: Already Contacted Primary care physician: Stated None Hospital Course: Diagnoses: - Altered mental status. Secondary to toxic/metabolic encephalopathy. Complicated resolved and patient back to baseline - New-onset type 2 diabetes mellitus with the diabetic ketoacidosis/resolved. - Hypernatremia, resolved - Bilateral pneumonia, community-acquired. Continue with ceftriaxone and Zithromax. Pulmonary consult. - ARPIT on CKD. Creatinine improving - History of bipolar, psychiatry consult Hospital course: 41-year-old female came in altered mental status patient is unresponsive at this time unable to get any history from the patient patient that was found by the daughter in the driveway unresponsive. Patient is found to have highly elevated blood sugars of 1131 with an anion gap of around 36. Patient is not a diabetic. Now with diabetic ketoacidosis. The patient was admitted to the intensive care unit with pulmonary/critical care team were following her closely. She was treated with protocol with insulin drip per her and then Closed and pressure controlled and currently she is on Levemir 15 units daily, prescription is provided for her upon discharge. Patient also provided with a glucometer with instruction to check her glucose 4 times a day. Also instructed to follow up with form presser as an outpatient and she agrees. Today she is fully awake and oriented and back to baseline. She is hemodynamically stable. She denies chest pain or dyspnea. No abdominal pain. No nausea vomiting or diarrhea. She tolerates diet. No urinary complaints. No fever. No other complaints. Patient she feels she is ready to be discharged. Patient states she could not be discharged yesterday because she was anxious because she did not get her glucometer yesterday but today she feels more, and she is to be discharged. Also patient has been treated for pneumonia with antibiotics and currently she is asymptomatic. Also psychiatrist evaluated the patient and the neurologist in both cleared her for discharge. Psychiatric recommended to discontinue Abilify upon discharge and follow-up with psychiatrist as an outpatient and patient agrees. Problems and management plan were discussed with the patient and he verbalized understanding and acceptance, Mother at bedside upon patient request and she agrees with this recommendation Patient was found stable and can be discharged home in guarded prognosis however he needs follow-up as an outpatient. Patient was instructed to follow up with PCP within one week and patient agrees Patient states she has no medical insurance but she will get Medicaid soon. In the meantime patient contact information for [facility] as provided and she agrees. Otherwise she would call her medical insurance provider to find nearby PCP within one week as instructed to her and she agrees. Patient was instructed to follow up with machine loader Dr. Lynch N2 to [address] presser [address]. lin, Dr. cShulte in 7-10 days and she agrees. Patient says that her psychiatrist is Dr. Uribe and she agrees to follow up with him within one week. Physical exam Gen: patient is a AAOx3, no distress CVS: S1-S2, RRR, no murmur Lungs: B/L CTA, no wheezing Abdomen: soft, no distention, no tenderness, positive bowel sounds Extremity: no leg edema or induration Time spent more than 35 minutes Patient Condition at Discharge: Serious Plan - Discharge Summary Discharge Rx Participant: No New Discharge Prescriptions: New Insulin Detemir (Levemir) [Levemir] 15 unit SQ DAILY@0700 30 Days #10 ml Cefuroxime Axetil [Ceftin] 500 mg PO BID 7 Days #14 tab Continue lamoTRIgine [LaMICtal] 100 mg PO DAILY ALPRAZolam [Xanax] 0.5 mg PO HS ALPRAZolam [Xanax] 1 mg PO DAILY Changed Escitalopram [Lexapro] 20 mg PO DAILY #30 tab Discontinued ARIPiprazole [Abilify] 10 mg PO DAILY Discharge Medication List ALPRAZolam [Xanax] 0.5 mg PO HS 11/27/21 [History] ALPRAZolam [Xanax] 1 mg PO DAILY 11/27/21 [History] lamoTRIgine [LaMICtal] 100 mg PO DAILY 11/27/21 [History] Insulin Detemir (Levemir) [Levemir] 15 unit SQ DAILY@0700 30 Days #10 ml 12/02/21 [Rx] Escitalopram [Lexapro] 20 mg PO DAILY #30 tab 12/03/21 [Rx] Cefuroxime Axetil [Ceftin] 500 mg PO BID 7 Days #14 tab 12/04/21 [Rx] Follow up Appointment(s)/Referral(s): Franca Tripathi MD [STAFF PHYSICIAN] - 12/25/21 3:30 pm (Qa Developer,we recommended to repeat chest x-ray in 4 weeks) Bassam Lin MD [REFERRING] - 10 Days (Registry Rn, diabetes mellitus PCP to refer patient before scheduling appointment ) Zelalem Larsen MD [Family Provider] - 1 Week (patient to call and make appointment after discharge ) Diabetes Education,Alejandro CHAHAL [NON-STAFF] - As Needed (patient to call and make appointment after discharge ) None,Stated [Primary Care Provider] [facility] - 1 Week Bella Schulte MD [STAFF PHYSICIAN] - 10 Days (Registry Rn, diabetes mellitus) Patient Instructions/Handouts: Diabetic Ketoacidosis (DC), Type 2 Diabetes in Adults: New Diagnosis (DC) Activity/Diet/Wound Care/Special Instructions: we recommend to check your glucose 4 times a day before each meal and at bed time , keep the results in a log book and bring it to your doctor upon your appointment date if your glucose is less than 70 or more than 400 then call 911 and come to emergency room heart healthy diet , low carbohydrate 1600 k librado per day activity is restricted till you see your doctor Please call your medical insurance provider to find a nearby PCP, primary care physician, please call to make an appointment within 1 week Discharge Disposition: HOME SELF-CARE
== END 2021-12-03 12:15 | disposition home or self-care (01) | DRG 637 ==
LOC: EC 08:19 → 2SICU 10:17 → 4SSUR 11-29 18:54
PROVIDERS: ADMIT Hospitalist; ATTEND Hospitalist
DX: E11.10 Type 2 diabetes mellitus with ketoacidosis without coma (principal); G92.8 Other toxic encephalopathy; J69.0 Pneumonitis due to inhalation of food and vomit; N17.9 Acute kidney failure, unspecified; F84.0 Autistic disorder; E87.0 Hyperosmolality and hypernatremia; T68.XXXA Hypothermia, initial encounter; F31.9 Bipolar disorder, unspecified; E86.0 Dehydration; D75.89 Other specified diseases of blood and blood-forming organs; F90.9 Attention-deficit hyperactivity disorder, unspecified type; F41.1 Generalized anxiety disorder; F17.200 Nicotine dependence, unspecified, uncomplicated; Z71.6 Tobacco abuse counseling; Z79.899 Other long term (current) drug therapy; Z98.891 History of uterine scar from previous surgery; Z87.39 Personal history of other diseases of the musculoskeletal system and connective tissue; Z86.79 Personal history of other diseases of the circulatory system; Z56.0 Unemployment, unspecified; Z98.890 Other specified postprocedural states; Z83.3 Family history of diabetes mellitus; Z88.0 Allergy status to penicillin; Z80.3 Family history of malignant neoplasm of breast; Z83.49 Family history of other endocrine, nutritional and metabolic diseases
CPT/HCPCS: 36415; 36600; 70450; 70551; 71045; 80048; 80053; 80061; 80306; 80320; 81001; 82009; 82550; 82607; 82746; 82803; 82805; 83036; 83605; 83735; 83930; 84100; 84132; 84484; 84703; 85025; 85610; 85730; 87040; 93005; 95819; 96360; 96361; 99291

== ENCOUNTER 2022-04-17 20:52 | Inpatient (IN) | payer OTHER ==
[2022-04-17] MEDS ORDERED: SODIUM CHLORIDE 0.9% 1,000 ML IV ONE (21:27)
--- NOTE | 2022-04-17 22:31 | ED ---
General Adult HPI - General Source: patient, family, RN notes reviewed, old records reviewed Mode of arrival: ambulatory Limitations: no limitations <Camilo Escobedo - Last Filed: 04/19/22 15:10> <Abhi Campos - Last Filed: 04/23/22 00:33> - General Chief complaint: Nausea/Vomiting/Diarrhea Stated complaint: high sugar Time Seen by Provider: 04/17/22 21:14 - History of Present Illness Initial comments: 41-year-old female history of type 2 diabetes for evaluation of elevated blood sugar, vomiting, weakness. Symptoms have been progressive over several days. She has a history of diabetic ketoacidosis in the past. She states are similar to previous episode of DKA. Patient has not been able to keep much down over the past several days she's also had some diarrhea and low-grade fever. No abdominal pain. (Camilo Escobedo) - Related Data Home Medications Medication Instructions Recorded Confirmed ALPRAZolam [Xanax] 0.5 mg PO HS PRN 11/27/21 04/18/22 ALPRAZolam [Xanax] 1 mg PO DAILY 11/27/21 04/18/22 lamoTRIgine [LaMICtal] 100 mg PO DAILY 11/27/21 04/18/22 Escitalopram [Lexapro] 40 mg PO DAILY 04/18/22 04/18/22 Previous Rx's Medication Instructions Recorded Insulin Aspart See Rx Instructions .ROUTE 04/20/22 .COMPLEX #10 ml Insulin Detemir (Levemir) [Levemir] 7 unit SQ BID 30 Days #1 each 04/20/22 Allergies Allergy/AdvReac Type Severity Reaction Status Date / Time Penicillins Allergy Unknown Verified 04/18/22 06:49 codeine AdvReac Nausea & Verified 04/18/22 06:49 Vomiting Review of Systems ROS Other: All systems not noted in ROS Statement are negative. <Camilo Escobedo - Last Filed: 04/19/22 15:10> ROS Other: All systems not noted in ROS Statement are negative. <Abhi Campos - Last Filed: 04/23/22 00:33> ROS Statement: Those systems with pertinent positive or pertinent negative responses have been documented in the HPI. Past Medical History Past Medical History: Diabetes Mellitus Additional Past Medical History / Comment(s): Recently complained of eyesight problem. History of Any Multi-Drug Resistant Organisms: None Reported Past Surgical History: Section, Orthopedic Surgery Additional Past Surgical History / Comment(s): L wrist ganglion cystectomy. Past Anesthesia/Blood Transfusion Reactions: No Reported Reaction Past Psychological History: Anxiety, Bipolar, Depression Smoking Status: Former smoker Past Alcohol Use History: None Reported Past Drug Use History: Marijuana - Past Family History Father Family Medical History: Vascular Disorder Additional Family Medical History / Comment(s): AAA, has pacemaker. Paternal greatgrandmother had diabetes. Mother Family Medical History: Cancer, Thyroid Disorder Additional Family Medical History / Comment(s): Grave's disease, breast cancer twice. Maternal grandmother had diabetes later in life. <Camilo Escobedo - Last Filed: 04/19/22 15:10> General Exam Limitations: no limitations General appearance: alert, in no apparent distress Head exam: Present: atraumatic, normocephalic Eye exam: Present: normal appearance, PERRL ENT exam: Present: mucous membranes dry Neck exam: Present: normal inspection Respiratory exam: Present: normal lung sounds bilaterally. Absent: respiratory distress, wheezes Cardiovascular Exam: Present: regular rate, normal rhythm GI/Abdominal exam: Present: soft. Absent: distended, tenderness, guarding Extremities exam: Present: normal inspection, normal capillary refill. Absent: pedal edema Neurological exam: Present: alert, oriented X3, CN II-XII intact. Absent: motor sensory deficit Psychiatric exam: Present: normal affect, normal mood Skin exam: Present: warm, dry, intact. Absent: cyanosis, diaphoretic <Camilo Escobedo - Last Filed: 04/19/22 15:10> Course <Camilo Escobedo - Last Filed: 04/19/22 15:10> Vital Signs 04/17/22 04/18/22 04/18/22 21:05 03:00 06:41 Temperature 98.7 F 98.4 F Pulse Rate 94 70 56 L Respiratory 22 16 16 Rate Blood Pressure 140/92 143/84 143/74 O2 Sat by Pulse 98 98 96 Oximetry - Reevaluation(s) Reevaluation #1: 04/17/22 2300 Care Signed out to Dr. Campos awaiting lab testing and re-eval. (Camilo Escobedo) Medical Decision Making - Lab Data Result diagrams: 04/17/22 22:20 <Camilo Escobedo - Last Filed: 04/19/22 15:10> - Lab Data Result diagrams: 04/20/22 08:57 04/20/22 08:57 <UmaAbhi pozo - Last Filed: 04/23/22 00:33> - Lab Data Lab Results 04/17/22 04/17/22 04/17/22 Range/Units 21:15 22:20 22:20 WBC 6.9 (3.8-10.6) k/uL RBC 4.80 (3.80-5.40) m/uL Hgb 14.5 (11.4-16.0) gm/dL Hct 46.0 (34.0-46.0) % MCV 95.9 (80.0-100.0) fL MCH 30.3 (25.0-35.0) pg MCHC 31.6 (31.0-37.0) g/dL RDW 13.5 (11.5-15.5) % Plt Count 339 (150-450) k/uL MPV 8.6 Neutrophils % 84 % Lymphocytes % 9 % Monocytes % 5 % Eosinophils % 0 % Basophils % 1 % Neutrophils # 5.8 (1.3-7.7) k/uL Lymphocytes # 0.6 L (1.0-4.8) k/uL Monocytes # 0.4 (0-1.0) k/uL Eosinophils # 0.0 (0-0.7) k/uL Basophils # 0.0 (0-0.2) k/uL Hypochromasia Slight Sodium 138 (137-145) mmol/L Potassium 6.0 H (3.5-5.1) mmol/L Chloride 101 (98-107) mmol/L Carbon Dioxide 7 L* (22-30) mmol/L Anion Gap 30 mmol/L BUN 16 (7-17) mg/dL Creatinine 1.06 H (0.52-1.04) mg/dL Est GFR (CKD-EPI)AfAm 76 (>60 ml/min/1.73 sqM) Est GFR (CKD-EPI)NonAf 66 (>60 ml/min/1.73 sqM) Glucose 506 H* (74-99) mg/dL Calcium 10.6 H (8.4-10.2) mg/dL Magnesium 1.8 (1.6-2.3) mg/dL Total Bilirubin 0.5 (0.2-1.3) mg/dL AST 43 H (14-36) U/L ALT 31 (4-34) U/L Alkaline Phosphatase 78 (38-126) U/L Total Protein 9.5 H (6.3-8.2) g/dL Albumin 5.6 H (3.5-5.0) g/dL Urine Color Light Yellow Urine Appearance Clear (Clear) Urine pH 5.5 (5.0-8.0) Ur Specific Ramona 1.023 (1.001-1.035) Urine Protein 2+ H (Negative) Urine Glucose (UA) 4+ H (Negative) Urine Ketones 4+ H (Negative) Urine Blood Large H (Negative) Urine Nitrite Negative (Negative) Urine Bilirubin Negative (Negative) Urine Urobilinogen <2.0 (<2.0) mg/dL Ur Leukocyte Esterase Negative (Negative) Urine RBC >182 H (0-5) /hpf Urine WBC 2 (0-5) /hpf Ur Squamous Epith Cells 2 (0-4) /hpf Urine Mucus Rare H (None) /hpf Acetone, Qual Positive (Negative) Coronavirus (PCR) (Not Detectd) 04/17/22 Range/Units 22:48 WBC (3.8-10.6) k/uL RBC (3.80-5.40) m/uL Hgb (11.4-16.0) gm/dL Hct (34.0-46.0) % MCV (80.0-100.0) fL MCH (25.0-35.0) pg MCHC (31.0-37.0) g/dL RDW (11.5-15.5) % Plt Count (150-450) k/uL MPV Neutrophils % % Lymphocytes % % Monocytes % % Eosinophils % % Basophils % % Neutrophils # (1.3-7.7) k/uL Lymphocytes # (1.0-4.8) k/uL Monocytes # (0-1.0) k/uL Eosinophils # (0-0.7) k/uL Basophils # (0-0.2) k/uL Hypochromasia Sodium (137-145) mmol/L Potassium (3.5-5.1) mmol/L Chloride (98-107) mmol/L Carbon Dioxide (22-30) mmol/L Anion Gap mmol/L BUN (7-17) mg/dL Creatinine (0.52-1.04) mg/dL Est GFR (CKD-EPI)AfAm (>60 ml/min/1.73 sqM) Est GFR (CKD-EPI)NonAf (>60 ml/min/1.73 sqM) Glucose (74-99) mg/dL Calcium (8.4-10.2) mg/dL Magnesium (1.6-2.3) mg/dL Total Bilirubin (0.2-1.3) mg/dL AST (14-36) U/L ALT (4-34) U/L Alkaline Phosphatase (38-126) U/L Total Protein (6.3-8.2) g/dL Albumin (3.5-5.0) g/dL Urine Color Urine Appearance (Clear) Urine pH (5.0-8.0) Ur Specific Ramona (1.001-1.035) Urine Protein (Negative) Urine Glucose (UA) (Negative) Urine Ketones (Negative) Urine Blood (Negative) Urine Nitrite (Negative) Urine Bilirubin (Negative) Urine Urobilinogen (<2.0) mg/dL Ur Leukocyte Esterase (Negative) Urine RBC (0-5) /hpf Urine WBC (0-5) /hpf Ur Squamous Epith Cells (0-4) /hpf Urine Mucus (None) /hpf Acetone, Qual (Negative) Coronavirus (PCR) Detected A (Not Detectd) Critical Care Time Critical Care Time: Yes (30 minutes) <Abhi Campos - Last Filed: 04/23/22 00:33> Disposition <Camiol Escobedo - Last Filed: 04/19/22 15:10> Is patient prescribed a controlled substance at d/c from ED?: No <Abhi Campos - Last Filed: 04/23/22 00:33> Clinical Impression: DKA (diabetic ketoacidosis), COVID-19 Disposition: ADMITTED IP TO THIS HOSP Condition: Fair
[2022-04-17 22:45] LABS: Basophils % (A) 1 %; Eosinophils % (A) 0 %; HGB 14.5 gm/dL (11.4-16.0); Hypochromasia Slight; Lymphocytes # (A) 0.6 k/uL (1.0-4.8); Lymphocytes % (A) 9 %; MCH 30.3 pg (25.0-35.0); MCHC 31.6 g/dL (31.0-37.0); MCV 95.9 fL (80.0-100.0); Mean Platelet Volume 8.6; Monocytes # (A) 0.4 k/uL (0-1.0); Monocytes % (A) 5 %; Neutrophils # (A) 5.8 k/uL (1.3-7.7); Neutrophils % (A) 84 %; Platelet Count 339 k/uL (150-450); RDW 13.5 % (11.5-15.5); WBC 6.9 k/uL (3.8-10.6)
[2022-04-17] MEDS ORDERED: ONDANSETRON 4 MG/2 ML VIAL IVP STA (22:48)
[2022-04-17 23:10] LABS: ALT 31 U/L (4-34); AST 43 U/L (14-36); African American GFR (CKD) 76 (>60 ml/min/1.73 sqM); Albumin 5.6 g/dL (3.5-5.0); Alkaline Phosphatase 78 U/L (38-126); Anion Gap 30 mmol/L; Blood Urea Nitrogen 16 mg/dL (7-17); Calcium 10.6 mg/dL (8.4-10.2); Chloride 101 mmol/L (98-107); Magnesium 1.8 mg/dL (1.6-2.3); Non-African American GFR(CKD) 66 (>60 ml/min/1.73 sqM); Sodium 138 mmol/L (137-145); Total Bilirubin 0.5 mg/dL (0.2-1.3); Total Protein 9.5 g/dL (6.3-8.2)
[2022-04-17 23:22] LABS: Carbon Dioxide 7 mmol/L (22-30); Glucose 506 mg/dL (74-99)
[2022-04-17] MEDS ORDERED: INSULIN REGULAR BOLUS (FROM DRIP BAG) IV ONE (23:36)
[2022-04-18] MEDS: SODIUM CHLORIDE 0.9% 1,000 ML IV SCH ×2 (00:18→18:13)
[2022-04-18 00:27] LABS: Appearance,Urine Clear (Clear); Bilirubin,Urine Negative (Negative); Blood,Urine Large (Negative); Color,Urine Light Yellow; Glucose,Urine (UA) 4+ (Negative); Leukocyte Esterase,Urine Negative (Negative); Mucus,Urine Rare /hpf; Nitrite,Urine Negative (Negative); PH, Urine 5.5 (5.0-8.0); Protein,Urine 2+ (Negative); RBC,Urine >182 /hpf (0-5); Specific Gravity,Urine 1.023 (1.001-1.035); Squamous Epithelial Cell,Urine 2 /hpf (0-4); Urobilinogen,Urine <2.0 mg/dL (<2.0); WBC,Urine 2 /hpf (0-5)
[2022-04-18] MEDS: INSULIN REGULAR 100 UNIT in SODIUM CHLORIDE 0.9% 100 ML IV SCH ×2 (00:29→10:10)
[2022-04-18 00:49] LABS: Ketones,Urine 4+ (Negative)
[2022-04-18 01:17] LABS: Phosphorus 4.1 mg/dL (2.5-4.5)
[2022-04-18 01:32] LABS: Glucose,Whole Blood 331 mg/dL (70-110)
[2022-04-18 02:33] LABS: Glucose,Whole Blood 288 mg/dL (70-110)
[2022-04-18 03:37] LABS: Glucose,Whole Blood 250 mg/dL (70-110)
[2022-04-18 04:29] LABS: Glucose,Whole Blood 226 mg/dL (70-110)
[2022-04-18 04:29] LABS: Phosphorus 1.4 mg/dL (2.5-4.5); Potassium 4.7 mmol/L (3.5-5.1)
[2022-04-18] MEDS ORDERED: DEXTROSE 5%-0.45% NACL 1,000 ML IV SCH (05:00)
[2022-04-18 05:33] LABS: Glucose,Whole Blood 205 mg/dL (70-110)
[2022-04-18] MEDS ORDERED: Potassium Replacement Protocol 1 EACH MISC MISCELLANE PRN (05:36)
[2022-04-18] MEDS ORDERED: Magnesium Replacement Protocol 1 EACH MISC MISCELLANE PRN (05:36)
[2022-04-18] MEDS ORDERED: ONDANSETRON 4 MG/2 ML VIAL IVP PRN (05:39)
[2022-04-18] MEDS ORDERED: ACETAMINOPHEN TAB 325 MG TAB PO PRN (05:39)
--- NOTE | 2022-04-18 06:04 | P.HPIM ---
History of Present Illness H&P Date: 04/18/22 Chief Complaint: Confusion generalized weakness elevated sugar 41-year-old female with diabetes mellitus newly diagnosed Patient comes in with few day history of worsening confusion generalized weakness and gradually elevating blood sugar. Patient was recently diagnosed wi th diabetes back in November of this year when she presented with DKA she lost follow-up with her primary care physician she's finding difficulties with her insulin regimen. She claims that she continues to take her metformin and insulin as prescribed but she doesn't believe it's enough. Her sugar usually running high over the past few days she wasn't feeling well her daughter was diagnosed with Covid she tested for Covid on Friday and was negative that was 3 days ago. However she continued to get worse with generalized weakness and some confusion abdominal pain and feeling nauseous with occasional vomiting she was also having some diarrhea otherwise she denies any coughing sore throat denies any fevers or chills denies any changes in her urinary habits denies any GI bleeding She came in today as her sugar continues to go up seeking help in the ED she was diagnosed with DKA after obtaining her blood work she is admitted for DKA management Review of Systems Pertinent positives as noted in HPI. All other systems were reviewed and are negative Past Medical History Past Medical History: Diabetes Mellitus Additional Past Medical History / Comment(s): Recently complained of eyesight problem. History of Any Multi-Drug Resistant Organisms: None Reported Past Surgical History: Section, Orthopedic Surgery Additional Past Surgical History / Comment(s): L wrist ganglion cystectomy. Past Anesthesia/Blood Transfusion Reactions: No Reported Reaction Past Psychological History: Anxiety, Bipolar, Depression Smoking Status: Former smoker Past Alcohol Use History: None Reported Past Drug Use History: Marijuana - Past Family History Father Family Medical History: Vascular Disorder Additional Family Medical History / Comment(s): AAA, has pacemaker. Paternal greatgrandmother had diabetes. Mother Family Medical History: Cancer, Thyroid Disorder Additional Family Medical History / Comment(s): Grave's disease, breast cancer twice. Maternal grandmother had diabetes later in life. Medications and Allergies Home Medications Medication Instructions Recorded Confirmed Type ALPRAZolam [Xanax] 0.5 mg PO HS 11/27/21 11/27/21 History ALPRAZolam [Xanax] 1 mg PO DAILY 11/27/21 11/27/21 History lamoTRIgine [LaMICtal] 100 mg PO DAILY 11/27/21 11/27/21 History Insulin Detemir (Levemir) [Levemir] 15 unit SQ DAILY@0700 30 Days #10 12/02/21 Rx ml Escitalopram [Lexapro] 20 mg PO DAILY #30 tab 12/03/21 Rx cefUROXime axetiL [Ceftin] 500 mg PO BID 7 Days #14 tab 12/04/21 Rx Allergies Allergy/AdvReac Type Severity Reaction Status Date / Time Penicillins Allergy Unknown Verified 04/17/22 21:09 Physical Exam Vitals: Vital Signs Temp Pulse Resp BP Pulse Ox 04/18/22 03:00 98.4 F 70 16 143/84 98 04/17/22 21:05 98.7 F 94 22 140/92 98 Intake and Output 04/17/22 04/17/22 04/18/22 14:59 22:59 06:59 Other: Weight 68.039 kg Constitutional: No acute distress, conversant, pleasant Eyes: Anicteric sclerae, moist conjunctiva, Pupils equal round reactive to light ENMT: NC/AT Oropharynx clear, no erythema, or exudates Neck: Supple, FROM, no masses, or JVD No carotid bruits No thyromegaly Lungs: Clear to auscultation Clear to percussion Normal respiratory effort, no accessory muscle use Cardiovascular: Heart regular in rate and rhythm, No murmurs, gallops, or rubs No peripheral edema Abdominal: Soft Nontender, no guarding, rebound or rigidity Abdomen moving with respiration Normoactive bowel sounds No hepatomegaly, No splenomegaly No palpable mass No abdominal wall hernia noted Skin: Normal temperature, tone, texture, turgor No induration No subcutaneous nodules No rash, lesions No ulcers Extremities: No digital cyanosis No clubbing Pedal pulses intact and symmetrical Radial pulses intact and symmetrical No calf tenderness Psychiatric: Alert and oriented to person, place and time Appropriate affect fair judgement Neuro Muscles Strength 5/5 in all 4 extremities Sensation to light touch grossly present throughout Cranial nerves II-XII grossly intact No focal sensory deficits Lymphatics: no palpable cervical or supraclavicular , or inguinal lymph nodes Results CBC & Chem 7: 04/17/22 22:20 04/18/22 04:01 Labs: Abnormal Lab Results - Last 24 Hours (Table) 04/17/22 04/17/22 04/17/22 Range/Units 21:15 22:20 22:20 Lymphocytes # 0.6 L (1.0-4.8) k/uL Potassium 6.0 H (3.5-5.1) mmol/L Chloride (98-107) mmol/L Carbon Dioxide 7 L* (22-30) mmol/L Creatinine 1.06 H (0.52-1.04) mg/dL Glucose 506 H* (74-99) mg/dL POC Glucose (mg/dL) (70-110) mg/dL Calcium 10.6 H (8.4-10.2) mg/dL Phosphorus (2.5-4.5) mg/dL AST 43 H (14-36) U/L Total Protein 9.5 H (6.3-8.2) g/dL Albumin 5.6 H (3.5-5.0) g/dL Urine Protein 2+ H (Negative) Urine Glucose (UA) 4+ H (Negative) Urine Ketones 4+ H (Negative) Urine Blood Large H (Negative) Urine RBC >182 H (0-5) /hpf Urine Mucus Rare H (None) /hpf Coronavirus (PCR) (Not Detectd) 04/17/22 04/18/22 04/18/22 Range/Units 22:48 00:01 01:30 Lymphocytes # (1.0-4.8) k/uL Potassium 6.0 H (3.5-5.1) mmol/L Chloride (98-107) mmol/L Carbon Dioxide 8 L* (22-30) mmol/L Creatinine (0.52-1.04) mg/dL Glucose 455 H (74-99) mg/dL POC Glucose (mg/dL) 331 H (70-110) mg/dL Calcium (8.4-10.2) mg/dL Phosphorus (2.5-4.5) mg/dL AST (14-36) U/L Total Protein (6.3-8.2) g/dL Albumin (3.5-5.0) g/dL Urine Protein (Negative) Urine Glucose (UA) (Negative) Urine Ketones (Negative) Urine Blood (Negative) Urine RBC (0-5) /hpf Urine Mucus (None) /hpf Coronavirus (PCR) Detected A (Not Detectd) 04/18/22 04/18/22 04/18/22 Range/Units 02:30 03:34 04:01 Lymphocytes # (1.0-4.8) k/uL Potassium (3.5-5.1) mmol/L Chloride 108 H (98-107) mmol/L Carbon Dioxide 9 L* (22-30) mmol/L Creatinine (0.52-1.04) mg/dL Glucose 259 H (74-99) mg/dL POC Glucose (mg/dL) 288 H 250 H (70-110) mg/dL Calcium (8.4-10.2) mg/dL Phosphorus 1.4 L (2.5-4.5) mg/dL AST (14-36) U/L Total Protein (6.3-8.2) g/dL Albumin (3.5-5.0) g/dL Urine Protein (Negative) Urine Glucose (UA) (Negative) Urine Ketones (Negative) Urine Blood (Negative) Urine RBC (0-5) /hpf Urine Mucus (None) /hpf Coronavirus (PCR) (Not Detectd) 04/18/22 04/18/22 Range/Units 04:28 05:32 Lymphocytes # (1.0-4.8) k/uL Potassium (3.5-5.1) mmol/L Chloride (98-107) mmol/L Carbon Dioxide (22-30) mmol/L Creatinine (0.52-1.04) mg/dL Glucose (74-99) mg/dL POC Glucose (mg/dL) 226 H 205 H (70-110) mg/dL Calcium (8.4-10.2) mg/dL Phosphorus (2.5-4.5) mg/dL AST (14-36) U/L Total Protein (6.3-8.2) g/dL Albumin (3.5-5.0) g/dL Urine Protein (Negative) Urine Glucose (UA) (Negative) Urine Ketones (Negative) Urine Blood (Negative) Urine RBC (0-5) /hpf Urine Mucus (None) /hpf Coronavirus (PCR) (Not Detectd) Assessment and Plan Assessment: DKA Nothing by mouth Aggressive IV fluid hydration Follow DKA pathway Initiated on insulin drip Check blood sugars every hour Check electrolytes every 4 hours Covid positive Patient not requiring oxygen Supportive care Check d-dimer Patient not vaccinated DVT prophylaxis Lovenox subcu Full code
[2022-04-18 06:31] LABS: Glucose,Whole Blood 216 mg/dL (70-110)
[2022-04-18 07:43] LABS: Glucose,Whole Blood 221 mg/dL (70-110)
[2022-04-18 08:37] LABS: Glucose,Whole Blood 222 mg/dL (70-110)
[2022-04-18 09:25] LABS: African American GFR (CKD) >90 (>60 ml/min/1.73 sqM); Anion Gap 15 mmol/L; Blood Urea Nitrogen 16 mg/dL (7-17); Carbon Dioxide 15 mmol/L (22-30); Chloride 109 mmol/L (98-107); Glucose 216 mg/dL (74-99); Non-African American GFR(CKD) 85 (>60 ml/min/1.73 sqM); Potassium 4.7 mmol/L (3.5-5.1); Sodium 139 mmol/L (137-145)
[2022-04-18 09:59] LABS: Glucose,Whole Blood 257 mg/dL (70-110)
[2022-04-18] MEDS: PANTOPRAZOLE 40 MG TABLET PO SCH (10:11)
[2022-04-18] MEDS: ENOXAPARIN 40 MG/0.4 ML SYRINGE SQ SCH (10:11)
[2022-04-18 10:34] LABS: Glucose,Whole Blood 241 mg/dL (70-110)
[2022-04-18 11:39] LABS: Glucose,Whole Blood 223 mg/dL (70-110)
[2022-04-18 11:50] VITALS: BMI 22.1
[2022-04-18 12:25] LABS: Glucose,Whole Blood 209 mg/dL (70-110)
[2022-04-18] MEDS ORDERED: ALPRAZolam 0.5 MG TAB PO PRN (12:55)
[2022-04-18 13:06] LABS: African American GFR (CKD) >90 (>60 ml/min/1.73 sqM); Anion Gap 13 mmol/L; Blood Urea Nitrogen 15 mg/dL (7-17); Carbon Dioxide 17 mmol/L (22-30); Chloride 108 mmol/L (98-107); Glucose 201 mg/dL (74-99); Non-African American GFR(CKD) 85 (>60 ml/min/1.73 sqM); Potassium 4.2 mmol/L (3.5-5.1); Sodium 138 mmol/L (137-145)
[2022-04-18] MEDS ORDERED: Phosphorus Replacement Protoco 1 EACH MISC MISCELLANE PRN (13:43)
[2022-04-18 13:54] LABS: Glucose,Whole Blood 163 mg/dL (70-110)
[2022-04-18 14:58] LABS: Glucose,Whole Blood 134 mg/dL (70-110)
[2022-04-18 15:47] LABS: Glucose,Whole Blood 100 mg/dL (70-110)
[2022-04-18 16:26] LABS: Glucose,Whole Blood 96 mg/dL (70-110)
[2022-04-18 17:51] LABS: Glucose,Whole Blood 136 mg/dL (70-110)
[2022-04-18 18:32] LABS: Glucose,Whole Blood 153 mg/dL (70-110)
[2022-04-18] MEDS: SODIUM PHOSPHATE 10 MMOL in SODIUM CHLORIDE 0.9% 250 ML IVPB SCH ×2 (18:47→21:16)
[2022-04-18] MEDS: lamoTRIgine 100 MG TAB PO SCH (18:48)
[2022-04-18] MEDS: D5-0.45% NACL WITH KCL 20MEQ/L 1,000 ML IV SCH (18:48)
[2022-04-18] MEDS: ESCITALOPRAM 20 MG TAB PO SCH (18:48)
[2022-04-18 20:11] LABS: Glucose,Whole Blood 160 mg/dL (70-110)
[2022-04-18 20:23] LABS: African American GFR (CKD) >90 (>60 ml/min/1.73 sqM); Anion Gap 16 mmol/L; Blood Urea Nitrogen 15 mg/dL (7-17); Calcium 9.8 mg/dL (8.4-10.2); Carbon Dioxide 15 mmol/L (22-30); Chloride 106 mmol/L (98-107); Glucose 160 mg/dL (74-99); Non-African American GFR(CKD) 84 (>60 ml/min/1.73 sqM); Potassium 4.3 mmol/L (3.5-5.1); Sodium 137 mmol/L (137-145)
[2022-04-18 22:22] LABS: Glucose,Whole Blood 145 mg/dL (70-110)
[2022-04-18 23:30] LABS: Glucose,Whole Blood 153 mg/dL (70-110)
[2022-04-19 00:03] LABS: Glucose,Whole Blood 161 mg/dL (70-110)
[2022-04-19] MEDS: SODIUM PHOSPHATE 10 MMOL in SODIUM CHLORIDE 0.9% 250 ML IVPB SCH ×3 (00:48→12:23)
[2022-04-19] MEDS: SODIUM CHLORIDE 0.9% 1,000 ML IV SCH ×4 (00:54→15:20)
[2022-04-19 01:07] LABS: Glucose,Whole Blood 184 mg/dL (70-110)
[2022-04-19] MEDS: D5-0.45% NACL WITH KCL 20MEQ/L 1,000 ML IV SCH ×3 (01:14→09:59)
[2022-04-19 01:26] LABS: African American GFR (CKD) >90 (>60 ml/min/1.73 sqM); Anion Gap 14 mmol/L; Blood Urea Nitrogen 14 mg/dL (7-17); Calcium 9.1 mg/dL (8.4-10.2); Carbon Dioxide 16 mmol/L (22-30); Chloride 107 mmol/L (98-107); Glucose 175 mg/dL (74-99); Non-African American GFR(CKD) 81 (>60 ml/min/1.73 sqM); Potassium 3.7 mmol/L (3.5-5.1); Sodium 137 mmol/L (137-145)
[2022-04-19 02:07] LABS: Glucose,Whole Blood 179 mg/dL (70-110)
[2022-04-19 03:18] LABS: Glucose,Whole Blood 217 mg/dL (70-110)
[2022-04-19 04:20] LABS: Glucose,Whole Blood 250 mg/dL (70-110)
[2022-04-19 04:22] LABS: Glucose,Whole Blood 232 mg/dL (70-110)
[2022-04-19 05:06] LABS: Glucose,Whole Blood 270 mg/dL (70-110)
[2022-04-19 06:10] LABS: Glucose,Whole Blood 279 mg/dL (70-110)
[2022-04-19] MEDS: PANTOPRAZOLE 40 MG TABLET PO SCH (06:16)
[2022-04-19 06:46] LABS: African American GFR (CKD) >90 (>60 ml/min/1.73 sqM); Anion Gap 11 mmol/L; Blood Urea Nitrogen 11 mg/dL (7-17); Calcium 8.8 mg/dL (8.4-10.2); Carbon Dioxide 17 mmol/L (22-30); Chloride 107 mmol/L (98-107); Glucose 291 mg/dL (74-99); Non-African American GFR(CKD) 83 (>60 ml/min/1.73 sqM); Potassium 3.8 mmol/L (3.5-5.1); Sodium 135 mmol/L (137-145)
[2022-04-19 06:57] LABS: Glucose,Whole Blood 298 mg/dL (70-110)
[2022-04-19 08:13] LABS: Glucose,Whole Blood 275 mg/dL (70-110)
[2022-04-19 08:57] LABS: Glucose,Whole Blood 233 mg/dL (70-110)
[2022-04-19] MEDS: ENOXAPARIN 40 MG/0.4 ML SYRINGE SQ SCH (10:00)
[2022-04-19] MEDS: ESCITALOPRAM 20 MG TAB PO SCH (10:00)
[2022-04-19] MEDS: lamoTRIgine 100 MG TAB PO SCH (10:00)
[2022-04-19] MEDS: ALPRAZolam 1 MG TAB PO SCH (10:00)
[2022-04-19] MEDS ORDERED: DEXTROSE 50% SYRINGE 50 ML IVP PRN ×4 (10:06→10:07)
[2022-04-19 11:35] LABS: Glucose,Whole Blood 97 mg/dL (70-110)
[2022-04-19] MEDS: INSULIN DETEMIR (LEVEMIR) 100 UNIT/ML SYR SQ SCH ×2 (11:44→20:51)
[2022-04-19] MEDS: INSULIN ASPART (NovoLOG) 100 UNIT/ML VIAL SQ SCH ×4 (11:47→17:35)
[2022-04-19] MEDS: MAGNESIUM SULFATE-D5W PMX 1 GM in DEXTROSE/WATER 1 100ML.BAG IVPB SCH ×2 (15:10→17:34)
--- NOTE | 2022-04-19 15:11 | P.PN ---
Subjective Progress Note Date: 04/19/22 Patient states that she tolerated her food this morning without any nausea vomiting. Objective - Vital Signs Vital signs: Vital Signs Temp 98.1 F 04/19/22 12:00 Pulse 76 04/19/22 14:00 Resp 16 04/19/22 14:00 BP 119/73 04/19/22 12:00 Pulse Ox 99 04/19/22 12:00 FiO2 Intake & Output 04/18/22 04/19/22 04/19/22 18:59 06:59 18:59 Intake Total 108.925 15.202 7.817 Balance 108.925 15.202 7.817 Weight 68.039 kg 68.039 kg Intake: Intake, IV Titration 108.925 15.202 7.817 Amount Insulin Regular 100 unit 108.925 15.202 7.817 In Sodium Chloride 0.9% 100 ml @ 0.1 UNITS/KG/HR 6.872 mls/hr IV .[id number] [facility] Rx#:[id number] Other: Voiding Method Toilet Toilet # Voids 1 1 1 - Exam General examination - Alert and Oriented 3 in NAD Heart - + S1S2 no murmurs Lungs - Clear to auscultation Abdomen soft NT ND +ve BS Extremities - No edema RED LEADER - Moving all 4 extremities spontaneously Psych - Calm and cooperative - Labs CBC & Chem 7: 04/17/22 22:20 04/19/22 06:00 Labs: Abnormal Lab Results - Last 24 Hours (Table) 04/18/22 04/18/22 04/18/22 Range/Units 17:50 18:31 19:30 Sodium (137-145) mmol/L Carbon Dioxide 15 L (22-30) mmol/L Glucose 160 H (74-99) mg/dL POC Glucose (mg/dL) 136 H 153 H (70-110) mg/dL Hemoglobin A1c (0.0-6.0) % Phosphorus (2.5-4.5) mg/dL 04/18/22 04/18/22 04/18/22 Range/Units 20:09 22:20 23:15 Sodium (137-145) mmol/L Carbon Dioxide (22-30) mmol/L Glucose (74-99) mg/dL POC Glucose (mg/dL) 160 H 145 H 153 H (70-110) mg/dL Hemoglobin A1c (0.0-6.0) % Phosphorus (2.5-4.5) mg/dL 04/19/22 04/19/22 04/19/22 Range/Units 00:01 00:38 01:05 Sodium (137-145) mmol/L Carbon Dioxide 16 L (22-30) mmol/L Glucose 175 H (74-99) mg/dL POC Glucose (mg/dL) 161 H 184 H (70-110) mg/dL Hemoglobin A1c (0.0-6.0) % Phosphorus (2.5-4.5) mg/dL 04/19/22 04/19/22 04/19/22 Range/Units 02:06 03:17 04:02 Sodium (137-145) mmol/L Carbon Dioxide (22-30) mmol/L Glucose (74-99) mg/dL POC Glucose (mg/dL) 179 H 217 H 232 H (70-110) mg/dL Hemoglobin A1c (0.0-6.0) % Phosphorus (2.5-4.5) mg/dL 04/19/22 04/19/22 04/19/22 Range/Units 04:19 05:04 06:00 Sodium (137-145) mmol/L Carbon Dioxide (22-30) mmol/L Glucose (74-99) mg/dL POC Glucose (mg/dL) 250 H 270 H (70-110) mg/dL Hemoglobin A1c 8.2 H (0.0-6.0) % Phosphorus (2.5-4.5) mg/dL 04/19/22 04/19/22 04/19/22 Range/Units 06:00 06:09 06:55 Sodium 135 L (137-145) mmol/L Carbon Dioxide 17 L (22-30) mmol/L Glucose 291 H (74-99) mg/dL POC Glucose (mg/dL) 279 H 298 H (70-110) mg/dL Hemoglobin A1c (0.0-6.0) % Phosphorus 2.0 L (2.5-4.5) mg/dL 04/19/22 04/19/22 Range/Units 08:10 08:55 Sodium (137-145) mmol/L Carbon Dioxide (22-30) mmol/L Glucose (74-99) mg/dL POC Glucose (mg/dL) 275 H 233 H (70-110) mg/dL Hemoglobin A1c (0.0-6.0) % Phosphorus (2.5-4.5) mg/dL Assessment and Plan Assessment: DKA likely exacerbated by COVID-19 This morning anion gap is closed We'll transition her to subcu insulin with Levemir 7 units twice a day and aspar t 4 units before each meal with sliding scale insulin. We'll start the patient on a regular diet COVID-19 Patient is asymptomatic so no need to treat DVT prophylaxis: Subcu Lovenox Full code
[2022-04-19] MEDS: INSULIN REGULAR 100 UNIT in SODIUM CHLORIDE 0.9% 100 ML IV SCH (15:16)
[2022-04-19 16:44] LABS: Glucose,Whole Blood 188 mg/dL (70-110)
[2022-04-19 20:16] LABS: Glucose,Whole Blood 137 mg/dL (70-110)
[2022-04-20 06:40] LABS: Glucose,Whole Blood 72 mg/dL (70-110)
[2022-04-20] MEDS: PANTOPRAZOLE 40 MG TABLET PO SCH (06:42)
[2022-04-20] MEDS: INSULIN ASPART (NovoLOG) 100 UNIT/ML VIAL SQ SCH ×4 (06:42→12:15)
[2022-04-20 07:59] LABS: Glucose,Whole Blood 160 mg/dL (70-110)
[2022-04-20] MEDS: ALPRAZolam 1 MG TAB PO SCH (08:04)
[2022-04-20] MEDS: lamoTRIgine 100 MG TAB PO SCH (08:04)
[2022-04-20] MEDS: ESCITALOPRAM 20 MG TAB PO SCH (08:04)
[2022-04-20] MEDS: INSULIN DETEMIR (LEVEMIR) 100 UNIT/ML SYR SQ SCH (08:04)
[2022-04-20] MEDS: ENOXAPARIN 40 MG/0.4 ML SYRINGE SQ SCH (08:05)
[2022-04-20 09:54] VITALS: PULSE 70; RESP 16; TEMP 98.2
[2022-04-20 11:19] LABS: African American GFR (CKD) >90 (>60 ml/min/1.73 sqM); Anion Gap 7 mmol/L; Blood Urea Nitrogen 10 mg/dL (7-17); Calcium 8.3 mg/dL (8.4-10.2); Carbon Dioxide 25 mmol/L (22-30); Chloride 105 mmol/L (98-107); Glucose 202 mg/dL (74-99); Magnesium 1.9 mg/dL (1.6-2.3); Non-African American GFR(CKD) >90 (>60 ml/min/1.73 sqM); Potassium 3.8 mmol/L (3.5-5.1); Sodium 137 mmol/L (137-145)
--- NOTE | 2022-04-20 12:00 | P.DS ---
Providers Date of admission: 04/17/22 23:37 Expected date of discharge: 04/20/22 Attending physician: Marty Rosas MD Primary care physician: Stated None Hospital Course: Discharge Diagnosis: DKA COVID-19 Hospital Course: Patient is a 41-year-old female with a past medical history of diabetes mellitus who presents to the ED with elevated blood glucose and generalized weakness. Patient was recently diagnosed with diabetes. In the ED patient was found to have COVID-19. She was also found to be in DKA. Patient admitted to our stepdown unit and started on DKA protocol. Once patient's anion gap was closed she was transitioned to subcu insulin. Patient was monitored for another 24 hours on the subcu insulin. The following day patient and an gap remained closed and her bicarbonate had normalized. Patient states that she is feeling much better and was tolerating her diet. She was then deemed stable for discharge. Patient will be discharged on Levemir 7 units twice a day and a customized sliding scale insulin. I discontinued her metformin. Patient is asymptomatic for COVID-19 so it was not treated. Patient seen and examined at bedside.[] Vital signs reviewed and stable. General: [non toxic], [no distress], [appears at stated age] Derm: [warm], [dry] Head: [atraumatic], [normocephalic], [symmetric] Eyes: [EOMI], [no lid lag], [anicteric sclera] Mouth: [no lip lesion], [mucus membranes moist] Cardiovascular: [S1S2 reg], [no murmur], [positive posterior tibial pulse bilateral], Lungs: [CTA bilateral], [no rhonchi, no rales] , [no accessory muscle use] Abdominal: [soft], [ nontender to palpation], [no guarding], [no appreciable organomegaly] Ext: [no gross muscle atrophy], [no edema], [no contractures] Neuro: [ CN II-XI grossly intact], [no focal neuro deficits] Psych: [Alert], [oriented], [appropriate affect] A total of [33] minutes of time were spent preparing this complex discharge summary . Patient Condition at Discharge: Serious Plan - Discharge Summary Discharge Rx Participant: No New Discharge Prescriptions: New Insulin Detemir (Levemir) [Levemir] 7 unit SQ BID 30 Days #1 each INSULIN ASPART (NovoLOG) [NovoLOG (formulary)] See Rx Instructions .ROUTE .COMPLEX 30 Days each Continue lamoTRIgine [LaMICtal] 100 mg PO DAILY ALPRAZolam [Xanax] 0.5 mg PO HS PRN PRN Reason: Anxiety/Insomnia ALPRAZolam [Xanax] 1 mg PO DAILY Escitalopram [Lexapro] 40 mg PO DAILY Discontinued metFORMIN HCL [Glucophage] 500 mg PO Q12H Insulin Detemir (Levemir) [Levemir] 8 unit SQ DAILY Discharge Medication List ALPRAZolam [Xanax] 0.5 mg PO HS PRN 11/27/21 [History] ALPRAZolam [Xanax] 1 mg PO DAILY 11/27/21 [History] lamoTRIgine [LaMICtal] 100 mg PO DAILY 11/27/21 [History] Escitalopram [Lexapro] 40 mg PO DAILY 04/18/22 [History] INSULIN ASPART (NovoLOG) [NovoLOG (formulary)] See Rx Instructions .ROUTE .COMPLEX 30 Days each 04/20/22 [Rx] Insulin Detemir (Levemir) [Levemir] 7 unit SQ BID 30 Days #1 each 04/20/22 [Rx] Follow up Appointment(s)/Referral(s): None,Stated [Primary Care Provider] - 1-2 days Discharge Disposition: HOME SELF-CARE
[2022-04-20 12:14] LABS: Glucose,Whole Blood 173 mg/dL (70-110)
[2022-04-20 13:09] VITALS: BP 125/78
[2022-04-20 16:35] LABS: Basophils # (A) 0.1 k/uL (0-0.2); Basophils % (A) 1 %; Eosinophils % (A) 1 %; HCT 34.8 % (34.0-46.0); HGB 11.3 gm/dL (11.4-16.0); Lymphocytes % (A) 28 %; MCH 30.2 pg (25.0-35.0); MCHC 32.5 g/dL (31.0-37.0); MCV 92.8 fL (80.0-100.0); Mean Platelet Volume 9.2; Monocytes # (A) 0.3 k/uL (0-1.0); Monocytes % (A) 8 %; Neutrophils % (A) 59 %; Platelet Count 214 k/uL (150-450); RBC 3.76 m/uL (3.80-5.40); RDW 13.7 % (11.5-15.5); WBC 3.4 k/uL (3.8-10.6)
== END 2022-04-20 13:24 | disposition home or self-care (01) | DRG 637 ==
LOC: EC 20:52 → 3SCARD 23:37
PROVIDERS: ADMIT Internal Medicine; ATTEND Internal Medicine
DX: E11.10 Type 2 diabetes mellitus with ketoacidosis without coma (principal); U07.1 COVID-19; F31.9 Bipolar disorder, unspecified; F41.9 Anxiety disorder, unspecified; Z28.310 Unvaccinated for COVID-19; Z28.21 Immunization not carried out because of patient refusal; Z79.4 Long term (current) use of insulin; Z79.899 Other long term (current) drug therapy; Z80.3 Family history of malignant neoplasm of breast; Z83.3 Family history of diabetes mellitus; Z87.891 Personal history of nicotine dependence; Z79.84 Long term (current) use of oral hypoglycemic drugs; Z71.3 Dietary counseling and surveillance; Z88.5 Allergy status to narcotic agent; Z88.0 Allergy status to penicillin
CPT/HCPCS: 36415; 80048; 80051; 80053; 81001; 82009; 82565; 82947; 83036; 83735; 84100; 84520; 85025; 85379; 87635; 96361; 96374; 99285

== ENCOUNTER → 2022-05-07 | Outpatient (CLI) | payer OTHER ==
--- NOTE | 2022-05-07 09:33 | US ---
EXAMINATION TYPE: US abdomen complete DATE OF EXAM: 05/07/2022 COMPARISON: NONE CLINICAL HISTORY: R74.8 elevated liver enzymes. Elevated LFT's TECHNIQUE: Multiple sonographic images of the abdomen are obtained. FINDINGS: EXAM MEASUREMENTS: Liver Length: 14.0 cm Gallbladder Wall: 0.2 cm CBD: 0.4 cm Spleen: 7.5 cm Right Kidney: 11.0 x 4.2 x 4.5 cm Left Kidney: 11.2 x 5.1 x 4.8 cm COMMERCIAL MANAGER NOTES: Pancreas: wnl, tail obscured by overlying bowel gas Liver: Hyperechoic area right lobe near hepatic vein= 1.9 x 2.1 x 1.4 cm ?hemangioma- otherwise live r appeared wnl Gallbladder: wnl Evidence for sonographic Keys's sign: No CBD: wnl Spleen: wnl Right Kidney: wnl, lower pole gassed out Left Kidney: wnl Upper IVC: wnl Abd Aorta: wnl The liver shows no dilated intrahepatic biliary ducts. The intrahepatic portion of the IVC and proxi mal abdominal aorta are within normal limits. There is no evidence of cholelithiasis. Common bile d uct is unremarkable. The visualized portions of the pancreas are homogenous. The spleen is unremark able. Kidneys are symmetric and free of hydronephrosis. No renal lesions are seen. IMPRESSION: Echogenic focus within the liver could be related to hemangioma, follow-up dynamic contrast-enhanced MRI or CT could be performed for better evaluation or alternatively follow-up ultrasound to assess fo r stability
== END | disposition home or self-care (01) ==
LOC: RADUSWWP 07:24
PROVIDERS: ATTEND Internal Medicine
DX: R74.8 Abnormal levels of other serum enzymes (principal)
CPT/HCPCS: 76700

== ENCOUNTER → 2022-05-17 | Outpatient (CLI) | payer OTHER ==
--- NOTE | 2022-05-18 06:12 | MR ---
EXAMINATION TYPE: MR liver wo/w con DATE OF EXAM: 05/17/2022 COMPARISON: None HISTORY: High Liver Enzyme Levels CONTRAST: Standard multiplanar, multisequence MRI departmental protocol images were obtained without contrast a nd with 7ml mL intravenous Gadavist gadolinium contrast. Liver has normal size. On the T2 images there is a rounded area of fluid signal within the central ri ght lobe of the liver that measures 2.2 cm in diameter. The bile ducts are not dilated. Spleen is sma ll. There is no sign of pancreatic mass. Stomach is intact. No sign of pleural effusion. The kidneys have normal size and contour. No hydronephrosis. No adrenal mass. No retroperitoneal jena opathy. There is no ascites. There is no evidence of a bowel obstruction. Gallbladder appears normal. Pancreatic duct appears normal. The contrast images show progressive enhancement of the 2 cm liver lesion and consistent with hemangi yelena. IMPRESSION: Hemangioma is demonstrated in the right lobe of the liver. Normal gallbladder.
== END | disposition home or self-care (01) ==
LOC: RADMRIMAIN 13:25
PROVIDERS: ATTEND Internal Medicine
DX: D18.03 Hemangioma of intra-abdominal structures (principal)
CPT/HCPCS: 74183; A9585

== ENCOUNTER → 2022-07-02 | Outpatient (CLI) | payer OTHER ==
--- NOTE | 2022-07-03 08:54 | MM ---
Reason for Exam: Screening (asymptomatic). Baseline mammogram. Patient History: Menarche at age 14. First Full-Term at age 26. Premenopausal. Maternal grandmother had breast cancer at or over age 50. Maternal aunt had breast cancer at or over age 50. Mother had breast cancer at or over age 50. Last menstrual period: 06/20/2022 Risk Values: Dilia 5 year model risk: 1.1%. NCI Lifetime model risk: 18.8%. Prior Study Comparison: Patient's first Mammogram. Tissue Density: The breast tissue is heterogeneously dense. This may lower the sensitivity of mammography. Findings: Analyzed By CAD. There is no suspicious group of microcalcifications or new suspicious mass in either breast. Overall Assessment: Negative, BI-RAD 1 Management: Screening Mammogram of both breasts in 1 year. A clinical breast exam by your physician is recommended on an annual basis and results should be correlated with mammographic findings. [facility] will attempt to contact patient to return for supplemental views and ultrasound if indicated. Electronically signed and approved by: Camilo Trujillo DO
== END | disposition home or self-care (01) ==
LOC: RADMAMWWP 07:29
PROVIDERS: ATTEND Internal Medicine
DX: Z12.31 Encounter for screening mammogram for malignant neoplasm of breast (principal); Z80.3 Family history of malignant neoplasm of breast
CPT/HCPCS: 77063; 77067

== ENCOUNTER → 2023-10-10 | Outpatient (CLI) | payer OTHER ==
--- NOTE | 2023-10-13 13:42 | MM ---
Reason for Exam: Screening (asymptomatic). Last mammogram was performed 1 year(s) and 3 month(s) ago. Patient History: Menarche at age 14. First Full-Term at age 26. Premenopausal. Maternal grandmother had breast cancer at or over age 50. Maternal aunt had breast cancer at or over age 50. Mother had breast cancer at or over age 50. Risk Values: Dilia 5 year model risk: 1.3%. NCI Lifetime model risk: 18.5%. Prior Study Comparison: 07/02/2022 Bilateral MG 3D screening mammo w/cad, [facility]. Tissue Density: The breasts are heterogeneously dense, which may obscure small masses. Findings: Analyzed By CAD. There is no suspicious group of microcalcifications or new suspicious mass. Overall Assessment: Negative, BI-RAD 1 Management: Screening Mammogram of both breasts in [address] [facility] will attempt to contact patient to return for supplemental views and ultrasound if indicated. Patient should continue monthly self-breast exams. A clinical breast exam by your physician is recommended on an annual basis. This exam should not preclude additional follow-up of suspicious palpable abnormalities. Note on Dilia scores and lifetime risk: 1. A Dilia score greater than 3% is considered moderate risk. If this is the case, consider specialist referral to assess eligibility for a risk reducing agent. 2. If overall lifetime risk for the development of breast cancer is 20% or higher, the patient may qualify for future screening with alternating mammogram and breast MRI. Electronically signed and approved by: Camilo Trujillo DO
== END | disposition home or self-care (01) ==
LOC: RADMAMWWP 07:38
PROVIDERS: ATTEND Internal Medicine
DX: Z12.31 Encounter for screening mammogram for malignant neoplasm of breast (principal); Z80.3 Family history of malignant neoplasm of breast
CPT/HCPCS: 77063; 77067

== ENCOUNTER → 2024-03-05 | Outpatient (CLI) | payer OTHER | END | disposition home or self-care (01) | LOC: LABWHC1 07:28 | PROVIDERS: ATTEND Internal Medicine | DX: Z00.00 Encounter for general adult medical examination without abnormal findings (principal); E11.9 Type 2 diabetes mellitus without complications | CPT/HCPCS: 36415; 80053; 80061; 82607; 82728; 82746; 83540; 83550; 84443; 85025 ==

== ENCOUNTER → 2024-05-26 | Outpatient (CLI) | payer OTHER ==
[2024-05-26 16:09] LABS: Basophils # (A) 0.18 X 10*3/uL (0.00-0.10); Basophils % (A) 1.5 %; Eosinophils % (A) 1.6 %; HCT 37.7 % (37.2-46.3); Lymphocytes # (A) 1.94 X 10*3/uL (0.90-5.00); Lymphocytes % (A) 15.7 %; MCH 31.3 pg (27.0-32.0); MCHC 31.8 g/dL (32.0-37.0); MCV 98.2 FL (80.0-97.0); Mean Platelet Volume 9.6 FL (9.5-12.2); Monocytes # (A) 1.05 X 10*3/uL (0.20-1.00); Monocytes % (A) 8.5 %; NRBC Per 100 WBC 0 X 10*3/uL (0.00-0.01); Neutrophils # (A) 8.92 X 10*3/uL (1.80-7.70); Neutrophils % (A) 72.5 %; Platelet Count 391 X 10*3/uL (140-440); RBC 3.84 X 10*6/uL (4.10-5.20); RDW 13.3 % (11.5-14.5); WBC 12.32 X 10*3/uL (4.50-10.00)
[2024-05-26 17:48] LABS: % Iron Saturation 19.31 (12.00-45.00); ALT 20 U/L (8-44); AST 24 U/L (13-35); Albumin 4.3 g/dL (3.8-4.9); Albumin/Globulin Ratio 1.39 Ratio (1.60-3.17); Alkaline Phosphatase 71 U/L (41-126); Blood Urea Nitrogen 14.7 mg/dL (9.0-27.0); Calcium 9.6 mg/dL (8.7-10.3); Carbon Dioxide 23.2 mmol/L (21.6-31.8); Chloride 104 mmol/L (96-109); Ferritin 36.5 ng/mL (10.0-291.0); Globulin 3.1 g/dL (1.6-3.3); Glucose 80 mg/dL (70-110); Iron 73 UG/DL (50-170); Potassium 4.7 mmol/L (3.5-5.5); Sodium 140 mmol/L (135-145); Total Bilirubin 0.4 mg/dL (0.3-1.2); Total Iron Binding Capacity 378 UG/DL (228-460); Total Protein 7.4 g/dL (6.2-8.2)
== END | disposition home or self-care (01) ==
LOC: LABWHC1 11:39
PROVIDERS: ATTEND Internal Medicine
DX: E11.9 Type 2 diabetes mellitus without complications (principal)
CPT/HCPCS: 36415; 80053; 82607; 82728; 82746; 83036; 83540; 83550; 84443; 85025

== ENCOUNTER → 2024-06-04 | Outpatient (CLI) | payer OTHER ==
[2024-06-04 18:13] LABS: Basophils # (A) 0.14 X 10*3/uL (0.00-0.10); Basophils % (A) 1.8 %; Eosinophils # (A) 0.34 X 10*3/uL (0.04-0.35); Eosinophils % (A) 4.4 %; HCT 36.9 % (37.2-46.3); HGB 12.1 g/dL (12.0-15.0); Lymphocytes # (A) 2.44 X 10*3/uL (0.90-5.00); Lymphocytes % (A) 31.9 %; MCHC 32.8 g/dL (32.0-37.0); MCV 97.6 FL (80.0-97.0); Mean Platelet Volume 9.7 FL (9.5-12.2); Monocytes # (A) 0.97 X 10*3/uL (0.20-1.00); Monocytes % (A) 12.7 %; NRBC Per 100 WBC 0 X 10*3/uL (0.00-0.01); Neutrophils # (A) 3.74 X 10*3/uL (1.80-7.70); Neutrophils % (A) 48.9 %; Platelet Count 319 X 10*3/uL (140-440); RBC 3.78 X 10*6/uL (4.10-5.20); RDW 13.3 % (11.5-14.5); WBC 7.65 X 10*3/uL (4.50-10.00)
[2024-06-04 19:19] LABS: Protein, Total 7.3 g/dL (6.2-8.2)
[2024-06-04 19:25] LABS: Hepatitis C IgG Antibody Nonreactive (Nonreactive)
[2024-06-04 23:09] LABS: HIV 2 AB Non-Reactive (Non-Reactive); HIV AB P24 Non-Reactive (Non-Reactive); HIV P24 AG Non-Reactive (Non-Reactive)
== END | disposition home or self-care (01) ==
LOC: LABWHC1 13:28
PROVIDERS: ATTEND Internal Medicine
DX: D72.829 Elevated white blood cell count, unspecified (principal)
CPT/HCPCS: 36415; 84165; 85025; 86038; 86334; 86803; 87390

== ENCOUNTER → 2024-08-11 | Outpatient (CLI) | payer OTHER ==
--- NOTE | 2024-08-11 15:18 | XR ---
EXAMINATION TYPE: XR bone survey complete DATE OF EXAM: 08/11/2024 2:15 PM COMPARISON: Prior plain films. CLINICAL INDICATION: Female, 43 years old with history of D47.2 MONOCLONAL GAMMOPATHY E11.9 J45.998 E 78.5; [facility] TECHNIQUE: Several radiographics images of the axial and appendicular spine were obtained in multipl e projections. FINDINGS: Skull: No lytic or sclerotic lesions are identified. Spine: No lytic or sclerotic lesions are identified. The pedicles are intact. There are no fractures, dislocations or subluxations. Scoliosis changes of the lumbar spine apex left L3. Multilevel degener ation changes throughout the spine with osteophyte formation disc space narrowing facet arthropathy. Chest: No lytic or sclerotic lesions are identified. The ribs have a normal appearance. Abdomen/Pelvis: No lytic or sclerotic lesions are identified. Extremities: No lytic or sclerotic lesions are identified. IMPRESSION: No suspicious lesions. [facility], , 08/11/2024 3:16 PM
== END | disposition home or self-care (01) ==
LOC: RADXRMAIN 13:34
PROVIDERS: ATTEND Internal Medicine Hematology & Oncology
DX: D47.2 Monoclonal gammopathy (principal); E11.9 Type 2 diabetes mellitus without complications; J45.998 Other asthma; E78.5 Hyperlipidemia, unspecified
CPT/HCPCS: 77075

== ENCOUNTER → 2024-11-18 | Outpatient (CLI) | payer OTHER ==
--- NOTE | 2024-11-18 07:31 | MM ---
Reason for Exam: Screening (asymptomatic). Last mammogram was performed 1 year(s) and 1 month(s) ago. Patient History: Menarche at age 14. First Full-Term at age 26. Premenopausal. Maternal grandmother had breast cancer at or over age 50. Maternal aunt had breast cancer at or over age 50. Mother had breast cancer at or over age 50. Last menstrual period: 11/14/2024 Risk Values: Dilia 5 year model risk: 1.4%. NCI Lifetime model risk: 18.3%. Prior Study Comparison: 07/02/2022 Bilateral MG 3D screening mammo w/cad, [facility]. 10/10/2023 Bilateral MG 3D screening mammo w/cad, [facility]. Tissue Density: There are scattered areas of fibroglandular density. Findings: Analyzed By CAD. There is no suspicious group of microcalcifications or new suspicious mass in either breast. Overall Assessment: Negative, BI-RAD 1 Management: Screening Mammogram of both breasts in 1 year. . Patient should continue monthly self-breast exams. A clinical breast exam by your physician is recommended on an annual basis. This exam should not preclude additional follow-up of suspicious palpable abnormalities. Note on Dilia scores and lifetime risk: 1. A Dilia score greater than 3% is considered moderate risk. If this is the case, consider specialist referral to assess eligibility for a risk reducing agent. 2. If overall lifetime risk for the development of breast cancer is 20% or higher, the patient may qualify for future screening with alternating mammogram and breast MRI. [facility], , 11/18/2024 7:28 AM. Electronically signed and approved by: Baljit Prescott M.D. [facility]
== END | disposition home or self-care (01) ==
LOC: RADMAMWWP 07:02
PROVIDERS: ATTEND Internal Medicine
DX: Z12.31 Encounter for screening mammogram for malignant neoplasm of breast (principal); R92.323 Mammographic fibroglandular density, bilateral breasts; Z80.3 Family history of malignant neoplasm of breast
CPT/HCPCS: 77063; 77067